=== PATIENT | female | born 1925 | race Caucasian/White ===

== ENCOUNTER 2016-07-27 06:28 | Inpatient (IN) | payer OTHER ==
--- NOTE | 2016-07-27 08:01 | PDOC ---
History of Present Illness <Saadia Thomas - Last Filed: 07/27/16 09:38> - General History Source: Patient Exam Limitations: No Limitations - History of Present Illness Initial Comments: 07/27/16 07:56 89-year-old high functioning female with history of hypertension and high cholesterol presents with 2 months of intermittent whole-body tremors, exacerbated last night with an episode that awoke her suddenly from sleep. Patient reports daily and almost constant whole-body tremors, described as a wave of shakiness that goes to her throat. The episodes are random, last seconds to minutes, but described as constant. She has no chest pain or palpitations or difficulty breathing, she has had no fevers or chills, no cough or vomiting or diarrhea, no urinary complaints. No changes in her medications, no recent travel or falls. She last saw her PCP, Dr. Yoo, a few months ago prior to symptom onset. Last night, patient awoke from sleep suddenly feeling as though she was gasping for air, so she presents for evaluation. Unclear whether this is typical of her prior episodes, she currently has no respiratory complaints. No known history of sleep apnea or episodes like this during her sleep. She does not use sleep aids. <Storm Gilman - Last Filed: 07/27/16 09:42> - General Chief Complaint: Tremors Stated Complaint: WEAKNESS Time Seen by Provider: 07/27/16 07:07 Past History <Saadia Thomas - Last Filed: 07/27/16 09:38> - Past Medical History HTN: Yes - Psycho/Social/Smoking Cessation Hx Suicidal Ideation: No Smoking History: Never smoked Information on smoking cessation initiated: No <Storm Gilman - Last Filed: 07/27/16 09:42> - Past Medical History Allergies/Adverse Reactions: Allergies Allergy/AdvReac Type Severity Reaction Status Date / Time No Known Allergies Allergy Verified 07/27/16 06:32 Home Medications: Ambulatory Orders Atorvastatin Ca [Lipitor] 40 mg PO DAILY 07/27/16 Bisoprolol Fumarate/Hctz [Bisoprolol-Hctz 10-6.25 mg Tab] 1 each PO DAILY Enalapril Maleate [Vasotec] 20 mg PO BID 07/27/16 Nifedipine ER [Procardia Xl -] 60 mg PO DAILY 07/27/16 Review of Systems - Review of Systems Constitutional: No: Chills, Fever, Night Sweats, Unintentional Wgt. Loss HEENTM: No: Nose Congestion, Throat Pain, Throat Swelling Respiratory: No: Cough, Shortness of Breath Cardiac (ROS): No: Chest Pain, Palpitations ABD/GI: No: Diarrhea, Nausea, Vomiting : No: Burning, Dysuria, Frequency Musculoskeletal: Yes: Other (L jaw mass for years, unchanged, unclear etiology) Neurological: No: Headache, Tingling, Weakness Endocrine: No: Intolerance to Cold, Intolerance to Heat All Other Systems: Reviewed and Negative <Storm Gilman - Last Filed: 07/27/16 09:42> *Physical Exam - Vital Signs Last Vital Signs Temp Pulse Resp BP Pulse Ox 98.5 F 105 H 18 154/77 93 L 07/27/16 06:32 07/27/16 06:32 07/27/16 06:32 07/27/16 06:32 07/27/16 06:32 <Saadia Thomas - Last Filed: 07/27/16 09:38> - Vital Signs Last Vital Signs Temp Pulse Resp BP Pulse Ox 98.5 F 105 H 18 154/77 93 L 07/27/16 06:32 07/27/16 06:32 07/27/16 06:32 07/27/16 06:32 07/27/16 06:32 - Physical Exam Comments: 07/27/16 08:00 Heart rate 90 on exam, afebrile. GENERAL: The patient is awake, alert, and fully oriented, in no acute distress. HEAD: Normal with no signs of trauma. EYES: PERRL, EOMI, sclera anicteric, conjunctiva clear with no pallor. ENT: oropharynx clear without exudates. Moist mucous membranes. Large about 8- 10 cm left facial mass that has been present for years, no evidence of infection or necrosis, nontender. NECK: Normal range of motion, supple without lymphadenopathy, JVD, or masses. LUNGS: Left basilar crackles, otherwise good air entry without wheezing or accessory muscle use HEART: Regular rate and rhythm with occasional premature beats, normal S1 and S2 without murmur or rub. ABDOMEN: Soft/nontender/nondistended. BS wnl. No guarding or rebound. No palpable masses. No hepatosplenomegaly. EXTREMITIES: Normal range of motion, no edema. 2+ distal pulses. No cords, erythema, or tenderness. NEUROLOGICAL: Cranial nerves II through XII grossly intact. Normal speech, normal gait. PSYCH: Normal mood, normal affect. SKIN: Warm, Dry, no rashes or lesions noted. <Storm Gilman - Last Filed: 07/27/16 09:42> Heart Score/ECG Review #1 ECG reviewed & interpreted by me at: 07:18 General ECG Interpretation: Sinus Rhythm (with occasional PAC), Normal Rate, Normal Intervals (QTC 452), No acute ischemic changes <Storm Gilman - Last Filed: 07/27/16 09:42> ED Treatment Course - LABORATORY CBC & Chemistry Diagram: 07/27/16 08:00 07/27/16 08:00 - ADDITIONAL ORDERS Additional order review: Laboratory Results 07/27/16 07/27/16 07/27/16 08:46 08:00 08:00 Sodium 135 L Potassium 3.4 L Chloride 107 Carbon Dioxide 24 Anion Gap 4 L BUN 10 Creatinine 1.2 H Creat Clearance w eGFR 42.30 Random Glucose 113 H Calcium 8.4 L Magnesium 1.9 Total Bilirubin 0.5 AST 12 L ALT 7 L Alkaline Phosphatase 150 H Creatine Kinase Cancelled 50 Troponin I Cancelled 0.02 Total Protein 6.2 L Albumin 3.2 L Urine Color Yellow Urine Appearance Clear Urine pH 5.0 Ur Specific [place] 1.017 Urine Protein Negative Urine Glucose (UA) Negative Urine Ketones Negative Urine Blood Negative Urine Nitrite Negative Urine Bilirubin Negative Urine Urobilinogen 2.0 e.u/dl H Ur Leukocyte Esterase 1+ H Urine Other Qns for micro 07/27/16 08:00 RBC 4.78 MCV 79.4 L MCHC 31.8 L RDW 16.9 H MPV 9.9 Neutrophils % 69.2 Lymphocytes % 18.4 Monocytes % 9.1 Eosinophils % 2.8 Basophils % 0.5 <Saadia Thomas - Last Filed: 07/27/16 09:38> - LABORATORY CBC & Chemistry Diagram: 07/27/16 08:00 07/27/16 08:00 - RADIOLOGY Radiology Studies Ordered: Category Date Time Status CHEST PA & LAT [RAD] Stat Radiology 07/27/16 07:12 Ordered <Storm Gilman - Last Filed: 07/27/16 09:42> Medical Decision Making - Medical Decision Making 07/27/16 09:[address] Donovan Delacruz 07/27/16 09:[address] Nafisa Delacruz. <Saadia Thomas - Last Filed: 07/27/16 09:38> - Medical Decision Making 07/27/16 08:02 89-year-old female with history of hypertension and high cholesterol presents with 2 months of nonspecific complaint of whole body tremor, now with an episode last night that seems consistent with sleep apnea. On arrival, noted to have O2 sat of 93%, has some left basilar crackles but otherwise is very well- appearing. EKG has APC, but otherwise is sinus without ischemia. Question electrolyte abnormality, question underlying infection but less likely, does not appear to be Parkinson-like, question arrhythmia. Will check labs, urinalysis EKG, chest x-ray Reassess, if above is within normal limits, can seek outpatient referral to Dr. Yoo 07/27/16 09:27 Mild electrolyte abnormalities with potassium 3.4, creatinine 1.2. CBC otherwise within normal limits without leukocytosis or severe anemia. Patient complaining of severe dyspnea when walking to the bathroom, no chest pain. On preliminary review of the CXR, there is consolidation in the LLL (? effusion, ? consolidation). Previous xray 5y ago, f/u CT read as diaphragmatic hernia. Given her level of dyspnea, should have cardiac workup given the crackles on exam and borderline O2 sat. 07/27/16 09:41 Accepted for admission by Dr. Delacruz, admitting for Dr. Yoo. <Storm Gilman - Last Filed: 07/27/16 09:42> *DC/Admit/Observation/Transfer <Saadia Thomas - Last Filed: 07/27/16 09:38> - Discharge Dispostion Admit: Yes <Storm Gilman - Last Filed: 07/27/16 09:42> Diagnosis at time of Disposition: Muscle tremor, Dyspnea on exertion - Referrals Referrals: Jeni Yoo MD [Primary Care Provider] -
[2016-07-27 08:14] LABS: BASOPHIL 0.5 % (0-2.0); EOSINOPHIL 2.8 % (0-4.5); MCH 25.3 pg (25.7-33.7); MCHC 31.8 g/dl (32.0-36.0); MEAN CELL VOLUME 79.4 fl (80-96); MEAN PLT VOLUME 9.9 fl (7.5-11.1); NEUTROPHILS 69.2 % (42.8-82.8); PLATELET COUNT 269 K/MM3 (134-434); RDW 16.9 % (11.6-15.6)
[2016-07-27 08:42] LABS: ALBUMIN 3.2 g/dl (3.4-5.0); CALCIUM 8.4 mg/dL (8.5-10.1); CREATININE 1.2 mg/dL (0.55-1.02); MAGNESIUM 1.9 mg/dL (1.8-2.4); TOT PROT 6.2 g/dl (6.4-8.2)
[2016-07-27 08:47] LABS: BILIRUBIN,TOTAL 0.5 mg/dL (0.2-1.0); TROPONIN I 0.02 ng/ml (0.00-0.05)
[2016-07-27 08:59] LABS: URINE APPEARANCE CLEAR; URINE BILIRUBIN NEGATIVE (NEGATIVE); URINE BLOOD NEGATIVE (NEGATIVE); URINE COLOR YELLOW; URINE GLUCOSE (UA) NEGATIVE (NEGATIVE); URINE KETONE NEGATIVE (NEGATIVE); URINE NITRITE NEGATIVE (NEGATIVE); URINE PROTEIN NEGATIVE (NEGATIVE); URINE UROBILINOGEN 2.0 E.U/dl E.U./dl (0.2-1.0)
[2016-07-27 09:07] LABS: URINE LEUK ESTERASE 1+ (NEGATIVE)
[2016-07-27] MEDS ORDERED: AZITHROMYCIN IVPB 500 MG in DEXTROSE 5%-WATER - 250 ML IVPB ONE (09:33)
[2016-07-27] MEDS ORDERED: CEFTRIAXONE 1 GM in DEXTROSE 5%-WATER - 50 ML IVPB ONE (09:33)
[2016-07-27] MEDS ORDERED: CEFTRIAXONE 50 ML ONE (10:00)
[2016-07-27] MEDS ORDERED: AZITHROMYCIN IVPB 250 ML IVPB ONE (10:00)
[2016-07-27] MEDS ORDERED: ONDANSETRON 4 MG/2 ML VIAL IVPB PRN (10:44)
[2016-07-27] MEDS ORDERED: ACETAMINOPHEN 325 MG TABLET (FP) PO PRN (10:44)
--- NOTE | 2016-07-27 10:49 | HP ---
Admitting History and Physical - Primary Care Physician PCP: Jeni Yoo - Admission Chief Complaint: I'm shaking History of Present Illness: Ms Stallings is a pleasant 89 year old female who comes in complaining of shaking. She says she has full body shaking, however she says it is internal in nature. Upon clarification it is not a physical tremor, she says she can walk and do ADLs without interference. She presents because she had an episode where she woke up gasping for breath. She states she does not snore. This has not happened before. She says it resolved quickly but she was concerned and came in. She also has been experiencing lightheadedness off and on over the past few weeks. She denies fevers, chills, dizziness, chest pain or pressure, palpitations, coughing, nausea, vomiting, diarrhea, constipation, difficulty or pain on urination. She says she has chronic swelling in her right leg and this is unchanged. No redness or pain History Source: Patient Limitations to Obtaining History: No Limitations - Past Medical History Cardiovascular: Yes: HTN, Hyperlipdemia - Past Surgical History Past Surgical History: Yes: None - Smoking History Smoking history: Never smoked - Alcohol/Substance Use Hx Alcohol Use: No History of Substance Use: reports: None - Social History Usual Living Arrangement: Yes: Alone ADL: Independent History of Recent Travel: No Home Medications - Allergies Allergies/Adverse Reactions: Allergies Allergy/AdvReac Type Severity Reaction Status Date / Time No Known Allergies Allergy Verified 07/27/16 06:32 - Home Medications Home Medications: Ambulatory Orders Atorvastatin Ca [Lipitor] 40 mg PO DAILY 07/27/16 Bisoprolol Fumarate/Hctz [Bisoprolol-Hctz 10-6.25 mg Tab] 1 each PO DAILY Enalapril Maleate [Vasotec] 20 mg PO BID 07/27/16 Nifedipine ER [Procardia Xl -] 60 mg PO DAILY 07/27/16 Family Disease History - Family Disease History Family History: Unremarkable Review of Systems Findings/Remarks: full review of systems obtained, as per HPI and otherwise negative Physical Examination Vital Signs: Vital Signs Temperature 98.5 F 07/27/16 06:32 Pulse Rate 105 H 07/27/16 06:32 Respiratory Rate 18 07/27/16 06:32 Blood Pressure 154/77 07/27/16 06:32 O2 Sat by Pulse Oximetry (%) 93 L 07/27/16 06:32 Constitutional: Yes: Well Nourished, No Distress, Calm Eyes: Yes: Conjunctiva Clear, EOM Intact HENT: Yes: Atraumatic, Normocephalic Cardiovascular: Yes: Regular Rate and Rhythm. No: Gallop, Murmur, Rub Respiratory: Yes: Regular, CTA Bilaterally. No: Rales, Rhonchi, Wheezes Gastrointestinal: Yes: Normal Bowel Sounds, Soft. No: Distention, Tenderness Extremities: Yes: WNL Edema: Yes Edema: RLE: Trace Labs: Laboratory Results - last 24 hr 07/27/16 07/28/16 07/28/16 16:05 01:10 05:40 WBC 7.3 RBC 4.33 Hgb 10.8 D Hct 33.9 MCV 78.3 L MCHC 32.0 RDW 16.6 H Plt Count 235 MPV 10.6 Neutrophils % 68.9 Lymphocytes % 16.4 Monocytes % 10.8 H Eosinophils % 3.3 Basophils % 0.6 Sodium Potassium Chloride Carbon Dioxide Anion Gap BUN Creatinine Random Glucose Calcium Phosphorus Magnesium Creatine Kinase 73 80 Troponin I 0.02 0.02 07/28/16 05:40 WBC RBC Hgb Hct MCV MCHC RDW Plt Count MPV Neutrophils % Lymphocytes % Monocytes % Eosinophils % Basophils % Sodium 144 Potassium 4.0 Chloride 108 H Carbon Dioxide 27 Anion Gap 9 BUN 10 Creatinine 1.1 H Random Glucose 86 D Calcium 8.3 L Phosphorus 3.0 Magnesium 1.9 Creatine Kinase Troponin I Imaging - Results Chest X-ray: Report Reviewed, Image Reviewed Problem List - Problems (1) Dyspnea on exertion Assessment/Plan: -observation admission, to telemetry -consult pulmonary -? sleep apnea Code(s): R06.09 - OTHER FORMS OF DYSPNEA (2) Muscle tremor Assessment/Plan: -sounds more cardiac than muscular -EKG reviewed -will monitor on telemetry, consult cardiology if needed Code(s): R25.1 - TREMOR, UNSPECIFIED (3) HTN (hypertension) Assessment/Plan: -controlled -continue home regimen Code(s): I10 - ESSENTIAL (PRIMARY) HYPERTENSION (4) HLD (hyperlipidemia) Assessment/Plan: -continue statin Code(s): E78.5 - HYPERLIPIDEMIA, UNSPECIFIED (5) Edema Assessment/Plan: -patient with trace RLE that is chronic -will check ECHO and duplex dopplers for further pathology Code(s): R60.9 - EDEMA, UNSPECIFIED (6) Mass Assessment/Plan: -chronic Code(s): R22.9 - LOCALIZED SWELLING, MASS AND LUMP, UNSPECIFIED
--- NOTE | 2016-07-27 11:01 | EKG ---
Test Reason : Blood Pressure : / mmHG Vent. Rate : 096 BPM Atrial Rate : 096 BPM P-R Int : 146 ms QRS Dur : 084 ms QT Int : 358 ms P-R-T Axes : 046 014 016 degrees QTc Int : 452 ms POOR DATA QUALITY, INTERPRETATION MAY BE ADVERSELY AFFECTED SINUS RHYTHM WITH PREMATURE ATRIAL COMPLEXES OTHERWISE NORMAL ECG WHEN COMPARED WITH ECG OF 08-SEP-2009 04:15, PREMATURE ATRIAL COMPLEXES ARE NOW PRESENT VENT. RATE HAS INCREASED BY 35 BPM Confirmed by TALIA URBAN MD ([id number]) on 07/27/2016 11:00:41 AM Referred By: Confirmed By:TALIA URBAN MD
[2016-07-27 11:08] LABS: THYROID STIMULATING HORMONE 0.93 uIU/ml (0.358-3.74)
[2016-07-27] MEDS ORDERED: HEPARIN NA (PORCINE) 5,000 UNITS/ML 1ML VIAL ONE (14:10)
[2016-07-27] MEDS: HEPARIN NA (PORCINE) 5,000 UNITS/ML 1ML VIAL SQ SCH ×2 (14:18→23:31)
--- NOTE | 2016-07-27 15:41 | CONSULT ---
Consult Consult Specialty:: PULM/CCM Referred by:: RADHA Reason for Consultation:: SOB / abnormal CXR - History of Present Illness Chief Complaint: SOB History of Present Illness: 89 F, with listed medical history. Known LLL hiatal hernia that is documented on CT imaging from 2010. Admitted due to awakening at night during sleep with an episode of gasping for air. No travel history or sick contacts. No fever or chills. No CP or otherwise symptoms of SOB. No significant history that would be consistent with Sleep Apnea. CXR: LLL blunting. - History Source History Provided By: Patient Limitations to Obtaining History: No Limitations - Smoking History Smoking history: Never smoked Home Medications - Allergies Allergies/Adverse Reactions: Allergies Allergy/AdvReac Type Severity Reaction Status Date / Time No Known Allergies Allergy Verified 07/27/16 06:32 - Home Medications Home Medications: Ambulatory Orders Atorvastatin Ca [Lipitor] 40 mg PO DAILY 07/27/16 Bisoprolol Fumarate/Hctz [Bisoprolol-Hctz 10-6.25 mg Tab] 1 each PO DAILY Enalapril Maleate [Vasotec] 20 mg PO BID 07/27/16 Nifedipine ER [Procardia Xl -] 60 mg PO DAILY 07/27/16 Review of Systems - Review of Systems Constitutional: denies: Chills, Fever, Lethargy, Loss of Appetite, Malaise, Night Sweats, Unintentional Wgt. Loss Eyes: reports: No Symptoms HENT: reports: No Symptoms Neck: reports: No Symptoms Cardiovascular: denies: Chest Pain, Palpitations, Shortness of Breath Respiratory: reports: Other (gasping at night). denies: Cough, Hemoptysis, SOB , SOB on Exertion, Wheezing Gastrointestinal: reports: Bloating, Indigestion. denies: Diarrhea, Dysphagia, Rectal Bleeding, Vomiting, Vomiting Blood Genitourinary: reports: No Symptoms Breasts: reports: No Symptoms Reported Musculoskeletal: reports: No Symptoms Integumentary: reports: No Symptoms Neurological: reports: No Symptoms Endocrine: reports: No Symptoms Hematology/Lymphatic: reports: No Symptoms Psychiatric: reports: No Symptoms Physical Exam Vital Signs: Vital Signs Temperature 98.5 F 07/27/16 06:32 Pulse Rate 109 H 07/27/16 14:49 Respiratory Rate 20 07/27/16 14:49 Blood Pressure 146/57 07/27/16 14:49 O2 Sat by Pulse Oximetry (%) 94 L 07/27/16 14:49 Constitutional: Yes: Well Nourished, No Distress, Calm Eyes: Yes: Conjunctiva Clear, EOM Intact HENT: Yes: Atraumatic, Other (Large non-tender mass left parotid area) Neck: Yes: Supple, Trachea Midline Cardiovascular: Yes: Regular Rate and Rhythm Respiratory: Yes: CTA Bilaterally Gastrointestinal: Yes: Normal Bowel Sounds, Soft ...Rectal Exam: Yes: Deferred Renal/: Yes: WNL Breast(s): Yes: WNL Musculoskeletal: Yes: WNL Extremities: Yes: WNL Edema: No Peripheral Pulses WNL: Yes Integumentary: Yes: WNL Neurological: Yes: Alert, Oriented ...Motor Strength: WNL Psychiatric: Yes: WNL, Alert, Oriented Imaging - Results Chest X-ray: Report Reviewed, Image Reviewed Problem List - Problems (1) Muscle tremor Code(s): R25.1 - TREMOR, UNSPECIFIED (2) Hiatal hernia Code(s): K44.9 - DIAPHRAGMATIC HERNIA WITHOUT OBSTRUCTION OR GANGRENE (3) Mass Code(s): R22.9 - LOCALIZED SWELLING, MASS AND LUMP, UNSPECIFIED Assessment/Plan PLAN: Would monitor off ABX for now -> LLL changes are likely due to atelectasis due to long standing Hiatal Hernia Can screen for [facility] as an outpatient O2 only as needed Incentive Spirometry Will need workup and possible biopsy of her left facial mass. Will follow Thank you. Dr Retana
[2016-07-27 16:57] LABS: TROPONIN I 0.02 ng/ml (0.00-0.05)
[2016-07-27 18:28] VITALS: BMI 26.5
[2016-07-27] MEDS: ENALAPRIL MALEATE 10 MG TABLET (FP) PO SCH (23:30)
[2016-07-27] MEDS: DOCUSATE SODIUM 100 MG CAPSULE (FP) PO SCH (23:30)
[2016-07-28 01:50] LABS: TROPONIN I 0.02 ng/ml (0.00-0.05)
[2016-07-28] MEDS: HEPARIN NA (PORCINE) 5,000 UNITS/ML 1ML VIAL SQ SCH (05:57)
[2016-07-28 07:53] LABS: BASOPHIL 0.6 % (0-2.0); EOSINOPHIL 3.3 % (0-4.5); MCH 25.1 pg (25.7-33.7); MEAN CELL VOLUME 78.3 fl (80-96); MEAN PLT VOLUME 10.6 fl (7.5-11.1); NEUTROPHILS 68.9 % (42.8-82.8); PLATELET COUNT 235 K/MM3 (134-434); RDW 16.6 % (11.6-15.6); WHITE BLOOD COUNT 7.3 K/mm3 (4.0-10.0)
[2016-07-28 08:18] LABS: CALCIUM 8.3 mg/dL (8.5-10.1); MAGNESIUM 1.9 mg/dL (1.8-2.4)
[2016-07-28 08:20] LABS: CREATININE 1.1 mg/dL (0.55-1.02)
[2016-07-28] MEDS: DOCUSATE SODIUM 100 MG CAPSULE (FP) PO SCH ×2 (09:02→21:55)
[2016-07-28] MEDS: NIFEdipine E.R 60 MG TABLET (UD) PO SCH (09:02)
[2016-07-28] MEDS: ENALAPRIL MALEATE 10 MG TABLET (FP) PO SCH ×2 (09:02→21:55)
[2016-07-28] MEDS ORDERED: PATIENT'S OWN MEDICATION (NON-FORMULARY) (Bisoprolol Fumarate/Hctz [Bisoprolol-Hctz 10-6.2 PO SCH (10:00)
--- NOTE | 2016-07-28 10:28 | PN ---
Progress Note, Physician History of Present Illness: pulmonary alert,no distress,-sob - Current Medication List Current Medications: Active Medications Acetaminophen (Tylenol -) 650 mg PO Q4H PRN PRN Reason: FEVER OR PAIN Atorvastatin Calcium (Lipitor -) 40 mg PO HS [facility] Docusate Sodium (Colace -) 100 mg PO BID [facility] Last Admin: 07/28/16 09:02 Dose: 100 mg Enalapril Maleate (Vasotec -) 20 mg PO BID [facility] Last Admin: 07/28/16 09:02 Dose: 20 mg Heparin Sodium (Porcine) (Heparin -) 5,000 unit SQ TID [facility] Last Admin: 07/28/16 05:57 Dose: 5,000 unit Nifedipine (Procardia Xl -) 60 mg PO DAILY [facility] Last Admin: 07/28/16 09:02 Dose: 60 mg Non-Formulary Medication (Bisoprolol Fumarate/Hctz [Bisoprolol-Hctz 10-6.25 Mg Tab]) 1 each PO DAILY [facility] Ondansetron HCl (Zofran Injection) 4 mg IVPB Q6H PRN PRN Reason: NAUSEA - Objective Vital Signs: Vital Signs Temperature 98 F 07/28/16 10:00 Pulse Rate 94 H 07/28/16 10:00 Respiratory Rate 18 07/28/16 10:00 Blood Pressure 150/82 07/28/16 10:00 O2 Sat by Pulse Oximetry (%) 97 07/28/16 08:00 Constitutional: Yes: Well Nourished, Calm Eyes: Yes: WNL HENT: Yes: WNL, Other (left facial mass) Neck: Yes: WNL Cardiovascular: Yes: Regular Rate and Rhythm, S1, S2 Respiratory: Yes: Diminished Gastrointestinal: Yes: WNL Extremities: Yes: WNL Edema: No Labs: CBC, BMP 07/28/16 05:40 07/28/16 05:40 Assessment/Plan Problem List - Problems (1) Muscle tremor Code(s): R25.1 - TREMOR, UNSPECIFIED (2) Hiatal hernia Code(s): K44.9 - DIAPHRAGMATIC HERNIA WITHOUT OBSTRUCTION OR GANGRENE (3) Mass Code(s): R22.9 - LOCALIZED SWELLING, MASS AND LUMP, UNSPECIFIED Assessment/Plan PLAN: LLL changes are likely due to atelectasis due to long standing Hiatal Hernia Can screen for [facility] as an outpatient O2 only as needed Incentive Spirometry possible biopsy of her left facial mass. DR PAINTER
[2016-07-28] MEDS ORDERED: ENOXAPARIN NA (PORCINE) 80 MG/0.8 ML DISP.SYRIN SQ SCH ×2 (12:30→12:45)
--- NOTE | 2016-07-28 12:56 | PN ---
Progress Note, Physician Chief Complaint: Ms Stallings says she is not feeling well. Feeling dizzy and short of breath. Also with the internal shaking again. No cp or n/v. - Current Medication List Current Medications: Active Medications Acetaminophen (Tylenol -) 650 mg PO Q4H PRN PRN Reason: FEVER OR PAIN Atorvastatin Calcium (Lipitor -) 40 mg PO HS [facility] Docusate Sodium (Colace -) 100 mg PO BID [facility] Last Admin: 07/28/16 09:02 Dose: 100 mg Enalapril Maleate (Vasotec -) 20 mg PO BID [facility] Last Admin: 07/28/16 09:02 Dose: 20 mg Enoxaparin Sodium (Lovenox -) 70 mg SQ BID [facility] Nifedipine (Procardia Xl -) 60 mg PO DAILY [facility] Last Admin: 07/28/16 09:02 Dose: 60 mg Non-Formulary Medication (Bisoprolol Fumarate/Hctz [Bisoprolol-Hctz 10-6.25 Mg Tab]) 1 each PO DAILY [facility] Ondansetron HCl (Zofran Injection) 4 mg IVPB Q6H PRN PRN Reason: NAUSEA - Objective Vital Signs: Vital Signs Temperature 98 F 07/28/16 10:00 Pulse Rate 94 H 07/28/16 10:00 Respiratory Rate 18 07/28/16 10:00 Blood Pressure 150/82 07/28/16 10:00 O2 Sat by Pulse Oximetry (%) 97 07/28/16 08:00 Constitutional: Yes: Well Nourished, Mild Distress Cardiovascular: Yes: Tachycardia, Pulse Irregular. No: Gallop, Murmur, Rub Respiratory: Yes: Regular, CTA Bilaterally, On Nasal O2. No: Rales, Rhonchi, Wheezes Gastrointestinal: Yes: Normal Bowel Sounds, Soft. No: Distention, Tenderness Extremities: Yes: WNL Edema: Yes Edema: RLE: Trace Labs: CBC, BMP 07/28/16 05:40 07/28/16 05:40 Problem List - Problems (1) Dyspnea on exertion Code(s): R06.09 - OTHER FORMS OF DYSPNEA (2) Muscle tremor Code(s): R25.1 - TREMOR, UNSPECIFIED (3) HTN (hypertension) Code(s): I10 - ESSENTIAL (PRIMARY) HYPERTENSION (4) HLD (hyperlipidemia) Code(s): E78.5 - HYPERLIPIDEMIA, UNSPECIFIED (5) Edema Code(s): R60.9 - EDEMA, UNSPECIFIED (6) Mass Code(s): R22.9 - LOCALIZED SWELLING, MASS AND LUMP, UNSPECIFIED (7) DVT (deep venous thrombosis) Code(s): I82.409 - ACUTE EMBOLISM AND THOMBOS UNSP DEEP VN UNSP LOWER EXTREMITY (8) Tachycardia Code(s): R00.0 - TACHYCARDIA, UNSPECIFIED Assessment/Plan (1) DVT Assessment/Plan: -DVT found on duplex dopplers -change heparin to therapeutic lovenox (2) Tachycardia Assessment/Plan: -DVT found, and ECHO reviewed showing pulmonary HTN -concerning for PE -stat CT scan chest with PE protocol -lovenox as above -cardiology and pulmonary consulted (3) HTN (hypertension) Assessment/Plan: -controlled -continue home regimen Code(s): I10 - ESSENTIAL (PRIMARY) HYPERTENSION (4) HLD (hyperlipidemia) Assessment/Plan: -continue statin Code(s): E78.5 - HYPERLIPIDEMIA, UNSPECIFIED (5) Mass Assessment/Plan: -chronic Code(s): R22.9 - LOCALIZED SWELLING, MASS AND LUMP, UNSPECIFIED
[2016-07-28] MEDS: ENOXAPARIN NA (PORCINE) 80 MG/0.8 ML DISP.SYRIN SQ SCH ×2 (13:09→21:55)
--- NOTE | 2016-07-28 15:37 | EKG ---
Test Reason : Blood Pressure : / mmHG Vent. Rate : 103 BPM Atrial Rate : 103 BPM P-R Int : 142 ms QRS Dur : 076 ms QT Int : 332 ms P-R-T Axes : 016 -08 029 degrees QTc Int : 434 ms SINUS TACHYCARDIA WITH PREMATURE ATRIAL COMPLEXES OTHERWISE NORMAL ECG WHEN COMPARED WITH ECG OF 27-JUL-2016 15:20, NO SIGNIFICANT CHANGE WAS FOUND Confirmed by GARRISON CHAND MD ([id number]) on 07/28/2016 3:37:02 PM Referred By: Alejandro CHAVIS Confirmed By:GARRISON CHAND MD
--- NOTE | 2016-07-28 16:18 | CON.CARD ---
Consult Consult Specialty:: cardio Referred by:: haile Reason for Consultation:: sob, pulm htn - History of Present Illness Chief Complaint: shaking, sob History of Present Illness: 89 yo female admitted for feeling of internal shaking/tremulousness and waking from sleep gasping for air. seen by pulm who reviewed CXR and did not feel any signs of PNA--has chronic hiatal hernia in left lower thorax with what is felt likely to be assctd ATX. she had LE edema noted, duplex showed DVT--AC started. CTA done--no PE Echo showed pulmonary HTN with estimated peak RVSP 58 (please note--this is not indicative of "severe" pulm htn, as described in the echo report). pt is a poor historian: describes pulsation feeling "like a motor" going thru her entire body at times, "everything is beating" not just rapid heart beating and not specifically experienced as palpitations. going on for a month or so. at first she says she constantly feels that way, then says it will calm down after happening for a little while--she cannot say how long the feeling lasts when it occurs. sometimes happens when she is sleeping. denies feeling anxious or nervous of late. feels dizzy, like her balance is off, which is preventing her from walking normally; no presync/syncope denies cp says she feels sob often, cannot elucidate when she feels this but it is not strictly exertional; happens at rest; when asked if wakes her from sleep she states the other night it happened b/c she was having a bad dream she has had a large mass on L side of face near jaw for 2 yrs PMH: HTN HPL hiatal hernia - Past Medical History Cardio/Vascular: Yes: HTN, Hyperlipdemia - Past Surgical History Past Surgical History: Yes: None - Alcohol/Substance Use Hx Alcohol Use: No History of Substance Use: reports: None - Smoking History Smoking history: Never smoked - Social History ADL: Independent History of Recent Travel: No Home Medications - Allergies Allergies/Adverse Reactions: Allergies Allergy/AdvReac Type Severity Reaction Status Date / Time No Known Allergies Allergy Verified 07/27/16 06:32 - Home Medications Home Medications: Ambulatory Orders Atorvastatin Ca [Lipitor] 40 mg PO DAILY 07/27/16 Bisoprolol Fumarate/Hctz [Bisoprolol-Hctz 10-6.25 mg Tab] 1 each PO DAILY Enalapril Maleate [Vasotec] 20 mg PO BID 07/27/16 Nifedipine ER [Procardia Xl -] 60 mg PO DAILY 07/27/16 Family Disease History - Family Disease History Family History: Denies (no cmp) Review of Systems - Review of Systems Constitutional: denies: Chills, Fever Eyes: denies: Eye Pain HENT: denies: Nasal Congestion Neck: denies: Stiffness Cardiovascular: reports: Palpitations (?) Respiratory: reports: PND (?). denies: Orthopnea Gastrointestinal: denies: Diarrhea, Rectal Bleeding Genitourinary: denies: Burning, Hematuria Musculoskeletal: denies: Muscle Pain Integumentary: denies: Rash Neurological: denies: Numbness, Seizure, Syncope Endocrine: denies: Excessive Sweating Hematology/Lymphatic: denies: Excessive Bleeding Vital Signs: Vital Signs Temperature 98.2 F 07/28/16 14:00 Pulse Rate 92 H 07/28/16 14:00 Respiratory Rate 18 07/28/16 14:00 Blood Pressure 138/51 07/28/16 14:00 O2 Sat by Pulse Oximetry (%) 97 07/28/16 08:00 Constitutional: Yes: Well Nourished, No Distress Eyes: No: Sclera Icterus HENT: Yes: Other (large, firm mass extruding from L cheek/jaw area). No: Nasal Congestion Neck: No: Decreased ROM Respiratory: Yes: CTA Bilaterally. No: Accessory Muscle Use, Rales, Wheezes Gastrointestinal: Yes: Normal Bowel Sounds. No: Distention, Hepatomegaly, Palpable Mass, Tenderness Cardiovascular: Yes: Regular Rate and Rhythm JVD: No Carotid Bruit: No PMI: Non-Displaced Heart Sounds: Yes: S1, S2. No: Gallop Murmur: No: Systolic Murmur, Diastolic Murmur Musculoskeletal: Yes: Other (No kyphosis) Extremities: No: Cold, Cyanosis Edema: No Peripheral Pulses: 2+ Left Carotid, 2+ Right Carotid, 2+ Left Doralis Pedis, 2+ Right Dorsalis Pedis Integumentary: No: Jaundice Neurological: Yes: Alert, Oriented (x3) Psychiatric: No: Agitated - Other Data Labs, Other Data: CBC, BMP 07/28/16 05:40 07/28/16 05:40 Troponin, BNP 07/28/16 01:10 Troponin I 0.02 Troponin, BNP 07/28/16 01:10 Troponin I 0.02 Laboratory Tests 07/27/16 07/27/16 07/28/16 08:00 16:05 01:10 WBC Hgb Plt Count Sodium Potassium Carbon Dioxide BUN Creatinine AST 12 L ALT 7 L Troponin I 0.02 0.02 0.02 TSH 0.93 07/28/16 07/28/16 05:40 05:40 WBC 7.3 Hgb 10.8 D Plt Count 235 Sodium 144 Potassium 4.0 Carbon Dioxide 27 BUN 10 Creatinine 1.1 H AST ALT Troponin I TSH ekg #1: NSR with APCs; normal axis/interv; no path q's; nonsp ST-T inferior leads ekg #2 (07/28): NSR with APCs telemetry: sinus with freq APCS, + probable MAT (11:37am); episode of tachy to 130s at 15:22 with loss of visible p-waves, likely paroxysmal AFib Assessment/Plan Echo 07/27/16: nl LV/EF; nl RV; mild LAE/PIPE; mild TR; peak RVSP 58; trivial peric eff not hemody significant sob, PND: -suspect sx's may have correlated with episodes of rapid atrial arrhythmia/AF ( with assctd internal tremulousness as well) -no chf findings on CXR or CT chest here -BNP underwhelming (300s) -highly unlikely that moderately elevated pulm pressure would cause this, if not acutely elevated (which it likely is not here, since no PE found and since RV is not dilated) -will check V/Q to confirm no PE, given suspicion of MAT on tele -sx's could be explained by BONILLA, which could also explain the pulm HTN--rec sleep study as outpt -no isch ecg findings and serial trop neg x 3--stress testing not indicated for this sx, though should consider if she develops activity intolerance or exertional sob parox AF, MAT: -tele mostly sinus with APCs and one episode of suspected MAT; -however there appears to be paroxysmal afib as well -started on AC here for DVT -given CHADS VASC is 4, with approx 4%/year CVA risk (which is > expected bleeding risk from AC), would rec indefinite AC for cva prophylaxis--would start NOAC on discharge which is also indicated for DVT tx (radha, e.g.) -d/c bisprolol and start toprol 25 bid -if continued rapid AF, will change nifedipine to diltiazem tremulousness: -? due to paroxysmal atrial arrhythmia, though her description of persisting sx' s for much of day would argue against this -observe tele to correlate sx's at times of atrial arrhythmia -observe sx's on metopr (+/- diltiazem, depending on tele) -TSH normal LE DVT: -AC per pmd -? hypercoag w/u indicated--defer to dr be HTN: -bp controlled here -changing bisoprolol-HCT to metoprolol for PAF control--monitor bp trend HPL: -cont outpt med regimen
[2016-07-28] MEDS: METOPROLOL SUCCINATE 25 MG TAB.SR.24H (FP) PO SCH (21:55)
[2016-07-28] MEDS: ATORVASTATIN CA 40 MG TABLET (FP) PO SCH (21:55)
[2016-07-29 09:29] LABS: BASOPHIL 0.9 % (0-2.0); EOSINOPHIL 3.2 % (0-4.5); MCHC 31.8 g/dl (32.0-36.0); MEAN CELL VOLUME 78.8 fl (80-96); MEAN PLT VOLUME 9.5 fl (7.5-11.1); NEUTROPHILS 68.5 % (42.8-82.8); PLATELET COUNT 233 K/MM3 (134-434); RDW 16.8 % (11.6-15.6); WHITE BLOOD COUNT 6.1 K/mm3 (4.0-10.0)
[2016-07-29 09:30] LABS: CALCIUM 8.1 mg/dL (8.5-10.1); CREATININE 1.1 mg/dL (0.55-1.02); PHOSPHOROUS 3.6 mg/dL (2.5-4.9)
[2016-07-29 09:32] LABS: MAGNESIUM 1.9 mg/dL (1.8-2.4)
[2016-07-29] MEDS: DOCUSATE SODIUM 100 MG CAPSULE (FP) PO SCH ×2 (09:42→21:37)
[2016-07-29] MEDS: METOPROLOL SUCCINATE 25 MG TAB.SR.24H (FP) PO SCH ×2 (09:43→21:37)
[2016-07-29] MEDS: NIFEdipine E.R 60 MG TABLET (UD) PO SCH (09:43)
[2016-07-29] MEDS: ENOXAPARIN NA (PORCINE) 80 MG/0.8 ML DISP.SYRIN SQ SCH ×2 (09:43→21:38)
[2016-07-29] MEDS: ENALAPRIL MALEATE 10 MG TABLET (FP) PO SCH ×2 (09:43→21:37)
--- NOTE | 2016-07-29 11:28 | PN ---
Progress Note (short form) - Note Progress Note: s: no cp palps dizzy; sob better o: Vital Signs Period Temp Pulse Resp BP Sys/Galvez Pulse Ox Last 24 Hr 97 F-98.2 F 72-99 16-18 122-140/51-88 97-98 Constitutional: Yes: Well Nourished, No Distress Eyes: No: Sclera Icterus Respiratory: Yes: CTA Bilaterally. No: Accessory Muscle Use, Rales, Wheezes Gastrointestinal: Yes: Normal Bowel Sounds. No: Distention, Hepatomegaly, Palpable Mass, Tenderness Cardiovascular: Yes: Regular Rate and Rhythm JVD: No Heart Sounds: Yes: S1, S2. No: Gallop Murmur: No: Systolic Murmur, Diastolic Murmur Extremities: No: Cold, Cyanosis Edema: No Integumentary: No: Jaundice Neurological: Yes: Alert, Oriented (x3) Psychiatric: No: Agitated Current Medications Generic Name Dose Route Start Last Admin Trade Name Freq PRN Reason Stop Dose Admin Acetaminophen 650 mg 07/27/16 10:44 Tylenol - PO Q4H PRN FEVER OR PAIN Atorvastatin Calcium 40 mg 07/28/16 22:00 07/28/16 21:55 Lipitor - PO 40 mg HS MARIELLE Administration Docusate Sodium 100 mg 07/27/16 22:00 07/29/16 09:42 Colace - PO 100 mg BID MARIELLE Administration Enalapril Maleate 20 mg 07/27/16 22:00 07/29/16 09:43 Vasotec - PO 20 mg BID MARIELLE Administration Enoxaparin Sodium 70 mg 07/28/16 12:45 07/29/16 09:43 Lovenox - SQ 70 mg BID MARIELLE Administration Metoprolol Succinate 25 mg 07/28/16 22:00 07/29/16 09:43 Toprol Xl - PO 25 mg BID MARIELLE Administration Nifedipine 60 mg 07/28/16 10:00 07/29/16 09:43 Procardia Xl - PO 60 mg DAILY MARIELLE Administration Ondansetron HCl 4 mg 07/27/16 10:44 Zofran Injection IVPB Q6H PRN NAUSEA CBC, BMP 07/29/16 09:18 07/29/16 05:38 ekg #1: NSR with APCs; normal axis/interv; no path q's; nonsp ST-T inferior leads ekg #2 (1/24): NSR with APCs telemetry: sr, brief atrial run, no afib Echo 07/27/16: nl LV/EF; nl RV; mild LAE/PIPE; mild TR; peak RVSP 58; trivial peric eff not hemody significant Assessment/Plan sob, PND: -suspect sx's may have correlated with episodes of rapid atrial arrhythmia/AF ( with assctd internal tremulousness as well) -no chf findings on CXR or CT chest here -highly unlikely that moderately elevated pulm pressure would cause this, if not acutely elevated (which it likely is not here, since no PE found and since RV is not dilated) -sx's could be explained by BONILLA, which could also explain the pulm HTN--rec sleep study as outpt -no isch ecg findings and serial trop neg x 3--stress testing not indicated for this sx, though should consider if she develops activity intolerance or exertional sob parox AF, MAT: -tele mostly sinus with APCs and one episode of suspected MAT; -however there appears to be paroxysmal afib as well -started on AC here for DVT -given CHADS VASC is 4, with approx 4%/year CVA risk (which is > expected bleeding risk from AC), would rec indefinite AC for cva prophylaxis--would start NOAC on discharge which is also indicated for DVT tx (xarelto, e.g.) -cont toprol 25 bid -if continued rapid AF, will change nifedipine to diltiazem tremulousness: -no obvious cardiac etiology LE DVT: -AC per pmd -? hypercoag w/u indicated--defer to dr be HTN: -bp controlled here -changed bisoprolol-HCT to metoprolol for PAF control HPL: -cont outpt med regimen
--- NOTE | 2016-07-29 19:06 | PN ---
Progress Note, Physician Chief Complaint: Ms Stallings says she is dizzy. Says it is not vertigo, but lightheadedness. Says she feels it every time she stands. No cp, sob, n/v. Patient is incredible anxious. - Current Medication List Current Medications: Active Medications Acetaminophen (Tylenol -) 650 mg PO Q4H PRN PRN Reason: FEVER OR PAIN Atorvastatin Calcium (Lipitor -) 40 mg PO HS [facility] Last Admin: 07/28/16 21:55 Dose: 40 mg Docusate Sodium (Colace -) 100 mg PO BID [facility] Last Admin: 07/29/16 09:42 Dose: 100 mg Enalapril Maleate (Vasotec -) 20 mg PO BID [facility] Last Admin: 07/29/16 09:43 Dose: 20 mg Enoxaparin Sodium (Lovenox -) 70 mg SQ BID [facility] Last Admin: 07/29/16 09:43 Dose: 70 mg Metoprolol Succinate (Toprol Xl -) 25 mg PO BID [facility] Last Admin: 07/29/16 09:43 Dose: 25 mg Nifedipine (Procardia Xl -) 60 mg PO DAILY [facility] Last Admin: 07/29/16 09:43 Dose: 60 mg Ondansetron HCl (Zofran Injection) 4 mg IVPB Q6H PRN PRN Reason: NAUSEA - Objective Vital Signs: Vital Signs Temperature 97.8 F 07/29/16 15:28 Pulse Rate 77 07/29/16 14:42 Respiratory Rate 18 07/29/16 09:00 Blood Pressure 134/60 07/29/16 14:42 O2 Sat by Pulse Oximetry (%) 98 07/29/16 08:00 Constitutional: Yes: Well Nourished, No Distress, Calm HENT: Yes: Other (large L sided mass) Cardiovascular: Yes: Pulse Irregular. No: Tachycardia, Gallop, Murmur, Rub Respiratory: Yes: Regular, CTA Bilaterally. No: Rales, Rhonchi, Wheezes Gastrointestinal: Yes: Normal Bowel Sounds, Soft. No: Distention, Tenderness Extremities: Yes: WNL Edema: No Labs: CBC, BMP 07/29/16 09:18 07/29/16 05:38 Problem List - Problems (1) Dyspnea on exertion Code(s): R06.09 - OTHER FORMS OF DYSPNEA (2) Muscle tremor Code(s): R25.1 - TREMOR, UNSPECIFIED (3) HTN (hypertension) Code(s): I10 - ESSENTIAL (PRIMARY) HYPERTENSION (4) HLD (hyperlipidemia) Code(s): E78.5 - HYPERLIPIDEMIA, UNSPECIFIED (5) Edema Code(s): R60.9 - EDEMA, UNSPECIFIED (6) Mass Code(s): R22.9 - LOCALIZED SWELLING, MASS AND LUMP, UNSPECIFIED (7) DVT (deep venous thrombosis) Code(s): I82.409 - ACUTE EMBOLISM AND THOMBOS UNSP DEEP VN UNSP LOWER EXTREMITY (8) Tachycardia Code(s): R00.0 - TACHYCARDIA, UNSPECIFIED Assessment/Plan (1) DVT Assessment/Plan: -no PE -continue lovenox currently -plan to change to xarelto on discharge (2) Atrial fibrillation Assessment/Plan: -cardiology following and appreciate assistance -found to have atrial fibrillation -will benefit from longterm anticoagulation -started on toprol xl (3) HTN (hypertension) Assessment/Plan: -controlled -continue home regimen Code(s): I10 - ESSENTIAL (PRIMARY) HYPERTENSION (4) HLD (hyperlipidemia) Assessment/Plan: -continue statin Code(s): E78.5 - HYPERLIPIDEMIA, UNSPECIFIED (5) Mass Assessment/Plan: -patient says she was supposed to have this evaluated but was scared -been present for a few years -will obtain CT scan Code(s): R22.9 - LOCALIZED SWELLING, MASS AND LUMP, UNSPECIFIED (6) Lightheadedness -patient specifically says it is not dizziness but lightheadedness -however patient has a lot of non-specific complaints -suspect some of these complaints are secondary to anxiety -however, considering patient has unevaluated facial mass, will obtain CT scan of the head -also check orthostatics -PT consult
[2016-07-29] MEDS: ATORVASTATIN CA 40 MG TABLET (FP) PO SCH (21:37)
[2016-07-30 08:15] LABS: BASOPHIL 0.5 % (0-2.0); EOSINOPHIL 3.8 % (0-4.5); MCH 25.1 pg (25.7-33.7); MCHC 31.6 g/dl (32.0-36.0); MEAN CELL VOLUME 79.3 fl (80-96); MEAN PLT VOLUME 10.8 fl (7.5-11.1); NEUTROPHILS 60.9 % (42.8-82.8); PLATELET COUNT 228 K/MM3 (134-434); RDW 17.3 % (11.6-15.6); WHITE BLOOD COUNT 6.2 K/mm3 (4.0-10.0)
[2016-07-30 08:56] LABS: CALCIUM 8.3 mg/dL (8.5-10.1); MAGNESIUM 2.1 mg/dL (1.8-2.4); PHOSPHOROUS 3.8 mg/dL (2.5-4.9)
--- NOTE | 2016-07-30 10:32 | PN ---
Progress Note (short form) - Note Progress Note: s: no cp palps sob; +dizzy o: Vital Signs Period Temp Pulse Resp BP Sys/Galvez Pulse Ox Last 24 Hr 97.7 F-98.1 F 61-81 18-20 132-136/51-75 Constitutional: Yes: Well Nourished, No Distress Eyes: No: Sclera Icterus Respiratory: Yes: CTA Bilaterally. No: Accessory Muscle Use, Rales, Wheezes Gastrointestinal: Yes: Normal Bowel Sounds. No: Distention, Hepatomegaly, Palpable Mass, Tenderness Cardiovascular: Yes: Regular Rate and Rhythm JVD: No Heart Sounds: Yes: S1, S2. No: Gallop Murmur: No: Systolic Murmur, Diastolic Murmur Extremities: No: Cold, Cyanosis Edema: No Integumentary: No: Jaundice Neurological: Yes: Alert, Oriented (x3) Psychiatric: No: Agitated Current Medications Generic Name Dose Route Start Last Admin Trade Name Freq PRN Reason Stop Dose Admin Acetaminophen 650 mg 07/27/16 10:44 Tylenol - PO Q4H PRN FEVER OR PAIN Atorvastatin Calcium 40 mg 07/28/16 22:00 07/29/16 21:37 Lipitor - PO 40 mg HS MARIELLE Administration Docusate Sodium 100 mg 07/27/16 22:00 07/29/16 21:37 Colace - PO 100 mg BID MARIELLE Administration Enalapril Maleate 20 mg 07/27/16 22:00 07/29/16 21:37 Vasotec - PO 20 mg BID MARIELLE Administration Enoxaparin Sodium 70 mg 07/28/16 12:45 07/29/16 21:38 Lovenox - SQ 70 mg BID MARIELLE Administration Metoprolol Succinate 25 mg 07/28/16 22:00 07/29/16 21:37 Toprol Xl - PO 25 mg BID MARIELLE Administration Nifedipine 60 mg 07/28/16 10:00 07/29/16 09:43 Procardia Xl - PO 60 mg DAILY MARIELLE Administration Ondansetron HCl 4 mg 07/27/16 10:44 Zofran Injection IVPB Q6H PRN NAUSEA CBC, BMP 07/30/16 06:10 07/30/16 06:10 ekg #1: NSR with APCs; normal axis/interv; no path q's; nonsp ST-T inferior leads ekg #2 (07/28): NSR with APCs telemetry: sr, artifact Echo 07/27/16: nl LV/EF; nl RV; mild LAE/PIPE; mild TR; peak RVSP 58; trivial peric eff not hemody significant Assessment/Plan sob, PND: -suspect sx's may have correlated with episodes of rapid atrial arrhythmia/AF ( with assctd internal tremulousness as well) -no chf findings on CXR or CT chest here -highly unlikely that moderately elevated pulm pressure would cause this, if not acutely elevated (which it likely is not here, since no PE found and since RV is not dilated) -sx's could be explained by BONILLA, which could also explain the pulm HTN--rec sleep study as outpt -no isch ecg findings and serial trop neg x 3--stress testing not indicated for this sx, though should consider if she develops activity intolerance or exertional sob parox AF, MAT: -tele mostly sinus with APCs and one episode of suspected MAT; -however there appears to be paroxysmal afib as well -started on AC here for DVT -given CHADS VASC is 4, with approx 4%/year CVA risk (which is > expected bleeding risk from AC), would rec indefinite AC for cva prophylaxis--would start NOAC on discharge which is also indicated for DVT tx (xarelto, e.g.) -cont toprol 25 bid -if continued rapid AF, will change nifedipine to diltiazem tremulousness: -no obvious cardiac etiology LE DVT: -AC per pmd -? hypercoag w/u indicated--defer to dr be HTN: -bp controlled here -changed bisoprolol-HCT to metoprolol for PAF control HPL: -cont outpt med regimen dizzy: -orthostatics normal here -head/neck ct pending
[2016-07-30] MEDS: DOCUSATE SODIUM 100 MG CAPSULE (FP) PO SCH ×2 (11:05→23:04)
[2016-07-30] MEDS: METOPROLOL SUCCINATE 25 MG TAB.SR.24H (FP) PO SCH ×2 (11:05→23:04)
[2016-07-30] MEDS: ENALAPRIL MALEATE 10 MG TABLET (FP) PO SCH ×2 (11:05→23:04)
[2016-07-30] MEDS: NIFEdipine E.R 60 MG TABLET (UD) PO SCH (11:06)
[2016-07-30] MEDS: ENOXAPARIN NA (PORCINE) 80 MG/0.8 ML DISP.SYRIN SQ SCH ×2 (11:06→23:04)
--- NOTE | 2016-07-30 13:26 | PN ---
Progress Note, Physician Chief Complaint: Ms Stallings continues to say she is dizzy, however now is describing it as being off balance. No cp, sob, n/v. - Current Medication List Current Medications: Active Medications Acetaminophen (Tylenol -) 650 mg PO Q4H PRN PRN Reason: FEVER OR PAIN Atorvastatin Calcium (Lipitor -) 40 mg PO HS [facility] Last Admin: 07/29/16 21:37 Dose: 40 mg Docusate Sodium (Colace -) 100 mg PO BID [facility] Last Admin: 07/30/16 11:05 Dose: 100 mg Enalapril Maleate (Vasotec -) 20 mg PO BID [facility] Last Admin: 07/30/16 11:05 Dose: 20 mg Enoxaparin Sodium (Lovenox -) 70 mg SQ BID [facility] Last Admin: 07/30/16 11:06 Dose: 70 mg Metoprolol Succinate (Toprol Xl -) 25 mg PO BID [facility] Last Admin: 07/30/16 11:05 Dose: 25 mg Nifedipine (Procardia Xl -) 60 mg PO DAILY [facility] Last Admin: 07/30/16 11:06 Dose: 60 mg Ondansetron HCl (Zofran Injection) 4 mg IVPB Q6H PRN PRN Reason: NAUSEA - Objective Vital Signs: Vital Signs Temperature 97.7 F 07/30/16 02:00 Pulse Rate 61 07/30/16 06:00 Respiratory Rate 20 07/30/16 06:00 Blood Pressure 134/71 07/30/16 06:00 O2 Sat by Pulse Oximetry (%) 98 07/29/16 08:00 Constitutional: Yes: Well Nourished, No Distress, Calm HENT: Yes: Other (L sided facial mass) Cardiovascular: Yes: Regular Rate and Rhythm. No: Gallop, Murmur, Rub Respiratory: Yes: Regular, CTA Bilaterally. No: Rales, Rhonchi, Wheezes Gastrointestinal: Yes: Normal Bowel Sounds, Soft. No: Distention, Tenderness Extremities: Yes: WNL Edema: No Labs: CBC, BMP 07/30/16 06:10 07/30/16 06:10 Problem List - Problems (1) Dyspnea on exertion Code(s): R06.09 - OTHER FORMS OF DYSPNEA (2) Muscle tremor Code(s): R25.1 - TREMOR, UNSPECIFIED (3) HTN (hypertension) Code(s): I10 - ESSENTIAL (PRIMARY) HYPERTENSION (4) HLD (hyperlipidemia) Code(s): E78.5 - HYPERLIPIDEMIA, UNSPECIFIED (5) Edema Code(s): R60.9 - EDEMA, UNSPECIFIED (6) Mass Code(s): R22.9 - LOCALIZED SWELLING, MASS AND LUMP, UNSPECIFIED (7) DVT (deep venous thrombosis) Code(s): I82.409 - ACUTE EMBOLISM AND THOMBOS UNSP DEEP VN UNSP LOWER EXTREMITY (8) Tachycardia Code(s): R00.0 - TACHYCARDIA, UNSPECIFIED Assessment/Plan (1) DVT Assessment/Plan: -no PE -continue lovenox currently -plan to change to xarelto on discharge (2) Atrial fibrillation Assessment/Plan: -cardiology following and appreciate assistance -found to have atrial fibrillation -will benefit from long term care administrator anticoagulation -continue toprol xl (3) HTN (hypertension) Assessment/Plan: -controlled -continue home regimen Code(s): I10 - ESSENTIAL (PRIMARY) HYPERTENSION (4) HLD (hyperlipidemia) Assessment/Plan: -continue statin Code(s): E78.5 - HYPERLIPIDEMIA, UNSPECIFIED (5) Mass Assessment/Plan: -CT scan of the head and brain obtained -will consult hematology/oncology since has unprovoked DVT and possible weight loss -continue lovenox, patient may need biopsy Code(s): R22.9 - LOCALIZED SWELLING, MASS AND LUMP, UNSPECIFIED (6) Lightheadedness -patient now describes this as being off balance -was saying this happened since she got here, but now says been going on for longer -continue PT, work up mass
--- NOTE | 2016-07-30 14:23 | EKG ---
Test Reason : Blood Pressure : / mmHG Vent. Rate : 099 BPM Atrial Rate : 099 BPM P-R Int : 156 ms QRS Dur : 068 ms QT Int : 354 ms P-R-T Axes : 106 -30 018 degrees QTc Int : 454 ms POOR DATA QUALITY, INTERPRETATION MAY BE ADVERSELY AFFECTED SINUS RHYTHM WITH PREMATURE ATRIAL COMPLEXES LEFT AXIS DEVIATION SEPTAL INFARCT , AGE UNDETERMINED ABNORMAL ECG WHEN COMPARED WITH ECG OF 27-JUL-2016 07:18, QRS AXIS SHIFTED LEFT Confirmed by SHANELLE AGUILAR MD ([id number]) on 07/30/2016 2:23:25 PM Referred By: Confirmed By:SHANELLE AGUILAR MD
--- NOTE | 2016-07-30 17:30 | CONSULT ---
Consult - text type - Consultation Consultation Note: 89-year-old high functioning female with history of hypertension and high cholesterol presents with 2 months of intermittent whole-body tremors, exacerbated last night with an episode that awoke her suddenly from sleep. She reports dizziness and gait unsteadiness and states she cannot walk Lt. parotid mass noted for 2 yrs. Patient was afraid and did not go for any further w/u. Painless mass slowly growing She has no chest pain or palpitations or difficulty breathing, she has had no fevers or chills, no cough or vomiting or diarrhea, no urinary complaints. No changes in her medications, no recent travel or falls. N pain - Past Medical History HTN: Yes Hyperlipidemia - Psycho/Social/Smoking Cessation Hx Smoking History: remote history of smoking Allergies/Adverse Reactions: Allergies Allergy/AdvReac Type Severity Reaction Status Date / Time No Known Allergies Allergy Verified 07/27/16 06:32 Home Medications: Ambulatory Orders Atorvastatin Ca [Lipitor] 40 mg PO DAILY 07/27/16 Bisoprolol Fumarate/Hctz [Bisoprolol-Hctz 10-6.25 mg Tab] 1 each PO DAILY Enalapril Maleate [Vasotec] 20 mg PO BID 07/27/16 Nifedipine ER [Procardia Xl -] 60 mg PO DAILY 07/27/16 Current Medications Acetaminophen (Tylenol -) 650 mg PO Q4H PRN PRN Reason: FEVER OR PAIN Atorvastatin Calcium (Lipitor -) 40 mg PO HS [facility] Last Admin: 07/29/16 21:37 Dose: 40 mg Docusate Sodium (Colace -) 100 mg PO BID [facility] Last Admin: 07/30/16 11:05 Dose: 100 mg Enalapril Maleate (Vasotec -) 20 mg PO BID [facility] Last Admin: 07/30/16 11:05 Dose: 20 mg Enoxaparin Sodium (Lovenox -) 70 mg SQ BID [facility] Last Admin: 07/30/16 11:06 Dose: 70 mg Metoprolol Succinate (Toprol Xl -) 25 mg PO BID [facility] Last Admin: 07/30/16 11:05 Dose: 25 mg Nifedipine (Procardia Xl -) 60 mg PO DAILY [facility] Last Admin: 07/30/16 11:06 Dose: 60 mg Ondansetron HCl (Zofran Injection) 4 mg IVPB Q6H PRN PRN Reason: NAUSEA Last Vital Signs Temp Pulse Resp BP Pulse Ox 98.4 F 64 20 128/68 98 07/30/16 13:39 07/30/16 13:39 07/30/16 13:39 07/30/16 13:39 07/30/16 10:00 HEENT: Lt. parotid, firm, mobile mass Oropharynx: No thrush, No mucositis Nodes: Without adenopathy Breasts: Without masses Cor: RSR, No murmurs, No gallops Lungs: Clear to P&A Abd: Soft, Normal bowel sounds, No organomegaly Ext:No significant edema Skin: No rashes, Integument intact Abnormal Lab Results 07/30/16 07/30/16 06:10 06:10 MCV 79.3 L MCHC 31.6 L RDW 17.3 H Monocytes % 10.3 H Calcium 8.3 L A/P 89 y/o patient presents with tremulous feeling in throat , whole bgait unsteadiness, dizziness, Lt. parotid mass. Noted to have afib. 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 Did not get w/u as she was scared. 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 atrophy, ventricu;ar dilatation and large Lt. parotid mass CT angio chest --no PE will consider MRI , biopsy, consult head and neck surgery, rad-onc rLE post. tibial DVT--on lovenox check PT/PTT to consider xeralto for afib/DVT once Lt. parotid tumor management decided
[2016-07-30] MEDS: ATORVASTATIN CA 40 MG TABLET (FP) PO SCH (23:04)
[2016-07-31 07:23] LABS: BASOPHIL 0.6 % (0-2.0); MCH 25.1 pg (25.7-33.7); MCHC 31.6 g/dl (32.0-36.0); MEAN CELL VOLUME 79.4 fl (80-96); MEAN PLT VOLUME 10.5 fl (7.5-11.1); NEUTROPHILS 69.1 % (42.8-82.8); PLATELET COUNT 219 K/MM3 (134-434); RDW 17.3 % (11.6-15.6); WHITE BLOOD COUNT 8.5 K/mm3 (4.0-10.0)
[2016-07-31 07:51] LABS: CALCIUM 8.2 mg/dL (8.5-10.1); CREATININE 1.1 mg/dL (0.55-1.02); PHOSPHOROUS 3.6 mg/dL (2.5-4.9)
[2016-07-31 08:29] LABS: INR 1.06 (0.82-1.09); PROTHROMBIN TIME (PATIENT) 11.7 SEC (9.98-11.88)
[2016-07-31 08:31] LABS: ACTIVATED PTT 41.5 SECONDS (26.9-34.4)
[2016-07-31] MEDS: METOPROLOL SUCCINATE 25 MG TAB.SR.24H (FP) PO SCH ×2 (09:57→22:30)
[2016-07-31] MEDS: NIFEdipine E.R 60 MG TABLET (UD) PO SCH (09:57)
[2016-07-31] MEDS: ENALAPRIL MALEATE 10 MG TABLET (FP) PO SCH ×2 (09:58→22:30)
[2016-07-31] MEDS: DOCUSATE SODIUM 100 MG CAPSULE (FP) PO SCH ×2 (09:58→22:30)
[2016-07-31] MEDS: ENOXAPARIN NA (PORCINE) 80 MG/0.8 ML DISP.SYRIN SQ SCH ×2 (09:58→22:31)
[2016-07-31 10:02] LABS: FERRITIN 25.557 ng/ml (6.9-282.5)
--- NOTE | 2016-07-31 10:53 | PN ---
Progress Note (short form) - Note Progress Note: s: no cp palps sob; +dizzy/balance issues when walking o: Vital Signs Period Temp Pulse Resp BP Sys/Galvez Pulse Ox Last 24 Hr 97.7 F-98.4 F 61-73 18-20 120-152/51-73 96 Constitutional: Yes: Well Nourished, No Distress Eyes: No: Sclera Icterus Respiratory: Yes: CTA Bilaterally. No: Accessory Muscle Use, Rales, Wheezes Gastrointestinal: Yes: Normal Bowel Sounds. No: Distention, Hepatomegaly, Palpable Mass, Tenderness Cardiovascular: Yes: Regular Rate and Rhythm JVD: No Heart Sounds: Yes: S1, S2. No: Gallop Murmur: No: Systolic Murmur, Diastolic Murmur Extremities: No: Cold, Cyanosis Edema: No Integumentary: No: Jaundice Neurological: Yes: Alert, Oriented (x3) Psychiatric: No: Agitated Current Medications Generic Name Dose Route Start Last Admin Trade Name Freq PRN Reason Stop Dose Admin Acetaminophen 650 mg 07/27/16 10:44 Tylenol - PO Q4H PRN FEVER OR PAIN Atorvastatin Calcium 40 mg 07/28/16 22:00 07/30/16 23:04 Lipitor - PO 40 mg HS MARIELLE Administration Docusate Sodium 100 mg 07/27/16 22:00 07/31/16 09:58 Colace - PO Not Given BID MARIELLE Enalapril Maleate 20 mg 07/27/16 22:00 07/31/16 09:58 Vasotec - PO 20 mg BID MARIELLE Administration Enoxaparin Sodium 70 mg 07/28/16 12:45 07/31/16 09:58 Lovenox - SQ 70 mg BID MARIELLE Administration Metoprolol Succinate 25 mg 07/28/16 22:00 07/31/16 09:57 Toprol Xl - PO 25 mg BID MARIELLE Administration Nifedipine 60 mg 07/28/16 10:00 07/31/16 09:57 Procardia Xl - PO 60 mg DAILY MARIELLE Administration Ondansetron HCl 4 mg 07/27/16 10:44 Zofran Injection IVPB Q6H PRN NAUSEA CBC, BMP 07/31/16 05:35 07/31/16 05:35 ekg #1: NSR with APCs; normal axis/interv; no path q's; nonsp ST-T inferior leads ekg #2 (07/28): NSR with APCs telemetry: sr Echo 07/27/16: nl LV/EF; nl RV; mild LAE/PIPE; mild TR; peak RVSP 58; trivial peric eff not hemody significant Assessment/Plan sob, PND: -suspect sx's may have correlated with episodes of rapid atrial arrhythmia/AF ( with assctd internal tremulousness as well) -no chf findings on CXR or CT chest here -highly unlikely that moderately elevated pulm pressure would cause this, if not acutely elevated (which it likely is not here, since no PE found and since RV is not dilated) -sx's could be explained by BONILLA, which could also explain the pulm HTN--rec sleep study as outpt -no isch ecg findings and serial trop neg x 3--stress testing not indicated for this sx, though should consider if she develops activity intolerance or exertional sob parox AF, MAT: -tele mostly sinus with APCs and one episode of suspected MAT; -however there appears to be paroxysmal afib as well -started on AC here for DVT -given CHADS VASC is 4, with approx 4%/year CVA risk (which is > expected bleeding risk from AC), would rec indefinite AC for cva prophylaxis--would start NOAC on discharge which is also indicated for DVT tx (xarelto, e.g.) -cont toprol 25 bid -tele has remained in SR w/o sig svt>24 hrs, can dc tele now tremulousness: -no obvious cardiac etiology LE DVT: -AC per pmd -? hypercoag w/u indicated--defer to dr be HTN: -bp controlled here -changed bisoprolol-HCT to metoprolol for PAF control HPL: -cont outpt med regimen dizzy/poor balance: -orthostatics normal here -neck ct showing large parotid mass. onc following.
--- NOTE | 2016-07-31 11:55 | PN ---
Progress Note (short form) - Note Progress Note: Radiation Oncology Pt seen/examined, chart/films reviewed, full consult dictated. 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 Will need biopsy for diagnosis. Agree w ENT/head and neck surgery consult. MRI neck w contrast to also r/o auditory canal/VIIIth nerve involvement. Consider neurology consult for ataxia/balance issues. Further mgt rec will follow once tissue dx is made.
--- NOTE | 2016-07-31 12:20 | CONSULT ---
Consult - text type - Consultation Consultation Note: Patient seen and examined. 89 y/o highly functional woman admitted for weakness/dyspnea found to have atrial fibrillation and placed on oxygen and anticoagulation. Has had a left parotid mass for the last two years which has grown steadily. No facial weakness, no difficulty chewing or eating. PMH: DVT. SH: ex-smoker quit at age 32. Exam: well-appearing elderly woman in no distress. 4 cm left parotid mass, firm , not very mobile but not completely fixed. no facial nerve weakness. No oral cavity mass, edentulous. No neck or axillary adenopathy. Neck/Face CT reviewed. Large solid mass of the left parotid. 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 I recommend fine needle aspiration biopsy. No need to stop anticoagulation for this. Regardless of result would recommend parotidectomy with facial nerve dissection if and when medically cleared. Explained to the patient risks and benefits of this procedure including facial weakness. She understands and will consider proceeding but wants the biopsy first. Given my card and asked to follow up with me if she is discharged from the hospital. this operation does not necessarily need to be done on this admission but she can see me in my [facility] office and be scheduled. Any questions [phone]. Thank you. Rafael Dumont MD
--- NOTE | 2016-07-31 12:32 | PN ---
Progress Note, Physician Chief Complaint: Ms Stallings still with loss of balance. No cp, sob, n/v. - Current Medication List Current Medications: Active Medications Acetaminophen (Tylenol -) 650 mg PO Q4H PRN PRN Reason: FEVER OR PAIN Atorvastatin Calcium (Lipitor -) 40 mg PO HS [facility] Last Admin: 07/30/16 23:04 Dose: 40 mg Docusate Sodium (Colace -) 100 mg PO BID [facility] Last Admin: 07/31/16 09:58 Dose: Not Given Enalapril Maleate (Vasotec -) 20 mg PO BID [facility] Last Admin: 07/31/16 09:58 Dose: 20 mg Enoxaparin Sodium (Lovenox -) 70 mg SQ BID [facility] Last Admin: 07/31/16 09:58 Dose: 70 mg Metoprolol Succinate (Toprol Xl -) 25 mg PO BID [facility] Last Admin: 07/31/16 09:57 Dose: 25 mg Nifedipine (Procardia Xl -) 60 mg PO DAILY [facility] Last Admin: 07/31/16 09:57 Dose: 60 mg Ondansetron HCl (Zofran Injection) 4 mg IVPB Q6H PRN PRN Reason: NAUSEA - Objective Vital Signs: Vital Signs Temperature 97.9 F 07/31/16 02:00 Pulse Rate 67 07/31/16 06:00 Respiratory Rate 20 07/31/16 06:00 Blood Pressure 121/57 07/31/16 06:00 O2 Sat by Pulse Oximetry (%) 96 07/30/16 21:00 Constitutional: Yes: Well Nourished, No Distress, Calm HENT: Yes: Other (L sided facial mass) Cardiovascular: Yes: Regular Rate and Rhythm. No: Gallop, Murmur, Rub Respiratory: Yes: Regular, CTA Bilaterally. No: Rales, Rhonchi, Wheezes Gastrointestinal: Yes: Normal Bowel Sounds, Soft. No: Distention, Tenderness Extremities: Yes: WNL Edema: No Labs: CBC, BMP 07/31/16 05:35 07/31/16 05:35 INR, PTT INR 1.06 (0.82-1.09) 07/31/16 05:35 Problem List - Problems (1) Dyspnea on exertion Code(s): R06.09 - OTHER FORMS OF DYSPNEA (2) Muscle tremor Code(s): R25.1 - TREMOR, UNSPECIFIED (3) HTN (hypertension) Code(s): I10 - ESSENTIAL (PRIMARY) HYPERTENSION (4) HLD (hyperlipidemia) Code(s): E78.5 - HYPERLIPIDEMIA, UNSPECIFIED (5) Edema Code(s): R60.9 - EDEMA, UNSPECIFIED (6) Mass Code(s): R22.9 - LOCALIZED SWELLING, MASS AND LUMP, UNSPECIFIED (7) DVT (deep venous thrombosis) Code(s): I82.409 - ACUTE EMBOLISM AND THOMBOS UNSP DEEP VN UNSP LOWER EXTREMITY (8) Tachycardia Code(s): R00.0 - TACHYCARDIA, UNSPECIFIED Assessment/Plan (1) DVT Assessment/Plan: -no PE -continue lovenox currently -plan to change to xarelto on discharge (2) Atrial fibrillation Assessment/Plan: -cardiology following and appreciate assistance -found to have atrial fibrillation -will benefit from manager terminal anticoagulation -continue toprol xl (3) HTN (hypertension) Assessment/Plan: -controlled -continue home regimen Code(s): I10 - ESSENTIAL (PRIMARY) HYPERTENSION (4) HLD (hyperlipidemia) Assessment/Plan: -continue statin Code(s): E78.5 - HYPERLIPIDEMIA, UNSPECIFIED (5) Mass Assessment/Plan: -concerning for parotid malignancy -appreciate oncology, radiation oncology, and ENT assistance -planning for biopsy on Wednesday -will need to hold wednesday night lovenox Code(s): R22.9 - LOCALIZED SWELLING, MASS AND LUMP, UNSPECIFIED (6) Lightheadedness -monitor, not improving -? if secondary to mass
--- NOTE | 2016-07-31 13:30 | CONS ---
DATE OF CONSULTATION: 07/31/2016 REFERRING PHYSICIAN: Mercedes Hayward MD REASON FOR CONSULTATION: Left parotid mass. HISTORY OF PRESENT ILLNESS: The patient is an 89-year-old woman with a history of whole body tremors that awoke her in her sleep. She has had a slowly enlarging painless left neck mass for the past 2 years and avoided workup due to fear of diagnosis. She reports no swallowing, chewing, or hearing difficulties. She does have dizziness associated with gait unsteadiness and imbalance. On admission, she was noted to have a right lower extremity DVT on ultrasound. CT angiogram failed to show pulmonary embolism, pulmonary mass, or mediastinal lymphadenopathy. A CT of the head and facial bones showed a 5.3-cm left parotid soft tissue mass with patent airway and no airway narrowing. Now asked to evaluate for further management. There is no history of prior radiotherapy or collagen vascular disease. PAST MEDICAL HISTORY: Hyperlipidemia, hypertension, lower extremity DVT, paroxysmal atrial fibrillation recently diagnosed. ALLERGIES: No known drug allergies. CURRENT MEDICATIONS: Vasotec, Lovenox subcutaneous, Toprol XL, Colace, Procardia XL, Lipitor. SOCIAL HISTORY: She is unmarried. She has no children. 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 She has a remote smoking history and consumes alcoholic beverages on social occasions. FAMILY HISTORY: Denies any malignancy. REVIEW OF SYSTEMS: No nausea, vomiting, visual changes, cough, or chest pain. There is no leg pain. No recent fevers or chills. PHYSICAL EXAMINATION General: She appears well, in no acute distress, lying in a hospital bed. She is a female appearing her chronological age. Vital signs: Temperature 97.9, pulse 63, blood pressure 120/55, respiratory rate 20. HEENT: Normocephalic and atraumatic. Moist mucous membranes. Anicteric sclerae. Clear oral cavity. Large 5-cm firm, nontender preauricular mass extending to the left neck. No appreciable submandibular or right neck adenopathy. Trachea is midline. No supraclavicular adenopathy. Chest: No wheezes, rales, or rhonchi. Cardiovascular: Regular. Abdomen: Soft, nontender, nondistended. Extremities: Normal range of motion. Musculoskeletal: No spine or CVA tenderness. Neurologic: Grossly nonfocal. Gait was not tested as she has unsteadiness and balance issues. Coordination [id number] and [id number] are within normal limits. RADIOLOGIC DATA: Ultrasound of the lower extremity, CT angiogram, CT head and facial bones as noted previously. LABORATORY DATA: WBC 8.5, hemoglobin 10.6, platelet count 219,000. Electrolytes within normal limits, BUN 10, creatinine 1.1, calcium 8.2, alkaline phosphatase 150, albumin 3.2. 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 She will need a biopsy for diagnosis. I agree with ENT/head and neck surgery consult and MRI of the neck with contrast to rule out auditory canal and 8th cranial nerve involvement given her balance issues. I would also consider a neurology consult for the same. Further recommendations will follow once the tissue diagnosis is obtained. Thank you for asking me to see this patient. ABRAHAM RUBIO M.D. [id number] MTDD
--- NOTE | 2016-07-31 17:23 | PN ---
Progress Note (short form) - Note Progress Note: PAtient seen and examined still with unsteady gait Last Vital Signs Temp Pulse Resp BP Pulse Ox 98.4 F 62 20 120/54 96 07/31/16 14:26 07/31/16 14:26 07/31/16 14:26 07/31/16 14:07/30/16 21:00 HEENT: DAMASO, EOM Intact Oropharynx: No thrush, No mucositis Cor: RSR, No murmurs, No gallops Lungs: Clear to P&A Abd: Soft, Normal bowel sounds, No organomegaly Ext:No significant edema Skin: No rashes, Integument intact Abnormal Lab Results 07/31/16 07/31/16 07/31/16 05:35 05:35 05:35 Hgb 10.6 L MCV 79.4 L MCHC 31.6 L RDW 17.3 H PTT (Actin FS) 41.5 H Chloride 108 H Creatinine 1.1 H Calcium 8.2 L Current Medications Acetaminophen (Tylenol -) 650 mg PO Q4H PRN PRN Reason: FEVER OR PAIN Atorvastatin Calcium (Lipitor -) 40 mg PO HS [facility] Last Admin: 07/30/16 23:04 Dose: 40 mg Docusate Sodium (Colace -) 100 mg PO BID [facility] Last Admin: 07/31/16 09:58 Dose: Not Given Enalapril Maleate (Vasotec -) 20 mg PO BID [facility] Last Admin: 07/31/16 09:58 Dose: 20 mg Enoxaparin Sodium (Lovenox -) 70 mg SQ BID [facility] Last Admin: 07/31/16 09:58 Dose: 70 mg Metoprolol Succinate (Toprol Xl -) 25 mg PO BID [facility] Last Admin: 07/31/16 09:57 Dose: 25 mg Nifedipine (Procardia Xl -) 60 mg PO DAILY [facility] Last Admin: 07/31/16 09:57 Dose: 60 mg Ondansetron HCl (Zofran Injection) 4 mg IVPB Q6H PRN PRN Reason: NAUSEA A/P 89 y/o patient presents with tremulous feeling in throat , whole gait unsteadiness, dizziness, Lt. parotid mass. Noted to have afib. 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 Did not get w/u as she was scared. 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 atrophy, ventricular dilatation and large Lt. parotid mass CT angio chest --no PE will get MRI face/neck and MRI IAC to r/o extension of tumor Will consult neurology regarding unsteadiness of gait will need FNA/core bx of lesion discussed with Dr. Dumont --patient to f/u outpatient with him for considerationof resection Rad-onc input appreciated RLE post. tibial DVT--on lovenox check PT/PTT to consider xeralto for afib/DVT once Lt. parotid tumor management decided
[2016-07-31] MEDS: ATORVASTATIN CA 40 MG TABLET (FP) PO SCH (22:30)
[2016-08-01 06:07] LABS: SERUM IRON 35 ug/dL (27-139); TOTAL IRON BINDING CAPACITY 201 ug/dL (250-450); UIBC 166 ug/dL (118-369)
[2016-08-01 06:56] LABS: BASOPHIL 0.8 % (0-2.0); EOSINOPHIL 3.7 % (0-4.5); MCH 25.1 pg (25.7-33.7); MCHC 31.7 g/dl (32.0-36.0); MEAN CELL VOLUME 79.2 fl (80-96); MEAN PLT VOLUME 10.2 fl (7.5-11.1); NEUTROPHILS 59.3 % (42.8-82.8); PLATELET COUNT 237 K/MM3 (134-434); RDW 17.3 % (11.6-15.6); WHITE BLOOD COUNT 5.5 K/mm3 (4.0-10.0)
[2016-08-01 07:48] LABS: CALCIUM 8.1 mg/dL (8.5-10.1); CREATININE 1.1 mg/dL (0.55-1.02); MAGNESIUM 1.9 mg/dL (1.8-2.4)
--- NOTE | 2016-08-01 08:54 | PN ---
Progress Note, Physician Chief Complaint: afib History of Present Illness: no sob or pnd; no palpitations or cp; still feels weak and ? dizzy--cannot walk at all; still feels trembling internally frequently, milder than before but still there - Current Medication List Current Medications: Active Medications Acetaminophen (Tylenol -) 650 mg PO Q4H PRN PRN Reason: FEVER OR PAIN Atorvastatin Calcium (Lipitor -) 40 mg PO HS [facility] Last Admin: 07/31/16 22:30 Dose: 40 mg Docusate Sodium (Colace -) 100 mg PO BID [facility] Last Admin: 07/31/16 22:30 Dose: 100 mg Enalapril Maleate (Vasotec -) 20 mg PO BID [facility] Last Admin: 07/31/16 22:30 Dose: 20 mg Enoxaparin Sodium (Lovenox -) 70 mg SQ BID [facility] Last Admin: 07/31/16 22:31 Dose: 70 mg Metoprolol Succinate (Toprol Xl -) 25 mg PO BID [facility] Last Admin: 07/31/16 22:30 Dose: 25 mg Nifedipine (Procardia Xl -) 60 mg PO DAILY [facility] Last Admin: 07/31/16 09:57 Dose: 60 mg Ondansetron HCl (Zofran Injection) 4 mg IVPB Q6H PRN PRN Reason: NAUSEA - Objective Vital Signs: Vital Signs Temperature 97.0 F L 07/31/16 21:04 Pulse Rate 62 08/01/16 06:00 Respiratory Rate 20 08/01/16 06:00 Blood Pressure 123/60 08/01/16 06:00 O2 Sat by Pulse Oximetry (%) 95 07/31/16 21:00 Constitutional: Yes: Well Nourished, No Distress, Calm Cardiovascular: Yes: Regular Rate and Rhythm, S1, S2. No: Gallop, Murmur Respiratory: Yes: Regular, CTA Bilaterally. No: Accessory Muscle Use, Wheezes Extremities: No: Cold Edema: No Neurological: Yes: Alert, Oriented Psychiatric: No: Agitated Labs: CBC, BMP 08/01/16 05:35 08/01/16 05:35 INR, PTT INR 1.06 (0.82-1.09) 07/31/16 05:35 - ....Imaging EKG: Other (tele: NSR) Assessment/Plan Echo 07/27/16: nl LV/EF; nl RV; mild LAE/PIPE; mild TR; peak RVSP 58; trivial peric eff not hemody significant Assessment/Plan sob, PND: -sx's may have correlated with episodes of rapid atrial arrhythmia/AF (with assctd internal tremulousness as well) -no chf findings on CXR or CT chest here -highly unlikely that moderately elevated pulm pressure would cause this, if not acutely elevated (no PE on CTA, and RV not dilated) -sx's could be explained by BONILLA, which could also explain the pulm HTN--rec sleep study as outpt once more acute issues are dealt with -defer ischemia eval, per prior notes parox AF, MAT: -tele with suspected MAT; -however there appeared to be paroxysmal afib as well (this is clearly not the cause of her vague internal tremulousness, as this sx persists despite no AF on monitor -started on AC here for DVT -given CHADS VASC is 4, with approx 4%/year CVA risk (which is > expected bleeding risk from AC), would rec indefinite AC for cva prophylaxis -cont lovenox for now until definitely not in need of invasive biopsies/ surgical resection -plan is to change to NOAC that has DVT indication as well on discharge ( xarelto or eliquis) -cont toprol 25 bid -tele continues to show sinus rhythm for 48 hrs or more LE DVT: -AC per pmd -? hypercoag w/u indicated--defer to dr be parotid mass: -seen by onc, rad-onc, and head/neck surgery--for outpt biopsy +/- resection HTN: -bp controlled here -changed bisoprolol-HCT to metoprolol for PAF control HPL: -cont outpt med regimen dizzy/poor balance: -orthostatics normal here -neck ct showing large parotid mass, neuro consulted per Onc recs NO ONGOING INDICATION FOR TELE--D/C
[2016-08-01] MEDS: ENALAPRIL MALEATE 10 MG TABLET (FP) PO SCH ×2 (10:10→21:59)
[2016-08-01] MEDS: METOPROLOL SUCCINATE 25 MG TAB.SR.24H (FP) PO SCH ×2 (10:11→21:59)
[2016-08-01] MEDS: DOCUSATE SODIUM 100 MG CAPSULE (FP) PO SCH ×2 (10:11→21:59)
[2016-08-01] MEDS: ENOXAPARIN NA (PORCINE) 80 MG/0.8 ML DISP.SYRIN SQ SCH ×2 (10:11→22:27)
[2016-08-01] MEDS: NIFEdipine E.R 60 MG TABLET (UD) PO SCH (10:11)
--- NOTE | 2016-08-01 11:30 | CONSULT ---
Consult Consult Specialty:: Neurology Reason for Consultation:: weakness, unsteady gait - History of Present Illness History of Present Illness: 89 year old woman with historyof left parotid mass, hypertension, hyperlipidemia , presents with complaints of lightheadedness, whole body tremor, and unsteady gait ongoing for one to two months. CT head revealed moderate atrophy with a left parotid mass which is currently being investigated. Neurology called for evaluation of above symptoms. Patient reports whole body, pulsating tremor, no tremor noted on exam. Regarding dizziness, denies vertigo but reports lightheadedness and also reports "weak all over." States when trying to walk she is unable to do so. - Past Medical History Cardio/Vascular: Yes: HTN, Hyperlipdemia - Past Surgical History Past Surgical History: Yes: None - Alcohol/Substance Use Hx Alcohol Use: No History of Substance Use: reports: None - Smoking History Smoking history: Never smoked - Social History ADL: Independent History of Recent Travel: No Home Medications - Allergies Allergies/Adverse Reactions: Allergies Allergy/AdvReac Type Severity Reaction Status Date / Time No Known Allergies Allergy Verified 07/27/16 06:32 - Home Medications Home Medications: Ambulatory Orders Atorvastatin Ca [Lipitor] 40 mg PO DAILY 07/27/16 Bisoprolol Fumarate/Hctz [Bisoprolol-Hctz 10-6.25 mg Tab] 1 each PO DAILY Enalapril Maleate [Vasotec] 20 mg PO BID 07/27/16 Nifedipine ER [Procardia Xl -] 60 mg PO DAILY 07/27/16 Review of Systems - Review of Systems Constitutional: reports: Weakness Eyes: reports: No Symptoms Neurological: reports: Unsteady Gait, Weakness Physical Exam Vital Signs: Vital Signs Temperature 97.0 F L 07/31/16 21:04 Pulse Rate 62 08/01/16 06:00 Respiratory Rate 20 08/01/16 06:00 Blood Pressure 123/60 08/01/16 06:00 O2 Sat by Pulse Oximetry (%) 95 07/31/16 21:00 Constitutional: Yes: Well Nourished, No Distress, Other Eyes: Yes: Conjunctiva Clear HENT: Yes: Atraumatic, Normocephalic Cardiovascular: Yes: S1, S2 Respiratory: Yes: Regular Neurological: Yes: Alert, Oriented, Cran Nerves II-XII Intact, Other (moving all extremities equally against gravity without obvious focality, bilateral lower extremities 4/5 hip flexion) Labs: CBC, BMP 08/01/16 05:35 08/01/16 05:35 Problem List - Problems (1) Dyspnea on exertion Code(s): R06.09 - OTHER FORMS OF DYSPNEA (2) Edema Code(s): R60.9 - EDEMA, UNSPECIFIED (3) Mass Code(s): R22.9 - LOCALIZED SWELLING, MASS AND LUMP, UNSPECIFIED Assessment/Plan 89 year old woman with historyof left parotid mass, hypertension, hyperlipidemia , presents with complaints of lightheadedness, whole body tremor, and unsteady gait ongoing for one to two months. CT head revealed moderate atrophy with a left parotid mass which is currently being investigated. Neurology called for evaluation of above symptoms. Patient reports whole body, pulsating tremor, no tremor noted on exam. Regarding dizziness, denies vertigo but reports lightheadedness and also reports "weak all over." States when trying to walk she is unable to do so. Recommend Orthostatics negative MRI brain without contrast Physical therapy
--- NOTE | 2016-08-01 12:58 | PN ---
Progress Note (short form) - Note Progress Note: No SOB No chest pain Fatigue O/E Heart regular Lungs clear Abd soft Ext no edema Vital Signs Period Temp Pulse Resp BP Sys/Galvez Pulse Ox Last 24 Hr 97.0 F-98.4 F 62-72 19-20 120-135/54-74 93-95 Current Medications Acetaminophen (Tylenol -) 650 mg PO Q4H PRN PRN Reason: FEVER OR PAIN Atorvastatin Calcium (Lipitor -) 40 mg PO HS [facility] Last Admin: 07/31/16 22:30 Dose: 40 mg Docusate Sodium (Colace -) 100 mg PO BID [facility] Last Admin: 08/01/16 10:11 Dose: 100 mg Enalapril Maleate (Vasotec -) 20 mg PO BID [facility] Last Admin: 08/01/16 10:10 Dose: 20 mg Enoxaparin Sodium (Lovenox -) 70 mg SQ BID [facility] Last Admin: 08/01/16 10:11 Dose: 70 mg Metoprolol Succinate (Toprol Xl -) 25 mg PO BID [facility] Last Admin: 08/01/16 10:11 Dose: 25 mg Nifedipine (Procardia Xl -) 60 mg PO DAILY [facility] Last Admin: 08/01/16 10:11 Dose: 60 mg Ondansetron HCl (Zofran Injection) 4 mg IVPB Q6H PRN PRN Reason: NAUSEA Laboratory Results - last 24 hr 07/31/16 08/01/16 08/01/16 05:35 05:35 05:35 WBC 5.5 D RBC 4.31 Hgb 10.8 Hct 34.1 MCV 79.2 L MCHC 31.7 L RDW 17.3 H Plt Count 237 MPV 10.2 Neutrophils % 59.3 Lymphocytes % 25.9 D Monocytes % 10.3 H Eosinophils % 3.7 D Basophils % 0.8 Sodium 144 Potassium 3.9 Chloride 106 Carbon Dioxide 28 Anion Gap 10 BUN 14 D Creatinine 1.1 H Random Glucose 86 Calcium 8.1 L Phosphorus 3.0 Magnesium 1.9 Iron 35 TIBC 201 L Iron Saturation 17 Assessment/Plan (1) DVT Assessment/Plan: -no PE Change to Eliquis fter Biopsy (2) Atrial fibrillation Assessment/Plan: as above) Assessment/Plan: -controlled -continue home regimen Code(s): I10 - ESSENTIAL (PRIMARY) HYPERTENSION (4) HLD (hyperlipidemia) Assessment/Plan: -continue statin Code(s): E78.5 - HYPERLIPIDEMIA, UNSPECIFIED (5) Mass Assessment/Plan: -planning for biopsy on Wednesday -will need to hold wednesday night lovenox Code(s): R22.9 - LOCALIZED SWELLING, MASS AND LUMP, UNSPECIFIED
[2016-08-01] MEDS: ATORVASTATIN CA 40 MG TABLET (FP) PO SCH (21:59)
[2016-08-02] MEDS: ENOXAPARIN NA (PORCINE) 80 MG/0.8 ML DISP.SYRIN SQ SCH ×2 (09:18→21:55)
[2016-08-02] MEDS: NIFEdipine E.R 60 MG TABLET (UD) PO SCH (09:18)
[2016-08-02] MEDS: DOCUSATE SODIUM 100 MG CAPSULE (FP) PO SCH ×2 (09:18→21:59)
[2016-08-02] MEDS: METOPROLOL SUCCINATE 25 MG TAB.SR.24H (FP) PO SCH ×2 (09:19→21:59)
[2016-08-02] MEDS: ENALAPRIL MALEATE 10 MG TABLET (FP) PO SCH ×2 (09:19→21:59)
--- NOTE | 2016-08-02 09:35 | PN ---
Progress Note (short form) - Note Progress Note: s: no cp palps sob; +dizzy/balance/weakness issues when walking o: Vital Signs Period Temp Pulse Resp BP Sys/Galvez Pulse Ox Last 24 Hr 97.8 F-98.3 F 60-70 18-20 120-139/53-74 91-94 Constitutional: Yes: Well Nourished, No Distress Eyes: No: Sclera Icterus Respiratory: Yes: CTA Bilaterally. No: Accessory Muscle Use, Rales, Wheezes Gastrointestinal: Yes: Normal Bowel Sounds. No: Distention, Hepatomegaly, Palpable Mass, Tenderness Cardiovascular: Yes: Regular Rate and Rhythm JVD: No Heart Sounds: Yes: S1, S2. No: Gallop Murmur: No: Systolic Murmur, Diastolic Murmur Extremities: No: Cold, Cyanosis Edema: No Integumentary: No: Jaundice Neurological: Yes: Alert, Oriented (x3) Psychiatric: No: Agitated Current Medications Generic Name Dose Route Start Last Admin Trade Name Freq PRN Reason Stop Dose Admin Acetaminophen 650 mg 07/27/16 10:44 Tylenol - PO Q4H PRN FEVER OR PAIN Atorvastatin Calcium 40 mg 07/28/16 22:00 08/01/16 21:59 Lipitor - PO 40 mg HS MARIELLE Administration Docusate Sodium 100 mg 07/27/16 22:00 08/02/16 09:18 Colace - PO 100 mg BID MARIELLE Administration Enalapril Maleate 20 mg 07/27/16 22:00 08/02/16 09:19 Vasotec - PO 20 mg BID MARIELLE Administration Enoxaparin Sodium 70 mg 07/28/16 12:45 08/02/16 09:18 Lovenox - SQ 70 mg BID MARIELLE Administration Metoprolol Succinate 25 mg 07/28/16 22:00 08/02/16 09:19 Toprol Xl - PO 25 mg BID MARIELLE Administration Nifedipine 60 mg 07/28/16 10:00 08/02/16 09:18 Procardia Xl - PO 60 mg DAILY MARIELLE Administration Ondansetron HCl 4 mg 07/27/16 10:44 Zofran Injection IVPB Q6H PRN NAUSEA CBC, BMP 08/01/16 05:35 08/01/16 05:35 ekg #1: NSR with APCs; normal axis/interv; no path q's; nonsp ST-T inferior leads ekg #2 (07/28): NSR with APCs Echo 07/27/16: nl LV/EF; nl RV; mild LAE/PIPE; mild TR; peak RVSP 58; trivial peric eff not hemody significant Assessment/Plan sob, PND: -suspect sx's may have correlated with episodes of rapid atrial arrhythmia/AF ( with assctd internal tremulousness as well) -no chf findings on CXR or CT chest here -highly unlikely that moderately elevated pulm pressure would cause this, if not acutely elevated (which it likely is not here, since no PE found and since RV is not dilated) -sx's could be explained by BONILLA, which could also explain the pulm HTN--rec sleep study as outpt -no isch ecg findings and serial trop neg x 3--stress testing not indicated for this sx, though should consider if she develops activity intolerance or exertional sob parox AF, MAT: -tele mostly sinus with APCs and one episode of suspected MAT; -however there appears to be paroxysmal afib as well -started on AC here for DVT -given CHADS VASC is 4, with approx 4%/year CVA risk (which is > expected bleeding risk from AC), would rec indefinite AC for cva prophylaxis--would start NOAC on discharge which is also indicated for DVT tx (xarelto, e.g.) -for now on lovenix in case biopsy planned for parotid mass -cont toprol 25 bid tremulousness: -no obvious cardiac etiology LE DVT: -AC per pmd HTN: -bp controlled here -changed bisoprolol-HCT to metoprolol for PAF control HPL: -cont outpt med regimen dizzy/poor balance: -orthostatics normal here -neck ct showing large parotid mass. onc, neuro following.
--- NOTE | 2016-08-02 13:40 | PN ---
Progress Note (short form) - Note Progress Note: C/o weakness in the leg and inability to walk O/E Heart regular Lungs clear Abd soft Ext no edema Vital Signs Period Temp Pulse Resp BP Sys/Galvez Pulse Ox Last 24 Hr 97.8 F-98.3 F 60-69 18-18 124-139/53-65 91-94 Current Medications Acetaminophen (Tylenol -) 650 mg PO Q4H PRN PRN Reason: FEVER OR PAIN Atorvastatin Calcium (Lipitor -) 40 mg PO HS [facility] Last Admin: 08/01/16 21:59 Dose: 40 mg Docusate Sodium (Colace -) 100 mg PO BID [facility] Last Admin: 08/02/16 09:18 Dose: 100 mg Enalapril Maleate (Vasotec -) 20 mg PO BID [facility] Last Admin: 08/02/16 09:19 Dose: 20 mg Enoxaparin Sodium (Lovenox -) 70 mg SQ BID [facility] Last Admin: 08/02/16 09:18 Dose: 70 mg Metoprolol Succinate (Toprol Xl -) 25 mg PO BID [facility] Last Admin: 08/02/16 09:19 Dose: 25 mg Nifedipine (Procardia Xl -) 60 mg PO DAILY [facility] Last Admin: 08/02/16 09:18 Dose: 60 mg Ondansetron HCl (Zofran Injection) 4 mg IVPB Q6H PRN PRN Reason: NAUSEA Vital Signs Temp 98.3 F 08/02/16 09:13 Pulse 62 08/02/16 09:13 Resp 18 08/02/16 09:13 BP 136/59 08/02/16 09:13 Pulse Ox 94 L 08/02/16 06:00 Intake & Output 08/01/16 08/02/16 08/02/16 23:59 11:59 23:59 Intake Total 300 150 Balance 300 150 Intake: Oral 300 150 Other: Voiding Method Bedside Commode Bedside Commode # Unmeasured Voids Void 1 1 Bowel Movement Yes No # Bowel Movements 1 Assessment/Plan (1) DVT Assessment/Plan: -no PE Change to Eliquis fter Biopsy (2) Atrial fibrillation Assessment/Plan: as above) Assessment/Plan: -controlled -continue home regimen Code(s): I10 - ESSENTIAL (PRIMARY) HYPERTENSION (4) HLD (hyperlipidemia) Assessment/Plan: -continue statin Code(s): E78.5 - HYPERLIPIDEMIA, UNSPECIFIED (5) Mass Assessment/Plan: -planning for biopsy on Wednesday -will need to hold wednesday night [facility] Code(s): R22.9 - LOCALIZED SWELLING, MASS AND LUMP, UNSPECIFIED Weakness OOB abd PT
[2016-08-02] MEDS: ATORVASTATIN CA 40 MG TABLET (FP) PO SCH (21:59)
--- NOTE | 2016-08-03 08:57 | PN ---
Progress Note, Physician Chief Complaint: afib History of Present Illness: denies sob, incl with O2 off. no palpitations, cp. still cannot walk (weak/dizzy) - Current Medication List Current Medications: Active Medications Acetaminophen (Tylenol -) 650 mg PO Q4H PRN PRN Reason: FEVER OR PAIN Atorvastatin Calcium (Lipitor -) 40 mg PO HS [facility] Last Admin: 08/02/16 21:59 Dose: 40 mg Docusate Sodium (Colace -) 100 mg PO BID [facility] Last Admin: 08/02/16 21:59 Dose: 100 mg Enalapril Maleate (Vasotec -) 20 mg PO BID [facility] Last Admin: 08/02/16 21:59 Dose: 20 mg Enoxaparin Sodium (Lovenox -) 70 mg SQ BID [facility] Last Admin: 08/02/16 21:55 Dose: Not Given Metoprolol Succinate (Toprol Xl -) 25 mg PO BID [facility] Last Admin: 08/02/16 21:59 Dose: 25 mg Nifedipine (Procardia Xl -) 60 mg PO DAILY [facility] Last Admin: 08/02/16 09:18 Dose: 60 mg Ondansetron HCl (Zofran Injection) 4 mg IVPB Q6H PRN PRN Reason: NAUSEA - Objective Vital Signs: Vital Signs Temperature 97.9 F 08/03/16 05:37 Pulse Rate 62 08/03/16 05:37 Respiratory Rate 18 08/03/16 05:47 Blood Pressure 137/63 08/03/16 05:37 O2 Sat by Pulse Oximetry (%) 95 08/03/16 05:47 Constitutional: Yes: Well Nourished, No Distress, Calm Cardiovascular: Yes: Regular Rate and Rhythm, S1, S2. No: Gallop, Murmur Respiratory: Yes: Regular, CTA Bilaterally. No: Accessory Muscle Use, Rales, Wheezes Extremities: No: Cold Edema: No Neurological: Yes: Alert, Oriented Psychiatric: No: Agitated Labs: CBC, BMP 08/01/16 05:35 08/01/16 05:35 INR, PTT INR 1.06 (0.82-1.09) 07/31/16 05:35 Assessment/Plan Echo 07/27/16: nl LV/EF; nl RV; mild LAE/PIPE; mild TR; peak RVSP 58; trivial peric eff not hemody significant Assessment/Plan sob, PND: -suspect sx's may have correlated with episodes of rapid atrial arrhythmia/AF ( with assctd internal tremulousness as well) -no chf findings on CXR or CT chest here -highly unlikely that moderately elevated pulm pressure would cause this, if not acutely elevated (which it likely is not here, since no PE found and since RV is not dilated) -sx's could be explained by BONILLA, which could also explain the pulm HTN--rec sleep study as outpt -no isch ecg findings and serial trop neg x 3--stress testing not indicated for this sx, though should consider if she develops activity intolerance or exertional sob parox AF, MAT: -tele mostly sinus with APCs and one episode of suspected MAT; -however there appears to be paroxysmal afib as well -started on AC here for DVT -given CHADS VASC is 4, with approx 4%/year CVA risk (which is > expected bleeding risk from AC), would rec indefinite AC for cva prophylaxis -continuing lovenox in case biopsy planned for parotid mass--to start xarelto or eliquis when ready for d/c -cont toprol 25 bid tremulousness: -sx's persist in sinus rhythm, hence clearly unrelated to atrial arrhythmias -suspect anxiety LE DVT: -AC as disc'd, heme following (re: duration) HTN: -bp controlled here -changed bisoprolol-HCT to metoprolol for PAF control HPL: -cont outpt med regimen dizzy/poor balance: -orthostatics normal here -neck ct showing large parotid mass. onc, neuro following.
[2016-08-03] MEDS: NIFEdipine E.R 60 MG TABLET (UD) PO SCH (09:03)
[2016-08-03] MEDS: METOPROLOL SUCCINATE 25 MG TAB.SR.24H (FP) PO SCH ×2 (09:04→22:06)
[2016-08-03] MEDS: DOCUSATE SODIUM 100 MG CAPSULE (FP) PO SCH ×2 (09:04→22:06)
[2016-08-03] MEDS: ENALAPRIL MALEATE 10 MG TABLET (FP) PO SCH ×2 (09:09→22:06)
--- NOTE | 2016-08-03 10:54 | PN ---
Progress Note (short form) - Note Progress Note: Breathing feels OK. No CP or SOB. For possible biopsy today. Intake & Output 07/31/16 08/01/16 08/02/16 08/03/16 23:59 23:59 23:59 23:59 Intake Total 500 750 Balance 500 750 Last Vital Signs Temp Pulse Resp BP Pulse Ox 99.2 F 63 18 128/62 95 08/03/16 09:00 08/03/16 09:00 08/03/16 09:00 08/03/16 09:00 08/03/16 05:47 Active Medications Acetaminophen (Tylenol -) 650 mg PO Q4H PRN PRN Reason: FEVER OR PAIN Atorvastatin Calcium (Lipitor -) 40 mg PO HS [facility] Last Admin: 08/02/16 21:59 Dose: 40 mg Docusate Sodium (Colace -) 100 mg PO BID [facility] Last Admin: 08/03/16 09:04 Dose: 100 mg Enalapril Maleate (Vasotec -) 20 mg PO BID [facility] Last Admin: 08/03/16 09:09 Dose: 20 mg Enoxaparin Sodium (Lovenox -) 70 mg SQ BID [facility] Last Admin: 08/02/16 21:55 Dose: Not Given Metoprolol Succinate (Toprol Xl -) 25 mg PO BID [facility] Last Admin: 08/03/16 09:04 Dose: 25 mg Nifedipine (Procardia Xl -) 60 mg PO DAILY [facility] Last Admin: 08/03/16 09:03 Dose: 60 mg Ondansetron HCl (Zofran Injection) 4 mg IVPB Q6H PRN PRN Reason: NAUSEA Constitutional: Yes: Well Nourished, No Distress, Calm Eyes: Yes: Conjunctiva Clear, EOM Intact HENT: Yes: Atraumatic, Large non-tender mass left parotid area Neck: Yes: Supple, Trachea Midline Cardiovascular: Yes: Regular Rate and Rhythm Respiratory: Yes: CTA Bilaterally Gastrointestinal: Yes: Normal Bowel Sounds, Soft ...Rectal Exam: Yes: Deferred Renal/: Yes: WNL Breast(s): Yes: WNL Musculoskeletal: Yes: WNL Extremities: Yes: WNL Edema: No Peripheral Pulses WNL: Yes Integumentary: Yes: WNL Neurological: Yes: Alert, Oriented ...Motor Strength: WNL Psychiatric: Yes: WNL, Alert, Oriented Problem List - Problems (1) Muscle tremor Code(s): R25.1 - TREMOR, UNSPECIFIED (2) Hiatal hernia Code(s): K44.9 - DIAPHRAGMATIC HERNIA WITHOUT OBSTRUCTION OR GANGRENE (3) Mass Code(s): R22.9 - LOCALIZED SWELLING, MASS AND LUMP, UNSPECIFIED Assessment/Plan For possible biopsy of left parotid mass Can screen for OSAS as an outpatient O2 only as needed Incentive Spirometry VTE prophylaxis Dr Retana Problem List - Problems (1) Muscle tremor Code(s): R25.1 - TREMOR, UNSPECIFIED (2) Hiatal hernia Code(s): K44.9 - DIAPHRAGMATIC HERNIA WITHOUT OBSTRUCTION OR GANGRENE (3) Mass Code(s): R22.9 - LOCALIZED SWELLING, MASS AND LUMP, UNSPECIFIED
--- NOTE | 2016-08-03 11:38 | PN ---
Progress Note, Physician Chief Complaint: Ms Stallings mainly complains that she can't walk, but she says she walked with PT so suspect she means she still feels off balance and unsafe to ambulate alone. No cp, sob, n/v. - Current Medication List Current Medications: Active Medications Acetaminophen (Tylenol -) 650 mg PO Q4H PRN PRN Reason: FEVER OR PAIN Atorvastatin Calcium (Lipitor -) 40 mg PO HS [facility] Last Admin: 08/02/16 21:59 Dose: 40 mg Docusate Sodium (Colace -) 100 mg PO BID [facility] Last Admin: 08/03/16 09:04 Dose: 100 mg Enalapril Maleate (Vasotec -) 20 mg PO BID [facility] Last Admin: 08/03/16 09:09 Dose: 20 mg Metoprolol Succinate (Toprol Xl -) 25 mg PO BID [facility] Last Admin: 08/03/16 09:04 Dose: 25 mg Nifedipine (Procardia Xl -) 60 mg PO DAILY [facility] Last Admin: 08/03/16 09:03 Dose: 60 mg Ondansetron HCl (Zofran Injection) 4 mg IVPB Q6H PRN PRN Reason: NAUSEA - Objective Vital Signs: Vital Signs Temperature 99.2 F 08/03/16 09:00 Pulse Rate 63 08/03/16 09:00 Respiratory Rate 18 08/03/16 09:00 Blood Pressure 128/62 08/03/16 09:00 O2 Sat by Pulse Oximetry (%) 95 08/03/16 05:47 Constitutional: Yes: Well Nourished, No Distress, Calm HENT: Yes: Other (L sided mass) Cardiovascular: Yes: Regular Rate and Rhythm. No: Gallop, Murmur, Rub Respiratory: Yes: Regular, CTA Bilaterally. No: Rales, Rhonchi, Wheezes Gastrointestinal: Yes: Normal Bowel Sounds, Soft. No: Distention, Tenderness Extremities: Yes: WNL Edema: No Labs: CBC, BMP 08/01/16 05:35 08/01/16 05:35 INR, PTT INR 1.06 (0.82-1.09) 07/31/16 05:35 Problem List - Problems (1) Dyspnea on exertion Code(s): R06.09 - OTHER FORMS OF DYSPNEA (2) Muscle tremor Code(s): R25.1 - TREMOR, UNSPECIFIED (3) HTN (hypertension) Code(s): I10 - ESSENTIAL (PRIMARY) HYPERTENSION (4) HLD (hyperlipidemia) Code(s): E78.5 - HYPERLIPIDEMIA, UNSPECIFIED (5) Edema Code(s): R60.9 - EDEMA, UNSPECIFIED (6) Mass Code(s): R22.9 - LOCALIZED SWELLING, MASS AND LUMP, UNSPECIFIED (7) DVT (deep venous thrombosis) Code(s): I82.409 - ACUTE EMBOLISM AND THOMBOS UNSP DEEP VN UNSP LOWER EXTREMITY (8) Tachycardia Code(s): R00.0 - TACHYCARDIA, UNSPECIFIED Assessment/Plan (1) DVT Assessment/Plan: -no PE -continue lovenox currently -plan to change to xarelto on discharge (2) Atrial fibrillation Assessment/Plan: -cardiology following and appreciate assistance -found to have atrial fibrillation -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 if concerned to be home alone -will continue PT
--- NOTE | 2016-08-03 14:18 | PN ---
Progress Note (short form) - Note Progress Note: PAtient seen and examined still with unsteady gait Last Vital Signs Temp Pulse Resp BP Pulse Ox 99.2 F 63 18 128/62 96 08/03/16 09:00 08/03/16 09:00 08/03/16 09:00 08/03/16 09:00 08/03/16 10:00 HEENT: DAMASO, EOM Intact Left parotid mass Neck: Supple Cor: RSR, No murmurs, No gallops Lungs: Clear to P&A Abd: Soft, Normal bowel sounds, No organomegaly Labs reviewed Current Medications Acetaminophen (Tylenol -) 650 mg PO Q4H PRN PRN Reason: FEVER OR PAIN Atorvastatin Calcium (Lipitor -) 40 mg PO HS [facility] Last Admin: 08/02/16 21:59 Dose: 40 mg Docusate Sodium (Colace -) 100 mg PO BID [facility] Last Admin: 08/03/16 09:04 Dose: 100 mg Enalapril Maleate (Vasotec -) 20 mg PO BID [facility] Last Admin: 08/03/16 09:09 Dose: 20 mg Metoprolol Succinate (Toprol Xl -) 25 mg PO BID [facility] Last Admin: 08/03/16 09:04 Dose: 25 mg Nifedipine (Procardia Xl -) 60 mg PO DAILY [facility] Last Admin: 08/03/16 09:03 Dose: 60 mg Ondansetron HCl (Zofran Injection) 4 mg IVPB Q6H PRN PRN Reason: NAUSEA A/P 89 y/o patient presents with tremulous feeling in throat , whole gait unsteadiness, dizziness, Lt. parotid mass. Noted to have afib. 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 Did not get w/u as she was scared. 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 atrophy, ventricular dilatation and large Lt. parotid mass CT angio chest --no PE will get MRI face/neck and MRI IAC to r/o extension of tumor --- to f/u mri neurology consult noted -- to get MRI brain will need FNA/core bx of lesion discussed with Dr. Dumont --patient to f/u outpatient with him for consideration of resection Rad-onc input appreciated RLE post. tibial DVT--on lovenox to consider xeralto for afib/DVT once Lt. parotid tumor management decided
--- NOTE | 2016-08-03 15:48 | PN ---
Progress Note, Physician Chief Complaint: tremor inside the body - Current Medication List Current Medications: Active Medications Acetaminophen (Tylenol -) 650 mg PO Q4H PRN PRN Reason: FEVER OR PAIN Atorvastatin Calcium (Lipitor -) 40 mg PO HS [facility] Last Admin: 08/02/16 21:59 Dose: 40 mg Docusate Sodium (Colace -) 100 mg PO BID [facility] Last Admin: 08/03/16 09:04 Dose: 100 mg Enalapril Maleate (Vasotec -) 20 mg PO BID [facility] Last Admin: 08/03/16 09:09 Dose: 20 mg Metoprolol Succinate (Toprol Xl -) 25 mg PO BID [facility] Last Admin: 08/03/16 09:04 Dose: 25 mg Nifedipine (Procardia Xl -) 60 mg PO DAILY [facility] Last Admin: 08/03/16 09:03 Dose: 60 mg Ondansetron HCl (Zofran Injection) 4 mg IVPB Q6H PRN PRN Reason: NAUSEA - Objective Vital Signs: Vital Signs Temperature 98.3 F 08/03/16 14:50 Pulse Rate 73 08/03/16 14:50 Respiratory Rate 18 08/03/16 14:50 Blood Pressure 121/58 08/03/16 14:50 O2 Sat by Pulse Oximetry (%) 96 08/03/16 10:00 Constitutional: Yes: Well Nourished, No Distress, Calm, Other (large mass left mandibullary) Eyes: Yes: Conjunctiva Clear, EOM Intact, PERRL HENT: Yes: Atraumatic, Normocephalic Neck: Yes: Supple, Trachea Midline, Other (large mass 6/6/5cm. left mandibulla) Cardiovascular: Yes: Regular Rate and Rhythm, S1, S2 Respiratory: Yes: Regular, CTA Bilaterally Gastrointestinal: Yes: Normal Bowel Sounds, Soft Genitourinary: Yes: WNL Musculoskeletal: Yes: WNL Extremities: Yes: WNL Edema: No Peripheral Pulses WNL: Yes Peripheral Pulses: Left Radial: 1+, Right Radial: 1+ Neurological: Yes: WNL, Alert, Oriented, Babinski negative, Cran Nerves II-XII Intact ...Motor Strength: WNL Psychiatric: Yes: WNL, Alert, Oriented Labs: CBC, BMP 08/01/16 05:35 08/01/16 05:35 INR, PTT INR 1.06 (0.82-1.09) 07/31/16 05:35 - ....Imaging Cat Scan: Report Reviewed, Image Reviewed Problem List - Problems (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 CT head revealed moderate atrophy with a left parotid mass which is currently being investigated. The patient states she had this mass for the last two years and the mass increased over time. In the last two months she started to present internal tremor, dizziness, generalized weakness. Impression: left mandibulla, parotid gland mass, possible secretory hormones. Nonfocal neurological exam. No weakness. no aphasia. no dysarthria. no facial droop. Plan: - MRI brain to rule out stroke, ICP - consider endocrinology consult for checking hormonal production : TSH, PTH, ACTH, serotonin. - Holter 48h. - biopsy mass - follow up as outpatient for essential tremor in the Neurology office. Thank you for this consult.
[2016-08-03] MEDS ORDERED: ENOXAPARIN NA (PORCINE) 80 MG/0.8 ML DISP.SYRIN SQ ONE (18:00)
[2016-08-03] MEDS: ATORVASTATIN CA 40 MG TABLET (FP) PO SCH (22:06)
[2016-08-04 07:32] LABS: BASOPHIL 0.5 % (0-2.0); MCH 25.5 pg (25.7-33.7); MCHC 32.4 g/dl (32.0-36.0); MEAN CELL VOLUME 78.8 fl (80-96); MEAN PLT VOLUME 10.4 fl (7.5-11.1); NEUTROPHILS 57.6 % (42.8-82.8); PLATELET COUNT 174 K/MM3 (134-434); RDW 17.2 % (11.6-15.6); WHITE BLOOD COUNT 5.7 K/mm3 (4.0-10.0)
[2016-08-04 08:07] LABS: CALCIUM 7.9 mg/dL (8.5-10.1); MAGNESIUM 1.9 mg/dL (1.8-2.4); PHOSPHOROUS 3.1 mg/dL (2.5-4.9)
[2016-08-04] MEDS: ENOXAPARIN NA (PORCINE) 80 MG/0.8 ML DISP.SYRIN SQ SCH (08:08)
--- NOTE | 2016-08-04 10:10 | PN ---
Progress Note (short form) - Note Progress Note: Breathing feels OK. No CP or SOB. MRI noted. Intake & Output 08/01/16 08/02/16 08/03/16 08/04/16 23:59 23:59 23:59 23:59 Intake Total 500 750 200 0 Balance 500 750 200 0 Last Vital Signs Temp Pulse Resp BP Pulse Ox 98.6 F 62 20 154/70 95 08/04/16 09:14 08/04/16 09:14 08/04/16 09:14 08/04/16 09:14 08/04/16 06:39 Active Medications Acetaminophen (Tylenol -) 650 mg PO Q4H PRN PRN Reason: FEVER OR PAIN Atorvastatin Calcium (Lipitor -) 40 mg PO HS [facility] Last Admin: 08/03/16 22:06 Dose: 40 mg Docusate Sodium (Colace -) 100 mg PO BID [facility] Last Admin: 08/03/16 22:06 Dose: 100 mg Enalapril Maleate (Vasotec -) 20 mg PO BID [facility] Last Admin: 08/03/16 22:06 Dose: 20 mg Enoxaparin Sodium (Lovenox -) 70 mg SQ Q12H [facility] Metoprolol Succinate (Toprol Xl -) 25 mg PO BID [facility] Last Admin: 08/03/16 22:06 Dose: 25 mg Nifedipine (Procardia Xl -) 60 mg PO DAILY [facility] Last Admin: 08/03/16 09:03 Dose: 60 mg Ondansetron HCl (Zofran Injection) 4 mg IVPB Q6H PRN PRN Reason: NAUSEA Constitutional: Yes: Well Nourished, No Distress, Calm Eyes: Yes: Conjunctiva Clear, EOM Intact HENT: Yes: Atraumatic, Large non-tender mass left parotid area Neck: Yes: Supple, Trachea Midline Cardiovascular: Yes: Regular Rate and Rhythm Respiratory: Yes: CTA Bilaterally Gastrointestinal: Yes: Normal Bowel Sounds, Soft ...Rectal Exam: Yes: Deferred Renal/: Yes: WNL Breast(s): Yes: WNL Musculoskeletal: Yes: WNL Extremities: Yes: WNL Edema: No Peripheral Pulses WNL: Yes Integumentary: Yes: WNL Neurological: Yes: Alert, Oriented ...Motor Strength: WNL Psychiatric: Yes: WNL, Alert, Oriented Laboratory Results - last 24 hr 08/04/16 08/04/16 06:00 06:00 WBC 5.7 RBC 3.86 Hgb 9.8 L Hct 30.4 L MCV 78.8 L MCHC 32.4 RDW 17.2 H Plt Count 174 D MPV 10.4 Neutrophils % 57.6 Lymphocytes % 23.6 Monocytes % 14.3 H Eosinophils % 4.0 Basophils % 0.5 Sodium 144 Potassium 3.8 Chloride 106 Carbon Dioxide 30 Anion Gap 8 BUN 14 Creatinine 1.0 Random Glucose 93 Calcium 7.9 L Phosphorus 3.1 Magnesium 1.9 Problem List - Problems (1) Muscle tremor Code(s): R25.1 - TREMOR, UNSPECIFIED (2) Hiatal hernia Code(s): K44.9 - DIAPHRAGMATIC HERNIA WITHOUT OBSTRUCTION OR GANGRENE (3) Mass Code(s): R22.9 - LOCALIZED SWELLING, MASS AND LUMP, UNSPECIFIED Assessment/Plan For possible biopsy of left parotid mass Can screen for OSAS as an outpatient O2 only as needed Incentive Spirometry VTE prophylaxis Dr Retana Problem List - Problems (1) Muscle tremor Code(s): R25.1 - TREMOR, UNSPECIFIED (2) Hiatal hernia Code(s): K44.9 - DIAPHRAGMATIC HERNIA WITHOUT OBSTRUCTION OR GANGRENE (3) Mass Code(s): R22.9 - LOCALIZED SWELLING, MASS AND LUMP, UNSPECIFIED
[2016-08-04] MEDS: ENALAPRIL MALEATE 10 MG TABLET (FP) PO SCH ×2 (10:48→22:14)
[2016-08-04] MEDS: NIFEdipine E.R 60 MG TABLET (UD) PO SCH (10:48)
[2016-08-04] MEDS: DOCUSATE SODIUM 100 MG CAPSULE (FP) PO SCH ×2 (10:48→22:14)
[2016-08-04] MEDS: METOPROLOL SUCCINATE 25 MG TAB.SR.24H (FP) PO SCH ×2 (10:49→22:14)
--- NOTE | 2016-08-04 11:03 | PN ---
Progress Note (short form) - Note Progress Note: Radiation Oncology Had biopsy this AM. Denies pain, swallowing/hearling/breathing changes. Still concerned about not being able to walk due to balance issues. Seen by Neurology. MRI shows well circumscribed mass in superficial left parotid , w/o intracranial or IAC extension, no abnormal enhancement in brain. Will f/u biopsy result. If benign tumor, will need f/u w Dr. Dumont. Neurology f/u for ataxia. Physical therapy.
--- NOTE | 2016-08-04 16:29 | PN ---
Progress Note (short form) - Note Progress Note: Patient seen and examined S/P biopsy of parotid ROS- No headache, diplopia, epistaxis,dysphagia, nausea, SOB, chest pain, dysuria. C/O tremulousness Last Vital Signs Temp Pulse Resp BP Pulse Ox 97.7 F 75 20 108/55 95 08/04/16 14:48 08/04/16 14:48 08/04/16 09:14 08/04/16 14:48 08/04/16 15:00 HEENT: DAMASO, EOM Intact Oropharynx: No thrush, No mucositis,torus pallatini Left paroid swallowing , s/p biopsy Cor: irregular Lungs: Clear to P&A Abd: Soft, Normal bowel sounds, No organomegaly Ext:LE edema Skin: No rashes, Integument intact CBC, BMP 08/04/16 06:00 08/04/16 06:00 Current Medications Generic Name Dose Route Start Last Admin Trade Name Freq PRN Reason Stop Dose Admin Acetaminophen 650 mg 07/27/16 10:44 Tylenol - PO Q4H PRN FEVER OR PAIN Atorvastatin Calcium 40 mg 07/28/16 22:00 08/03/16 22:06 Lipitor - PO 40 mg HS MARIELLE Administration Docusate Sodium 100 mg 07/27/16 22:00 08/04/16 10:48 Colace - PO 100 mg BID MARIELLE Administration Enalapril Maleate 20 mg 07/27/16 22:00 08/04/16 10:48 Vasotec - PO 20 mg BID MARIELLE Administration Enoxaparin Sodium 70 mg 08/04/16 18:00 Lovenox - SQ Q12H MARIELLE Metoprolol Succinate 25 mg 07/28/16 22:00 08/04/16 10:49 Toprol Xl - PO 25 mg BID MARIELLE Administration Nifedipine 60 mg 07/28/16 10:00 08/04/16 10:48 Procardia Xl - PO 60 mg DAILY MARIELLE Administration Ondansetron HCl 4 mg 07/27/16 10:44 Zofran Injection IVPB Q6H PRN NAUSEA Impression: Atrial fib- on lovenox- change to NOAC upon discharge Parotid Mass--s/p biopsy- await results-MRI results noted Anemia- likely chronic disease-screening tests. Essential hypertension- under therapy. Tremulous/unsteady gait- continue with PT.
--- NOTE | 2016-08-04 17:27 | PN ---
Progress Note, Physician Chief Complaint: Ms Stallings complains of being unsteady, otherwise denies complaints. No cp, sob, n/v. - Current Medication List Current Medications: Active Medications Acetaminophen (Tylenol -) 650 mg PO Q4H PRN PRN Reason: FEVER OR PAIN Atorvastatin Calcium (Lipitor -) 40 mg PO HS [facility] Last Admin: 08/03/16 22:06 Dose: 40 mg Docusate Sodium (Colace -) 100 mg PO BID [facility] Last Admin: 08/04/16 10:48 Dose: 100 mg Enalapril Maleate (Vasotec -) 20 mg PO BID [facility] Last Admin: 08/04/16 10:48 Dose: 20 mg Enoxaparin Sodium (Lovenox -) 70 mg SQ Q12H [facility] Metoprolol Succinate (Toprol Xl -) 25 mg PO BID [facility] Last Admin: 08/04/16 10:49 Dose: 25 mg Nifedipine (Procardia Xl -) 60 mg PO DAILY [facility] Last Admin: 08/04/16 10:48 Dose: 60 mg Ondansetron HCl (Zofran Injection) 4 mg IVPB Q6H PRN PRN Reason: NAUSEA - Objective Vital Signs: Vital Signs Temperature 97.7 F 08/04/16 14:48 Pulse Rate 75 08/04/16 14:48 Respiratory Rate 20 08/04/16 09:14 Blood Pressure 108/55 08/04/16 14:48 O2 Sat by Pulse Oximetry (%) 95 08/04/16 15:00 Constitutional: Yes: Well Nourished, No Distress, Calm HENT: Yes: Other (L sided facial mass) Cardiovascular: Yes: Regular Rate and Rhythm. No: Gallop, Murmur, Rub Respiratory: Yes: Regular, CTA Bilaterally. No: Rales, Rhonchi, Wheezes Gastrointestinal: Yes: Normal Bowel Sounds, Soft. No: Distention, Tenderness Extremities: Yes: WNL Edema: No Labs: CBC, BMP 08/04/16 06:00 08/04/16 06:00 INR, PTT INR 1.06 (0.82-1.09) 07/31/16 05:35 Problem List - Problems (1) Dyspnea on exertion Code(s): R06.09 - OTHER FORMS OF DYSPNEA (2) Muscle tremor Code(s): R25.1 - TREMOR, UNSPECIFIED (3) HTN (hypertension) Code(s): I10 - ESSENTIAL (PRIMARY) HYPERTENSION (4) HLD (hyperlipidemia) Code(s): E78.5 - HYPERLIPIDEMIA, UNSPECIFIED (5) Edema Code(s): R60.9 - EDEMA, UNSPECIFIED (6) Mass Code(s): R22.9 - LOCALIZED SWELLING, MASS AND LUMP, UNSPECIFIED (7) DVT (deep venous thrombosis) Code(s): I82.409 - ACUTE EMBOLISM AND THOMBOS UNSP DEEP VN UNSP LOWER EXTREMITY (8) Tachycardia Code(s): R00.0 - TACHYCARDIA, UNSPECIFIED Assessment/Plan (1) DVT Assessment/Plan: -no PE -continue lovenox currently -plan to change to xarelto on discharge (2) Atrial fibrillation Assessment/Plan: -cardiology following and appreciate assistance -found to have atrial fibrillation -will benefit from penitentiary anticoagulation -continue toprol xl (3) HTN (hypertension) Assessment/Plan: -controlled -continue home regimen Code(s): I10 - ESSENTIAL (PRIMARY) HYPERTENSION (4) HLD (hyperlipidemia) Assessment/Plan: -continue statin Code(s): E78.5 - HYPERLIPIDEMIA, UNSPECIFIED (5) Mass Assessment/Plan: -s/p biopsy -oncology following Code(s): R22.9 - LOCALIZED SWELLING, MASS AND LUMP, UNSPECIFIED (6) Lightheadedness -patient mainly concerned about being home alone -very anxious, says "she cannot walk" however walks well with PT -will d/w CM and SW options for discharge
[2016-08-04] MEDS ORDERED: ENOXAPARIN NA (PORCINE) 80 MG/0.8 ML DISP.SYRIN SQ SCH (18:00)
[2016-08-04] MEDS: ATORVASTATIN CA 40 MG TABLET (FP) PO SCH (22:14)
[2016-08-05] MEDS ORDERED: PT OWN MED DRAWER 7, Y5N ONE ×2 (05:02→14:20)
[2016-08-05 07:34] LABS: BASOPHIL 0.6 % (0-2.0); EOSINOPHIL 4.8 % (0-4.5); MCH 25.5 pg (25.7-33.7); MCHC 32.3 g/dl (32.0-36.0); MEAN PLT VOLUME 10.4 fl (7.5-11.1); NEUTROPHILS 60.4 % (42.8-82.8); PLATELET COUNT 181 K/MM3 (134-434); RDW 17.2 % (11.6-15.6); WHITE BLOOD COUNT 5.6 K/mm3 (4.0-10.0)
[2016-08-05 08:33] LABS: FREE T4 1.38 ng/dl (0.76-1.46); THYROID STIMULATING HORMONE 2.28 uIU/ml (0.358-3.74)
[2016-08-05] MEDS: DOCUSATE SODIUM 100 MG CAPSULE (FP) PO SCH ×2 (11:17→21:51)
[2016-08-05] MEDS: METOPROLOL SUCCINATE 25 MG TAB.SR.24H (FP) PO SCH ×2 (11:17→21:51)
[2016-08-05] MEDS: NIFEdipine E.R 60 MG TABLET (UD) PO SCH (11:17)
[2016-08-05] MEDS: ENALAPRIL MALEATE 10 MG TABLET (FP) PO SCH ×2 (11:17→21:51)
--- NOTE | 2016-08-05 11:37 | PN ---
Progress Note (short form) - Note Progress Note: s: no cp palps sob; dizzy improved; still feels weak when walks o: Vital Signs Period Temp Pulse Resp BP Sys/Galvez Pulse Ox Last 24 Hr 97.7 F-98.9 F 68-80 18-18 108-133/52-62 95-95 Constitutional: Yes: Well Nourished, No Distress Eyes: No: Sclera Icterus Respiratory: Yes: CTA Bilaterally. No: Accessory Muscle Use, Rales, Wheezes Gastrointestinal: Yes: Normal Bowel Sounds. No: Distention, Hepatomegaly, Palpable Mass, Tenderness Cardiovascular: Yes: Regular Rate and Rhythm JVD: No Heart Sounds: Yes: S1, S2. No: Gallop Murmur: No: Systolic Murmur, Diastolic Murmur Extremities: No: Cold, Cyanosis Edema: No Integumentary: No: Jaundice Neurological: Yes: Alert, Oriented (x3) Psychiatric: No: Agitated Current Medications Generic Name Dose Route Start Last Admin Trade Name Freq PRN Reason Stop Dose Admin Acetaminophen 650 mg 07/27/16 10:44 Tylenol - PO Q4H PRN FEVER OR PAIN Atorvastatin Calcium 40 mg 07/28/16 22:00 08/04/16 22:14 Lipitor - PO 40 mg HS MARIELLE Administration Docusate Sodium 100 mg 07/27/16 22:00 08/05/16 11:17 Colace - PO 100 mg BID MARIELLE Administration Enalapril Maleate 20 mg 07/27/16 22:00 08/05/16 11:17 Vasotec - PO 20 mg BID MARIELLE Administration Enoxaparin Sodium 70 mg 08/05/16 05:17 Lovenox - SQ BID MARIELLE Metoprolol Succinate 25 mg 07/28/16 22:00 08/05/16 11:17 Toprol Xl - PO 25 mg BID MARIELLE Administration Nifedipine 60 mg 07/28/16 10:00 08/05/16 11:17 Procardia Xl - PO 60 mg DAILY MARIELLE Administration Ondansetron HCl 4 mg 07/27/16 10:44 Zofran Injection IVPB Q6H PRN NAUSEA CBC, BMP 08/05/16 05:52 08/04/16 06:00 ekg #1: NSR with APCs; normal axis/interv; no path q's; nonsp ST-T inferior leads ekg #2 (07/28): NSR with APCs Echo 07/27/16: nl LV/EF; nl RV; mild LAE/PIPE; mild TR; peak RVSP 58; trivial peric eff not hemody significant Assessment/Plan sob, PND: -suspect sx's may have correlated with episodes of rapid atrial arrhythmia/AF -no chf findings on CXR or CT chest here -unlikely that moderately elevated pulm pressure would cause this, if not acutely elevated (which it likely is not here, since no PE found and since RV is not dilated) -sx's could be explained by BONILLA, which could also explain the pulm HTN--rec sleep study as outpt -no isch ecg findings and serial trop neg x 3--stress testing not indicated for this sx, though should consider if she develops activity intolerance or exertional sob parox AF, MAT: -tele mostly sinus with APCs and one episode of suspected MAT; -however there appears to be paroxysmal afib as well -started on AC here for DVT -given CHADS VASC is 4, with approx 4%/year CVA risk (which is > expected bleeding risk from AC), would rec indefinite AC for cva prophylaxis -on lovenox, to start xarelto or eliquis when ready for d/c -cont toprol 25 bid tremulousness: -sx's persist in sinus rhythm, hence clearly unrelated to atrial arrhythmias -suspect anxiety LE DVT: -AC as disc'd, heme following HTN: -bp controlled here -changed bisoprolol-HCT to metoprolol for PAF control HPL: -cont outpt med regimen dizzy/poor balance: -orthostatics normal here -neck ct showing large parotid mass now s/p biopsy. onc, neuro following.
[2016-08-05] MEDS: ENOXAPARIN NA (PORCINE) 80 MG/0.8 ML DISP.SYRIN SQ SCH ×2 (14:27→21:51)
[2016-08-05] MEDS ORDERED: ALBUTEROL SO4 0.083% IH SOL 2.5 MG/3 ML VIAL.NEB. NEB PRN (14:55)
--- NOTE | 2016-08-05 14:55 | PN ---
Progress Note, Physician History of Present Illness: PULMONARY ALERT,NAD,+COUGH,-SOB - Current Medication List Current Medications: Active Medications Acetaminophen (Tylenol -) 650 mg PO Q4H PRN PRN Reason: FEVER OR PAIN Atorvastatin Calcium (Lipitor -) 40 mg PO HS [facility] Last Admin: 08/04/16 22:14 Dose: 40 mg Docusate Sodium (Colace -) 100 mg PO BID [facility] Last Admin: 08/05/16 11:17 Dose: 100 mg Enalapril Maleate (Vasotec -) 20 mg PO BID [facility] Last Admin: 08/05/16 11:17 Dose: 20 mg Enoxaparin Sodium (Lovenox -) 70 mg SQ BID [facility] Last Admin: 08/05/16 14:27 Dose: 70 mg Metoprolol Succinate (Toprol Xl -) 25 mg PO BID [facility] Last Admin: 08/05/16 11:17 Dose: 25 mg Nifedipine (Procardia Xl -) 60 mg PO DAILY [facility] Last Admin: 08/05/16 11:17 Dose: 60 mg Ondansetron HCl (Zofran Injection) 4 mg IVPB Q6H PRN PRN Reason: NAUSEA - Objective Vital Signs: Vital Signs Temperature 98.4 F 08/05/16 13:46 Pulse Rate 70 08/05/16 13:46 Respiratory Rate 20 08/05/16 13:46 Blood Pressure 142/58 08/05/16 13:46 O2 Sat by Pulse Oximetry (%) 95 08/04/16 23:00 Constitutional: Yes: Well Nourished, Calm Eyes: Yes: WNL HENT: Yes: Other (LEFT PAROTID MASS) Neck: Yes: Supple Cardiovascular: Yes: Regular Rate and Rhythm, S1, S2 Respiratory: Yes: Wheezes (FEW WHEEZES ON R) Gastrointestinal: Yes: Normal Bowel Sounds, Soft Extremities: Yes: WNL Edema: No Labs: CBC, BMP 08/05/16 05:52 08/04/16 06:00 INR, PTT INR 1.06 (0.82-1.09) 07/31/16 05:35 Assessment/Plan Problem List - Problems (1) Muscle tremor Code(s): R25.1 - TREMOR, UNSPECIFIED (2) Hiatal hernia Code(s): K44.9 - DIAPHRAGMATIC HERNIA WITHOUT OBSTRUCTION OR GANGRENE (3) Mass Code(s): R22.9 - LOCALIZED SWELLING, MASS AND LUMP, UNSPECIFIED Assessment/Plan PLAN: Can screen for OSAS as an outpatient O2 only as needed Incentive Spirometry check path inhaled bronchodilators DR PAINTER
--- NOTE | 2016-08-05 14:57 | PATH ---
Surgical Pathology Report Patient Name: PA RYEDR Med. Rec. #: [id number] /Age/Gender: 1925 (Age: 89) / F Account: [id number] Location: [facility] MED/SURG Taken: 08/04/2016 Received: 08/04/2016 Reported: 08/05/2016 Physicians: Sid Case M.D. Donovan Delacruz M.D. Samuel Abrams M.D. Wilfredo Villafana M.D., PhD Specimen(s) Received BX LEFT PAROTID MASS Clinical History 89 year old female with large left parotid mass Final Diagnosis PAROTID GLAND, LEFT, MASS, US GUIDED CORE BIOPSY: MUCOEPDERMOID CARCINOMA, LOW GRADE (SEE COMMENT). Comment: The biopsy sections show an infiltrative neoplasm composed of islands and nests of epithelial cells with epidermoid/squamous differentiation along with mucous cells and intermediate cells. The mitotic activity is low, necrosis is not evident. The tumor cells are positive for p63 immunostain (performed and interpreted [employer]). Mucicarmine stain demonstrates intracytoplasmic mucin. 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 The case was discussed with Dr. Hayward on 08/05/16. Electronically Signed Carlos Eduardo Augustin M.D. Gross Description Received in formalin, labeled "left neck mass" are 5 edouard, cylindrical portions of soft tissue ranging from 0.8-1.8 cm in length and averaging 0.1 cm in diameter. The specimens are submitted in toto in one cassette. Additional tissue received in RPMI solution is also processed in an additional cassette. /08/04/2016 saudi08/04/2016
--- NOTE | 2016-08-05 15:50 | PN ---
Progress Note, Physician Chief Complaint: Ms Stallings is without new complaints. No cp, sob, n/v - Current Medication List Current Medications: Active Medications Acetaminophen (Tylenol -) 650 mg PO Q4H PRN PRN Reason: FEVER OR PAIN Albuterol Sulfate (Ventolin 0.083% Nebulizer Soln -) 1 amp NEB Q4H PRN PRN Reason: SHORT OF BREATH/WHEEZING Atorvastatin Calcium (Lipitor -) 40 mg PO HS [facility] Last Admin: 08/04/16 22:14 Dose: 40 mg Docusate Sodium (Colace -) 100 mg PO BID [facility] Last Admin: 08/05/16 11:17 Dose: 100 mg Enalapril Maleate (Vasotec -) 20 mg PO BID [facility] Last Admin: 08/05/16 11:17 Dose: 20 mg Enoxaparin Sodium (Lovenox -) 70 mg SQ BID [facility] Last Admin: 08/05/16 14:27 Dose: 70 mg Metoprolol Succinate (Toprol Xl -) 25 mg PO BID [facility] Last Admin: 08/05/16 11:17 Dose: 25 mg Nifedipine (Procardia Xl -) 60 mg PO DAILY [facility] Last Admin: 08/05/16 11:17 Dose: 60 mg Ondansetron HCl (Zofran Injection) 4 mg IVPB Q6H PRN PRN Reason: NAUSEA - Objective Vital Signs: Vital Signs Temperature 98.4 F 08/05/16 13:46 Pulse Rate 76 08/05/16 15:13 Respiratory Rate 20 08/05/16 13:46 Blood Pressure 142/58 08/05/16 13:46 O2 Sat by Pulse Oximetry (%) 95 08/05/16 15:13 Constitutional: Yes: Well Nourished, No Distress, Calm HENT: Yes: Other (large left facial mass) Cardiovascular: Yes: Regular Rate and Rhythm. No: Gallop, Murmur, Rub Respiratory: Yes: Regular, CTA Bilaterally. No: Rales, Rhonchi, Wheezes Gastrointestinal: Yes: Normal Bowel Sounds, Soft. No: Distention, Tenderness Extremities: Yes: WNL Edema: No Labs: CBC, BMP 08/05/16 05:52 08/04/16 06:00 INR, PTT INR 1.06 (0.82-1.09) 07/31/16 05:35 Problem List - Problems (1) Dyspnea on exertion Code(s): R06.09 - OTHER FORMS OF DYSPNEA (2) Muscle tremor Code(s): R25.1 - TREMOR, UNSPECIFIED (3) HTN (hypertension) Code(s): I10 - ESSENTIAL (PRIMARY) HYPERTENSION (4) HLD (hyperlipidemia) Code(s): E78.5 - HYPERLIPIDEMIA, UNSPECIFIED (5) Edema Code(s): R60.9 - EDEMA, UNSPECIFIED (6) Mass Code(s): R22.9 - LOCALIZED SWELLING, MASS AND LUMP, UNSPECIFIED (7) DVT (deep venous thrombosis) Code(s): I82.409 - ACUTE EMBOLISM AND THOMBOS UNSP DEEP VN UNSP LOWER EXTREMITY (8) Tachycardia Code(s): R00.0 - TACHYCARDIA, UNSPECIFIED Assessment/Plan (1) DVT Assessment/Plan: -no PE -continue lovenox currently -plan to change to xarelto on discharge (2) Atrial fibrillation Assessment/Plan: -cardiology following and appreciate assistance -found to have atrial fibrillation -will benefit from termite helper anticoagulation -continue toprol xl (3) HTN (hypertension) Assessment/Plan: -controlled -continue home regimen Code(s): I10 - ESSENTIAL (PRIMARY) HYPERTENSION (4) HLD (hyperlipidemia) Assessment/Plan: -continue statin Code(s): E78.5 - HYPERLIPIDEMIA, UNSPECIFIED (5) Mass Assessment/Plan: -s/p biopsy, awaiting results -oncology following Code(s): R22.9 - LOCALIZED SWELLING, MASS AND LUMP, UNSPECIFIED (6) Lightheadedness -case d/w CM/SW -evaluating for possible SNF placement
--- NOTE | 2016-08-05 16:49 | PN ---
Progress Note (short form) - Note Progress Note: PAtient seen and examined still with unsteady gait Last Vital Signs Temp Pulse Resp BP Pulse Ox 98.4 F 76 20 142/58 95 08/05/16 13:46 08/05/16 15:13 08/05/16 13:46 08/05/16 13:46 08/05/16 15:13 HEENT: DAMASO, EOM Intact Left parotid mass Neck: Supple Cor: RSR, No murmurs, No gallops Lungs: Clear to P&A Abd: Soft, Normal bowel sounds, No organomegaly Abnormal Lab Results 08/05/16 08/05/16 05:52 05:52 Hgb 10.2 L Hct 31.5 L MCV 79.0 L RDW 17.2 H Monocytes % 13.4 H Eosinophils % 4.8 H Serum Folate 3 L Current Medications Acetaminophen (Tylenol -) 650 mg PO Q4H PRN PRN Reason: FEVER OR PAIN Albuterol Sulfate (Ventolin 0.083% Nebulizer Soln -) 1 amp NEB Q4H PRN PRN Reason: SHORT OF BREATH/WHEEZING Atorvastatin Calcium (Lipitor -) 40 mg PO HS [facility] Last Admin: 08/04/16 22:14 Dose: 40 mg Docusate Sodium (Colace -) 100 mg PO BID [facility] Last Admin: 08/05/16 11:17 Dose: 100 mg Enalapril Maleate (Vasotec -) 20 mg PO BID [facility] Last Admin: 08/05/16 11:17 Dose: 20 mg Enoxaparin Sodium (Lovenox -) 70 mg SQ BID [facility] Last Admin: 08/05/16 14:27 Dose: 70 mg Metoprolol Succinate (Toprol Xl -) 25 mg PO BID [facility] Last Admin: 08/05/16 11:17 Dose: 25 mg Nifedipine (Procardia Xl -) 60 mg PO DAILY [facility] Last Admin: 08/05/16 11:17 Dose: 60 mg Ondansetron HCl (Zofran Injection) 4 mg IVPB Q6H PRN PRN Reason: NAUSEA A/P 89 y/o patient presents with tremulous feeling in throat , whole gait unsteadiness, dizziness, Lt. parotid mass. Noted to have afib. Lt. parotid mass --patient noticed it 2 yrs. ago. Did not get w/u as she was scared. 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 atrophy, ventricular dilatation and large Lt. parotid mass CT angio chest --no PE MRI face/neck and MRI IAC and MRI brain to r/o extension of tumor --- well demarcated Lt. parotid lesion/no adenopathy pathology c/w mucoepidermoid carcinoma to f/u with Dr. Dumont as outpatient. MAy need to consider RT based on surgical course. RLE post. tibial DVT--on lovenox to consider xeralto for afib/DVT , per primary team mild anemia --nl ferritin/B12 low folate level ---start folic acid 1 mg daily
[2016-08-05] MEDS: ATORVASTATIN CA 40 MG TABLET (FP) PO SCH (21:51)
[2016-08-06 07:06] LABS: BASOPHIL 0.3 % (0-2.0); EOSINOPHIL 3.8 % (0-4.5); MCH 25.6 pg (25.7-33.7); MCHC 32.2 g/dl (32.0-36.0); MEAN CELL VOLUME 79.6 fl (80-96); MEAN PLT VOLUME 10.9 fl (7.5-11.1); NEUTROPHILS 63.7 % (42.8-82.8); PLATELET COUNT 198 K/MM3 (134-434); WHITE BLOOD COUNT 6.9 K/mm3 (4.0-10.0)
[2016-08-06 07:17] LABS: INR 1.09 (0.82-1.09)
[2016-08-06 07:20] LABS: ACTIVATED PTT 41.1 SECONDS (26.9-34.4)
[2016-08-06 07:41] LABS: ALBUMIN 2.9 g/dl (3.4-5.0); BILIRUBIN,TOTAL 0.5 mg/dL (0.2-1.0); CALCIUM 8.1 mg/dL (8.5-10.1); TOT PROT 5.9 g/dl (6.4-8.2)
[2016-08-06 08:06] LABS: SERUM IRON 27 ug/dL (27-139); TOTAL IRON BINDING CAPACITY 223 ug/dL (250-450); UIBC 196 ug/dL (118-369)
--- NOTE | 2016-08-06 09:43 | PN ---
Progress Note (short form) - Note Progress Note: Breathing feels OK. No CP or SOB. Awaiting biopsy results. Intake & Output 08/03/16 08/04/16 08/05/16 08/06/16 23:59 23:59 23:59 23:59 Intake Total 200 740 800 Balance 200 740 800 Last Vital Signs Temp Pulse Resp BP Pulse Ox 98.7 F 70 20 123/51 94 L 08/06/16 05:00 08/06/16 05:00 08/06/16 07:00 08/06/16 05:00 08/06/16 07:00 Active Medications Acetaminophen (Tylenol -) 650 mg PO Q4H PRN PRN Reason: FEVER OR PAIN Albuterol Sulfate (Ventolin 0.083% Nebulizer Soln -) 1 amp NEB Q4H PRN PRN Reason: SHORT OF BREATH/WHEEZING Last Admin: 08/05/16 19:05 Dose: 1 amp Atorvastatin Calcium (Lipitor -) 40 mg PO HS [facility] Last Admin: 08/05/16 21:51 Dose: 40 mg Docusate Sodium (Colace -) 100 mg PO BID [facility] Last Admin: 08/05/16 21:51 Dose: Not Given Enalapril Maleate (Vasotec -) 20 mg PO BID [facility] Last Admin: 08/05/16 21:51 Dose: 20 mg Enoxaparin Sodium (Lovenox -) 70 mg SQ BID [facility] Last Admin: 08/05/16 21:51 Dose: 70 mg Folic Acid (Folic Acid -) 1 mg PO DAILY [facility] Metoprolol Succinate (Toprol Xl -) 25 mg PO BID [facility] Last Admin: 08/05/16 21:51 Dose: 25 mg Nifedipine (Procardia Xl -) 60 mg PO DAILY [facility] Last Admin: 08/05/16 11:17 Dose: 60 mg Ondansetron HCl (Zofran Injection) 4 mg IVPB Q6H PRN PRN Reason: NAUSEA Constitutional: Yes: Well Nourished, No Distress Eyes: Yes: Conjunctiva Clear, EOM Intact HENT: Yes: Atraumatic, Large non-tender mass left parotid area Neck: Yes: Supple, Trachea Midline Cardiovascular: Yes: Regular Rate and Rhythm Respiratory: Yes: CTA Bilaterally Gastrointestinal: Yes: Normal Bowel Sounds, Soft ...Rectal Exam: Yes: Deferred Renal/: Yes: WNL Breast(s): Yes: WNL Musculoskeletal: Yes: WNL Extremities: Yes: WNL Edema: No Peripheral Pulses WNL: Yes Integumentary: Yes: WNL Neurological: Yes: Alert, Oriented ...Motor Strength: WNL Psychiatric: Yes: WNL, Alert, Oriented Laboratory Results - last 24 hr 08/05/16 08/06/16 08/06/16 05:52 06:00 06:00 WBC 6.9 RBC 4.12 Hgb 10.6 L Hct 32.8 MCV 79.6 L MCHC 32.2 RDW 18.0 H Plt Count 198 MPV 10.9 Neutrophils % 63.7 Lymphocytes % 19.9 Monocytes % 12.3 H Eosinophils % 3.8 Basophils % 0.3 INR 1.09 PTT (Actin FS) 41.1 H Sodium Potassium Chloride Carbon Dioxide Anion Gap BUN Creatinine Creat Clearance w eGFR Random Glucose Calcium Iron 27 TIBC 223 L Iron Saturation 12 L Total Bilirubin AST ALT Alkaline Phosphatase Total Protein Albumin 08/06/16 06:00 WBC RBC Hgb Hct MCV MCHC RDW Plt Count MPV Neutrophils % Lymphocytes % Monocytes % Eosinophils % Basophils % INR PTT (Actin FS) Sodium 142 Potassium 4.4 Chloride 103 Carbon Dioxide 29 Anion Gap 10 BUN 12 Creatinine 1.0 Creat Clearance w eGFR 52.20 Random Glucose 88 Calcium 8.1 L Iron TIBC Iron Saturation Total Bilirubin 0.5 AST 26 D ALT 23 D Alkaline Phosphatase 115 D Total Protein 5.9 L Albumin 2.9 L Problem List - Problems (1) Muscle tremor Code(s): R25.1 - TREMOR, UNSPECIFIED (2) Hiatal hernia Code(s): K44.9 - DIAPHRAGMATIC HERNIA WITHOUT OBSTRUCTION OR GANGRENE (3) Mass Code(s): R22.9 - LOCALIZED SWELLING, MASS AND LUMP, UNSPECIFIED Assessment/Plan Pending biopsy results Lovenox BID -> (?) NOAC Can screen for OSAS as an outpatient O2 only as needed Incentive Spirometry VTE prophylaxis D/C planning Dr Retana Problem List - Problems (1) Muscle tremor Code(s): R25.1 - TREMOR, UNSPECIFIED (2) Hiatal hernia Code(s): K44.9 - DIAPHRAGMATIC HERNIA WITHOUT OBSTRUCTION OR GANGRENE (3) Mass Code(s): R22.9 - LOCALIZED SWELLING, MASS AND LUMP, UNSPECIFIED
[2016-08-06] MEDS: DOCUSATE SODIUM 100 MG CAPSULE (FP) PO SCH (09:53)
[2016-08-06] MEDS: NIFEdipine E.R 60 MG TABLET (UD) PO SCH (09:53)
[2016-08-06] MEDS: ENALAPRIL MALEATE 10 MG TABLET (FP) PO SCH (09:53)
[2016-08-06] MEDS: METOPROLOL SUCCINATE 25 MG TAB.SR.24H (FP) PO SCH (09:53)
[2016-08-06] MEDS ORDERED: FOLIC ACID 1 MG TABLET (FP) PO SCH (10:00)
[2016-08-06] MEDS ORDERED: PT OWN MED DRAWER 7, Y5N ONE (10:05)
[2016-08-06] MEDS: ENOXAPARIN NA (PORCINE) 80 MG/0.8 ML DISP.SYRIN SQ SCH (10:07)
--- NOTE | 2016-08-06 11:09 | PN ---
Progress Note (short form) - Note Progress Note: s: no cp palps sob; dizzy improved; still feels weak when walks but better o: Vital Signs Period Temp Pulse Resp BP Sys/Galvez Pulse Ox Last 24 Hr 97.7 F-98.7 F 70-82 18-20 123-150/51-72 92-95 Constitutional: Yes: Well Nourished, No Distress Eyes: No: Sclera Icterus Respiratory: Yes: CTA Bilaterally. No: Accessory Muscle Use, Rales, Wheezes Gastrointestinal: Yes: Normal Bowel Sounds. No: Distention, Hepatomegaly, Palpable Mass, Tenderness Cardiovascular: Yes: Regular Rate and Rhythm JVD: No Heart Sounds: Yes: S1, S2. No: Gallop Murmur: No: Systolic Murmur, Diastolic Murmur Extremities: No: Cold, Cyanosis Edema: No Integumentary: No: Jaundice Neurological: Yes: Alert, Oriented (x3) Psychiatric: No: Agitated Current Medications Generic Name Dose Route Start Last Admin Trade Name Freq PRN Reason Stop Dose Admin Acetaminophen 650 mg 07/27/16 10:44 Tylenol - PO Q4H PRN FEVER OR PAIN Albuterol Sulfate 1 amp 08/05/16 14:55 08/05/16 19:05 Ventolin 0.083% Nebulizer Soln - NEB 1 amp Q4H PRN Administration SHORT OF BREATH/WHEEZING Atorvastatin Calcium 40 mg 07/28/16 22:00 08/05/16 21:51 Lipitor - PO 40 mg HS MARIELLE Administration Docusate Sodium 100 mg 07/27/16 22:00 08/06/16 09:53 Colace - PO 100 mg BID MARIELLE Administration Enalapril Maleate 20 mg 07/27/16 22:00 08/06/16 09:53 Vasotec - PO 20 mg BID MARIELLE Administration Enoxaparin Sodium 70 mg 08/05/16 05:17 08/06/16 10:07 Lovenox - SQ 70 mg BID MARIELLE Administration Folic Acid 1 mg 08/06/16 10:00 08/06/16 09:53 Folic Acid - PO 1 mg DAILY MARIELLE Administration Metoprolol Succinate 25 mg 07/28/16 22:00 08/06/16 09:53 Toprol Xl - PO 25 mg BID MARIELLE Administration Nifedipine 60 mg 07/28/16 10:00 08/06/16 09:53 Procardia Xl - PO 60 mg DAILY MARIELLE Administration Ondansetron HCl 4 mg 07/27/16 10:44 Zofran Injection IVPB Q6H PRN NAUSEA CBC, BMP 08/06/16 06:00 08/06/16 06:00 ekg #1: NSR with APCs; normal axis/interv; no path q's; nonsp ST-T inferior leads ekg #2 (07/28): NSR with APCs Echo 07/27/16: nl LV/EF; nl RV; mild LAE/PIPE; mild TR; peak RVSP 58; trivial peric eff not hemody significant Assessment/Plan sob, PND: -suspect sx's may have correlated with episodes of rapid atrial arrhythmia/AF -no chf findings on CXR or CT chest here -unlikely that moderately elevated pulm pressure would cause this, if not acutely elevated (which it likely is not here, since no PE found and since RV is not dilated) -sx's could be explained by BONILLA, which could also explain the pulm HTN--rec sleep study as outpt -no isch ecg findings and serial trop neg x 3--stress testing not indicated for this sx, though should consider if she develops activity intolerance or exertional sob parox AF, MAT: -tele mostly sinus with APCs and one episode of suspected MAT; -however there appears to be paroxysmal afib as well -started on AC here for DVT -given CHADS VASC is 4, with approx 4%/year CVA risk (which is > expected bleeding risk from AC), would rec indefinite AC for cva prophylaxis -on lovenox, to start xarelto or eliquis when ready for d/c -cont toprol 25 bid tremulousness: -sx's persist in sinus rhythm, hence clearly unrelated to atrial arrhythmias -suspect anxiety LE DVT: -AC as disc'd, heme following HTN: -bp controlled here -changed bisoprolol-HCT to metoprolol for PAF control HPL: -cont outpt med regimen dizzy/poor balance: -orthostatics normal here -neck ct showing large parotid mass now s/p biopsy. onc, neuro following. -pt/rehab
--- NOTE | 2016-08-06 12:13 | DS ---
Physical Examination Vital Signs: Vital Signs Temperature 98.7 F 08/06/16 05:00 Pulse Rate 70 08/06/16 05:00 Respiratory Rate 20 08/06/16 07:00 Blood Pressure 123/51 08/06/16 05:00 O2 Sat by Pulse Oximetry (%) 94 L 08/06/16 07:00 Constitutional: Yes: Well Nourished, No Distress, Calm Cardiovascular: Yes: Regular Rate and Rhythm. No: Gallop, Murmur, Rub Respiratory: Yes: Regular, CTA Bilaterally. No: Rales, Rhonchi, Wheezes Gastrointestinal: Yes: Normal Bowel Sounds, Soft. No: Distention, Tenderness Extremities: Yes: WNL Edema: No Labs: CBC, BMP 08/06/16 06:00 08/06/16 06:00 Discharge Summary Reason For Visit: MUSCLE TREMOR,DYSPNEA ON EXERTION Current Active Problems DVT (deep venous thrombosis) (Acute) Dyspnea on exertion (Acute) Edema (Acute) HLD (hyperlipidemia) (Acute) HTN (hypertension) (Acute) Hiatal hernia (Acute) Mandibular anomaly (Acute) Mass (Acute) Muscle tremor (Acute) Tachycardia (Acute) Weakness generalized (Acute) Hospital Course: (1) Dyspnea on exertion Code(s): R06.09 - OTHER FORMS OF DYSPNEA (2) Muscle tremor Code(s): R25.1 - TREMOR, UNSPECIFIED (3) HTN (hypertension) Code(s): I10 - ESSENTIAL (PRIMARY) HYPERTENSION (4) HLD (hyperlipidemia) Code(s): E78.5 - HYPERLIPIDEMIA, UNSPECIFIED (5) Edema Code(s): R60.9 - EDEMA, UNSPECIFIED (6) Mass Code(s): R22.9 - LOCALIZED SWELLING, MASS AND LUMP, UNSPECIFIED (7) DVT (deep venous thrombosis) Code(s): I82.409 - ACUTE EMBOLISM AND THOMBOS UNSP DEEP VN UNSP LOWER EXTREMITY (8) Tachycardia Code(s): R00.0 - TACHYCARDIA, UNSPECIFIED Ms Stallings is a pleasant 89 year old female who comes in with dyspnea on exertion and tremors and was found to have a facial mass and a DVT. She was admitted to the hospital and evaluated. 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 She was also found to have a DVT and started on anticoagulation. Since she was dyspneic she was evaluated for PE, this was negative. Currently she is stable for discharge to SNF 40 minutes spent in preparation of this discharge Condition: Good - Instructions Diet, Activity, Other Instructions: regular diet. up with assistance, further activity per PT Referrals: Wilfredo Villafana MD [Staff Physician] - Mercedes Hayward MD [Staff Physician] - Rafael Dumont MD [Staff Physician] - Jeni Yoo MD [Primary Care Provider] - Jenna Angelo MD [Staff Physician] - Disposition: INTERMEDIATE FACILITY - Home Medications Comprehensive Discharge Medication List: Ambulatory Orders Atorvastatin Ca [Lipitor] 40 mg PO DAILY 07/27/16 Enalapril Maleate [Vasotec] 20 mg PO BID 07/27/16 Nifedipine ER [Procardia XL -] 60 mg PO DAILY 07/27/16 Acetaminophen [Tylenol .Regular Strength -] 650 mg PO Q4H PRN #0 tablet Apixaban [Eliquis] 5 mg PO BID #60 tablet 08/06/16 Folic Acid - 1 mg PO DAILY tablet 08/06/16 Metoprolol Succinate [Toprol XL -] 25 mg PO BID tab.sr.24h 08/06/16
[2016-08-06 17:38] VITALS: BP 144/57; PULSE 90; TEMP 98.8
== END 2016-08-06 19:34 | DRG 137 ==
LOC: JER 06:28 → UNDOADMOB 09:54 → JERBED 09:54 → INTOOBSV 09:54 → JERBED 10:44 → OBSVTOIN 16:39 → UNDOADMOB 16:39 → INTOOBSV 16:39 → JERBED 16:39 → J4W 23:24 → J7W 08-01 17:24
PROVIDERS: ADMIT Internal Medicine; ATTEND Internal Medicine
PROC: 0CB Mouth and Throat, Excision (ICD-10-PCS; principal; 2016-08-04)
DX: C07 Malignant neoplasm of parotid gland (principal); I82.4Z1 Acute embolism and thrombosis of unspecified deep veins of right distal lower extremity; J98.11 Atelectasis; E78.5 Hyperlipidemia, unspecified; I10 Essential (primary) hypertension; K44.9 Diaphragmatic hernia without obstruction or gangrene; R00.0 Tachycardia, unspecified; I48.0 Paroxysmal atrial fibrillation; R25.1 Tremor, unspecified; D64.9 Anemia, unspecified; R26.81 Unsteadiness on feet; R42 Dizziness and giddiness
CPT/HCPCS: 36415; 70450-TC; 70486-TC; 70542; 70542-TC; 71010-TC; 71020-TC; 71275-TC; 76942-TC; 80048; 80053; 81003; 81015; 82550; 82607; 82728; 82746; 83540; 83550; 83615; 83735; 83880; 84100; 84439; 84443; 84484; 85025; 85044; 85610; 85730; 87040; 87899; 88305-TC; 93005; 93010; 93306-TC; 93971-TC; 94640; 97116-GP; 97162-PG; 99284-25; C1887; G0378; J1644

== ENCOUNTER 2016-08-06 20:34 | Inpatient (IN) | payer OTHER ==
--- NOTE | 2016-08-06 21:24 | PDOC ---
History of Present Illness - History of Present Illness Initial Comments: 08/06/16 22:00 Patient is an 89 year old female with significant medical hx of HTN, HLD and DVT who is presenting to the ED with one week of cough with associated shortness of breath and mild white sputum production. Patient denies associated chest pain, fever, chills, nausea, vomiting, diarrhea. Patient has a right lower extremity DVT. She reports receiving a chest scan recently that did not reveal pulmonary embolism. <Sherri Crawford - Last Filed: 08/06/16 23:41> <Ray Morgan - Last Filed: 08/08/16 07:35> - General Chief Complaint: Respiratory Stated Complaint: DIFFICULTY BREATHING Time Seen by Provider: 08/06/16 20:46 Past History <Sherri Crawford - Last Filed: 08/06/16 23:41> - Past Medical History Anemia: Yes DVT: Yes HTN: Yes Hypercholesterolemia: Yes Other medical history: Mass to left mandible - Psycho/Social/Smoking Cessation Hx Suicidal Ideation: No Smoking History: Never smoked Information on smoking cessation initiated: No Hx Alcohol Use: No Drug/Substance Use Hx: No Substance Use Type: None <Ray Morgan - Last Filed: 08/08/16 07:35> - Past Medical History Allergies/Adverse Reactions: Allergies Allergy/AdvReac Type Severity Reaction Status Date / Time No Known Allergies Allergy Verified 08/06/16 21:09 Home Medications: Ambulatory Orders Atorvastatin Ca [Lipitor] 40 mg PO DAILY 07/27/16 Enalapril Maleate [Vasotec] 20 mg PO BID 07/27/16 Nifedipine ER [Procardia XL -] 60 mg PO DAILY 07/27/16 Acetaminophen [Tylenol .Regular Strength -] 650 mg PO Q4H PRN #0 tablet Apixaban [Eliquis] 5 mg PO BID #60 tablet 08/06/16 Folic Acid - 1 mg PO DAILY tablet 08/06/16 Metoprolol Succinate [Toprol XL -] 25 mg PO BID tab.sr.24h 08/06/16 Review of Systems - Review of Systems Comments:: 08/06/16 22:00 CONSTITUTIONAL: No fever, no chills, no fatigue EYES: No visual changes ENT: No ear pain, no sore throat CARDIOVASCULAR: No chest pain, no palpitations RESPIRATORY: Cough, SOB GI: No abdominal pain, no nausea, no vomiting, no constipation, no diarrhea GENITOURINARY: No dysuria, no frequency, no hematuria MUSKULOSKELETAL: No backpain, no joint pain, no myalgias SKIN: No rash NEURO: No headache <Sherri Crawford - Last Filed: 08/06/16 23:41> *Physical Exam - Vital Signs Last Vital Signs Temp Pulse Resp BP Pulse Ox 98.2 F 93 H 20 143/62 100 08/06/16 21:04 08/06/16 21:04 08/06/16 21:04 08/06/16 21:04 08/06/16 21:04 <Sherri Crawford - Last Filed: 08/06/16 23:41> - Vital Signs Last Vital Signs Temp Pulse Resp BP Pulse Ox 98.2 F 93 H 20 143/62 100 08/06/16 21:04 08/06/16 21:04 08/06/16 21:04 08/06/16 21:04 08/06/16 21:04 - Physical Exam Comments: 08/07/16 00:26 EXAMINATION CONSTITUTIONAL: Alert and awake, well-nourished, mildly tachypneic and dyspneic , in mild respiratory distress HEAD: Normocephalic; atraumatic EYES: PERRL; EOM intact ENMT: + Large left parotid mass is noted with 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 CBC shows no evidence of significant leukocytosis. Urinalysis within normal limit. Chest x- ray reveals persistently elevated left hemidiaphragm without evidence of infiltrate or effusion. Patient is noted to be influenza negative at this time. Patient will require CTA of chest with IV contrast to rule out PE. Will treat with antibiotics. Likely admission. <Ray Morgan - Last Filed: 08/08/16 07:35> *DC/Admit/Observation/Transfer - Attestations Scribe Attestion: 08/06/16 22:01 Documentation prepared by Sherri Crawford, acting as medical recruiter for Ray Morgan MD. <Sherri Crawford - Last Filed: 08/06/16 23:41> - Attestations Physician Attestion: 08/07/16 00:26 The documentation was prepared by the scribe under my direct supervision. I have reviewed the documentation which correctly represents the findings, medical decision-making and critical action taken by me. <Ray Morgan - Last Filed: 08/08/16 07:35> Diagnosis at time of Disposition: Dyspnea on exertion, Hypoxemia - Referrals
[2016-08-06] MEDS ORDERED: ACETAMINOPHEN 325 MG TABLET (FP) PO ONE (22:31)
[2016-08-06] MEDS ORDERED: ACETAMINOPHEN 325 MG TABLET (FP) ONE (23:39)
[2016-08-06 23:57] LABS: URINE APPEARANCE CLEAR; URINE BILIRUBIN NEGATIVE (NEGATIVE); URINE BLOOD NEGATIVE (NEGATIVE); URINE COLOR YELLOW; URINE GLUCOSE (UA) NEGATIVE (NEGATIVE); URINE KETONE TRACE (NEGATIVE); URINE LEUK ESTERASE NEGATIVE (NEGATIVE); URINE NITRITE NEGATIVE (NEGATIVE); URINE UROBILINOGEN NEGATIVE E.U./dl (0.2-1.0)
[2016-08-07 00:02] LABS: URINE PROTEIN 1+ (NEGATIVE)
[2016-08-07 00:03] LABS: URINE MUCUS RARE; URINE RBC 1 /hpf (0-3); URINE WBC 2 /hpf (3-5)
[2016-08-07 00:21] LABS: BASOPHIL 0.9 % (0-2.0); EOSINOPHIL 0.9 % (0-4.5); MCH 24.9 pg (25.7-33.7); MCHC 31.8 g/dl (32.0-36.0); MEAN CELL VOLUME 78.4 fl (80-96); MEAN PLT VOLUME 10.1 fl (7.5-11.1); NEUTROPHILS 69.2 % (42.8-82.8); PLATELET COUNT 222 K/MM3 (134-434); RDW 17.9 % (11.6-15.6); WHITE BLOOD COUNT 6.8 K/mm3 (4.0-10.0)
[2016-08-07 00:32] LABS: INR 1.04 (0.82-1.09); PROTHROMBIN TIME (PATIENT) 11.5 SEC (9.98-11.88)
[2016-08-07 00:40] LABS: ALBUMIN 3.2 g/dl (3.4-5.0); BILIRUBIN,TOTAL 0.4 mg/dL (0.2-1.0); CALCIUM 8.5 mg/dL (8.5-10.1); CREATININE 1.2 mg/dL (0.55-1.02); TOT PROT 6.2 g/dl (6.4-8.2)
[2016-08-07] MEDS ORDERED: CEFTRIAXONE 1 GM in DEXTROSE 5%-WATER - 50 ML IVPB ONE (01:36)
[2016-08-07] MEDS ORDERED: AZITHROMYCIN IVPB 500 MG in DEXTROSE 5%-WATER - 250 ML IVPB ONE (01:36)
[2016-08-07] MEDS ORDERED: CEFTRIAXONE 50 ML ONE (01:56)
[2016-08-07] MEDS ORDERED: AZITHROMYCIN IVPB 250 ML IVPB ONE (01:56)
[2016-08-07 02:00] LABS: TROPONIN I 0.04 ng/ml (0.00-0.05)
--- NOTE | 2016-08-07 03:04 | PDOC ---
*Physical Exam - Vital Signs Last Vital Signs Temp Pulse Resp BP Pulse Ox 100.7 F H 93 H 20 143/62 99 08/06/16 22:40 08/06/16 21:04 08/06/16 21:04 08/06/16 21:04 08/06/16 23:21 ED Treatment Course - LABORATORY CBC & Chemistry Diagram: 08/07/16 00:06 08/07/16 00:06 - ADDITIONAL ORDERS Additional order review: Laboratory Results 08/07/16 08/07/16 08/07/16 00:06 00:06 00:06 INR 1.04 Sodium 141 Potassium 4.4 Chloride 102 Carbon Dioxide 28 Anion Gap 11 BUN 14 Creatinine 1.2 H Creat Clearance w eGFR 42.30 Random Glucose 107 H D Calcium 8.5 Total Bilirubin 0.4 AST 22 ALT 20 Alkaline Phosphatase 115 Creatine Kinase 77 Troponin I 0.04 Total Protein 6.2 L Albumin 3.2 L Urine Color Urine Appearance Urine pH Ur Specific [place] Urine Protein Urine Glucose (UA) Urine Ketones Urine Blood Urine Nitrite Urine Bilirubin Urine Urobilinogen Ur Leukocyte Esterase Urine RBC Urine WBC Ur Epithelial Cells Urine Mucus 08/06/16 23:35 INR Sodium Potassium Chloride Carbon Dioxide Anion Gap BUN Creatinine Creat Clearance w eGFR Random Glucose Calcium Total Bilirubin AST ALT Alkaline Phosphatase Creatine Kinase Troponin I Total Protein Albumin Urine Color Yellow Urine Appearance Clear Urine pH 6.0 Ur Specific [place] 1.019 Urine Protein 1+ H Urine Glucose (UA) Negative Urine Ketones Trace H Urine Blood Negative Urine Nitrite Negative Urine Bilirubin Negative Urine Urobilinogen Negative Ur Leukocyte Esterase Negative Urine RBC 1 Urine WBC 2 Ur Epithelial Cells Rare Urine Mucus Rare 08/06/16 23:10 Influenza Types A,B Antigen (OLVIN) - Final Nasopharyngeal Swab - Final 08/07/16 00:06 RBC 4.15 MCV 78.4 L MCHC 31.8 L RDW 17.9 H MPV 10.1 Neutrophils % 69.2 Lymphocytes % 16.3 Monocytes % 12.7 H Eosinophils % 0.9 Basophils % 0.9 - Medications Given in the ED: ED Medications Discontinued Medications Generic Name Dose Route Start Last Admin Trade Name Freq PRN Reason Stop Dose Admin Acetaminophen 650 mg 08/06/16 22:31 08/06/16 23:47 Tylenol - PO 08/06/16 22:32 650 mg ONCE ONE Administration Ceftriaxone Sodium 1 gm/ 50 mls @ 100 mls/hr 08/07/16 01:36 08/07/16 02:06 Dextrose IVPB 08/07/16 02:05 100 mls/hr ONCE ONE Administration Azithromycin 500 mg/ Dextrose 250 mls @ 250 mls/hr 08/07/16 01:36 08/07/16 02: 06 IVPB 08/07/16 02:35 250 mls/hr ONCE ONE Administration Medical Decision Making - Medical Decision Making 08/07/16 03:05 Spoke to Jaye Richey. Gave orders for pt admission to [facility]. *DC/Admit/Observation/Transfer Diagnosis at time of Disposition: Dyspnea on exertion, Hypoxemia - Discharge Dispostion Admit: Yes - Referrals Referrals: Veronica Gray MD [Primary Care Provider] - - Patient Instructions - Post Discharge Activity
[2016-08-07] MEDS ORDERED: ACETAMINOPHEN 325 MG TABLET (FP) PO PRN (05:14)
[2016-08-07 05:32] VITALS: BMI 25.2
[2016-08-07] MEDS ORDERED: PNEUMOC 13-VAL CONJ-DIP CRM/PF 0.5 ML DISP.SYRIN IM ONE (09:00)
[2016-08-07] MEDS ORDERED: INFLUENZA VACCINE 45 MCG/0.5 ML (MDV 16-17) IM ONE (09:00)
[2016-08-07] MEDS: ENALAPRIL MALEATE 10 MG TABLET (FP) PO SCH ×2 (09:33→21:49)
[2016-08-07] MEDS: NIFEdipine E.R 60 MG TABLET (UD) PO SCH (09:33)
[2016-08-07] MEDS: METOPROLOL SUCCINATE 25 MG TAB.SR.24H (FP) PO SCH ×2 (09:33→21:49)
[2016-08-07] MEDS: FOLIC ACID 1 MG TABLET (FP) PO SCH (09:33)
[2016-08-07] MEDS: APIXABAN 5 MG TABLET PO SCH ×2 (09:36→21:48)
--- NOTE | 2016-08-07 16:11 | HP ---
Admitting History and Physical - Primary Care Physician PCP: Jeni Yoo - Admission Chief Complaint: I was short of breath History of Present Illness: Ms Stallings is an 89 year old female who comes in after being discharged for shortness of breath. She was discharged to SNF, complained of shortness of breath there, and returned for shortness of breath. She was evaluated in the ER and admitted for pneumonia. She currently says she is short of breath. She denies fevers, chills, lightheadedness, dizziness, chest pain, nausea, vomiting , abdominal pain, or swelling. History Source: Patient Limitations to Obtaining History: No Limitations - Past Medical History Cardiovascular: Yes: HTN, Hyperlipdemia Heme/Onc: Yes: Cancer - Past Surgical History Past Surgical History: Yes: None - Smoking History Smoking history: Never smoked - Alcohol/Substance Use Hx Alcohol Use: No History of Substance Use: reports: None - Social History Usual Living Arrangement: Yes: Alone ADL: Independent History of Recent Travel: No Home Medications - Allergies Allergies/Adverse Reactions: Allergies Allergy/AdvReac Type Severity Reaction Status Date / Time No Known Allergies Allergy Verified 08/06/16 21:09 - Home Medications Home Medications: Ambulatory Orders Atorvastatin Ca [Lipitor] 40 mg PO DAILY 07/27/16 Enalapril Maleate [Vasotec] 20 mg PO BID 07/27/16 Nifedipine ER [Procardia XL -] 60 mg PO DAILY 07/27/16 Acetaminophen [Tylenol .Regular Strength -] 650 mg PO Q4H PRN #0 tablet Apixaban [Eliquis] 5 mg PO BID #60 tablet 08/06/16 Folic Acid - 1 mg PO DAILY tablet 08/06/16 Metoprolol Succinate [Toprol XL -] 25 mg PO BID tab.sr.24h 08/06/16 Family Disease History - Family Disease History Family History: Unremarkable Review of Systems Findings/Remarks: Full review of systems obtained, as per HPI and otherwise negative Physical Examination Vital Signs: Vital Signs Temperature 99.8 F H 08/07/16 15:51 Pulse Rate 94 H 08/07/16 15:51 Respiratory Rate 20 08/07/16 15:51 Blood Pressure 126/65 08/07/16 15:51 O2 Sat by Pulse Oximetry (%) 99 08/07/16 10:00 Constitutional: Yes: Well Nourished, No Distress, Calm Eyes: Yes: Conjunctiva Clear, EOM Intact HENT: Yes: Atraumatic, Normocephalic Cardiovascular: Yes: Regular Rate and Rhythm. No: Gallop, Murmur, Rub Respiratory: Yes: Regular, On Nasal O2, Rhonchi (slight, bibasilar). No: Rales , Wheezes Gastrointestinal: Yes: Normal Bowel Sounds, Soft. No: Distention, Tenderness Extremities: Yes: WNL Edema: No Labs: Laboratory Results - last 24 hr 08/06/16 08/07/16 08/07/16 23:35 00:06 00:06 WBC 6.8 RBC 4.15 Hgb 10.4 L Hct 32.5 MCV 78.4 L MCHC 31.8 L RDW 17.9 H Plt Count 222 MPV 10.1 Neutrophils % 69.2 Lymphocytes % 16.3 Monocytes % 12.7 H Eosinophils % 0.9 Basophils % 0.9 INR 1.04 Sodium Potassium Chloride Carbon Dioxide Anion Gap BUN Creatinine Creat Clearance w eGFR Random Glucose Calcium Total Bilirubin AST ALT Alkaline Phosphatase Creatine Kinase Troponin I Total Protein Albumin Urine Color Yellow Urine Appearance Clear Urine pH 6.0 Ur Specific [place] 1.019 Urine Protein 1+ H Urine Glucose (UA) Negative Urine Ketones Trace H Urine Blood Negative Urine Nitrite Negative Urine Bilirubin Negative Urine Urobilinogen Negative Ur Leukocyte Esterase Negative Urine RBC 1 Urine WBC 2 Ur Epithelial Cells Rare Urine Mucus Rare 08/07/16 08/07/16 00:06 00:06 WBC RBC Hgb Hct MCV MCHC RDW Plt Count MPV Neutrophils % Lymphocytes % Monocytes % Eosinophils % Basophils % INR Sodium 141 Potassium 4.4 Chloride 102 Carbon Dioxide 28 Anion Gap 11 BUN 14 Creatinine 1.2 H Creat Clearance w eGFR 42.30 Random Glucose 107 H D Calcium 8.5 Total Bilirubin 0.4 AST 22 ALT 20 Alkaline Phosphatase 115 Creatine Kinase 77 Troponin I 0.04 Total Protein 6.2 L Albumin 3.2 L Urine Color Urine Appearance Urine pH Ur Specific [place] Urine Protein Urine Glucose (UA) Urine Ketones Urine Blood Urine Nitrite Urine Bilirubin Urine Urobilinogen Ur Leukocyte Esterase Urine RBC Urine WBC Ur Epithelial Cells Urine Mucus Imaging - Results Chest X-ray: Report Reviewed, Image Reviewed Cat Scan: Report Reviewed Problem List - Problems (1) Atelectasis Assessment/Plan: -patient has atelectasis, at this point do not think it is pneumonia -will not continue antibiotics currently -however if has recurrent fevers, leukocytosis, or any signs of sepsis will obtain cultures and start antibiotics -incentive spirometer -patient complains of shortness of breath but appears comfortable -patient has been reluctant to leave the hospital, suspect aspect of anxiety -if remains stable, plan for discharge back to [facility] tomorrow -will add prn albuterol Code(s): J98.11 - ATELECTASIS (2) DVT (deep venous thrombosis) Assessment/Plan: -continue eliquis Code(s): I82.409 - ACUTE EMBOLISM AND THOMBOS UNSP DEEP VN UNSP LOWER EXTREMITY (3) HLD (hyperlipidemia) Assessment/Plan: -continue lipitor Code(s): E78.5 - HYPERLIPIDEMIA, UNSPECIFIED (4) HTN (hypertension) Assessment/Plan: -continue enalapril, toprol xl, and nifedipine Code(s): I10 - ESSENTIAL (PRIMARY) HYPERTENSION (5) Atrial fibrillation Assessment/Plan: -currently sounds in sinus rhythm -continue eliquis Code(s): I48.91 - UNSPECIFIED ATRIAL FIBRILLATION Qualifiers: Atrial fibrillation type: paroxysmal Qualified Code(s): I48.0 - Paroxysmal atrial fibrillation
[2016-08-07] MEDS ORDERED: ALBUTEROL SO4 2.5/IPRATROPIUM 0.5 INH SOL 3 ML VIAL.NEB. NEB PRN (16:24)
[2016-08-07] MEDS: ATORVASTATIN CA 40 MG TABLET (FP) PO SCH (21:49)
[2016-08-08 07:43] LABS: BASOPHIL 0.4 % (0-2.0); EOSINOPHIL 3.2 % (0-4.5); MCHC 31.7 g/dl (32.0-36.0); MEAN PLT VOLUME 10.4 fl (7.5-11.1); NEUTROPHILS 57.9 % (42.8-82.8); PLATELET COUNT 195 K/MM3 (134-434); RDW 17.7 % (11.6-15.6); WHITE BLOOD COUNT 6.5 K/mm3 (4.0-10.0)
[2016-08-08 08:24] LABS: CALCIUM 8.6 mg/dL (8.5-10.1); CREATININE 1.1 mg/dL (0.55-1.02); PHOSPHOROUS 3.8 mg/dL (2.5-4.9)
[2016-08-08] MEDS: APIXABAN 5 MG TABLET PO SCH ×2 (09:55→21:27)
[2016-08-08] MEDS: ENALAPRIL MALEATE 10 MG TABLET (FP) PO SCH ×2 (09:55→21:27)
[2016-08-08] MEDS: METOPROLOL SUCCINATE 25 MG TAB.SR.24H (FP) PO SCH ×2 (09:57→21:27)
[2016-08-08] MEDS: FOLIC ACID 1 MG TABLET (FP) PO SCH (09:57)
[2016-08-08] MEDS: NIFEdipine E.R 60 MG TABLET (UD) PO SCH (09:57)
[2016-08-08] MEDS ORDERED: LEVOFLOXACIN 500 MG IVPB 100 ML IVPB ONE (12:52)
--- NOTE | 2016-08-08 13:03 | PN ---
Progress Note, Physician Chief Complaint: Coughing and still SOB especially when moving. History of Present Illness: Patient readmitted from SNF with SOB and cough. Given aerosol Rx but still uncomfortable with cough and SOB when OOB. Chest CAT Scan: No PE but she has an infiltrate/atelectasis noted. Hx DVT, A.Fibrillation and Hypertension on Rx. Moving bowels No frequency or dysuria so I will not Give Rx for Urine C/S noted on EMR. On Exam: Vital Signs Period Temp Pulse Resp BP Sys/Galvez Pulse Ox Last 24 Hr 98.9 F-99.9 F 74-94 18-22 115-130/50-65 94-94 Alert Coughing Chest scattered rhonchi and wheezes left> right side Cor: Irreg Abd: Soft Ext: Excoriations right ant. tibia Abnormal Lab Results 08/08/16 08/08/16 06:15 06:15 Hgb 10.1 L Hct 31.8 L MCV 79.0 L MCHC 31.7 L RDW 17.7 H Monocytes % 14.7 H Creatinine 1.1 H IMP: Acute Bronchitis A.Fib on Rx Hypertension on Rx DVT on Rx Positive urine C/S but not active infection clinically Plan: I will give Levaquin IVPB X1 today and F/U F/U lab Cough syrup Aerosol Rx - Current Medication List Current Medications: Active Medications Acetaminophen (Tylenol -) 650 mg PO Q4H PRN PRN Reason: FEVER OR PAIN Albuterol/Ipratropium (Duoneb -) 1 amp NEB Q6H PRN PRN Reason: SHORTNESS OF BREATH Apixaban (Eliquis -) 5 mg PO BID [facility] Last Admin: 08/08/16 09:55 Dose: 5 mg Atorvastatin Calcium (Lipitor -) 40 mg PO HS [facility] Last Admin: 08/07/16 21:49 Dose: 40 mg Enalapril Maleate (Vasotec -) 20 mg PO BID [facility] Last Admin: 08/08/16 09:55 Dose: 20 mg Folic Acid (Folic Acid -) 1 mg PO DAILY [facility] Last Admin: 08/08/16 09:57 Dose: 1 mg Levofloxacin (Levaquin 500 Mg Premixed Ivpb -) 100 mls @ 100 mls/hr IVPB ONCE ONE Stop: 08/08/16 13:51 Metoprolol Succinate (Toprol Xl -) 25 mg PO BID [facility] Last Admin: 08/08/16 09:57 Dose: 25 mg Nifedipine (Procardia Xl -) 60 mg PO DAILY [facility] Last Admin: 08/08/16 09:57 Dose: 60 mg - Objective Vital Signs: Vital Signs Temperature 98.9 F 08/08/16 08:50 Pulse Rate 76 08/08/16 10:08 Respiratory Rate 20 08/08/16 10:08 Blood Pressure 125/64 08/08/16 10:08 O2 Sat by Pulse Oximetry (%) 94 L 08/08/16 09:00 Labs: CBC, BMP 08/08/16 06:15 08/08/16 06:15 INR, PTT INR 1.04 (0.82-1.09) 08/07/16 00:06
[2016-08-08] MEDS: guaiFENesin 200 MG/10 ML 10 ML UNIT-DOSE CUPS PO PRN ×2 (13:21→21:29)
[2016-08-08] MEDS: ALBUTEROL SO4 0.083% IH SOL 2.5 MG/3 ML VIAL.NEB. NEB SCH ×2 (14:25→22:20)
[2016-08-08] MEDS: ATORVASTATIN CA 40 MG TABLET (FP) PO SCH (21:27)
[2016-08-09] MEDS: ALBUTEROL SO4 0.083% IH SOL 2.5 MG/3 ML VIAL.NEB. NEB SCH ×3 (06:13→22:05)
[2016-08-09 08:12] LABS: BASOPHIL 0.3 % (0-2.0); EOSINOPHIL 2.5 % (0-4.5); MCH 25.2 pg (25.7-33.7); MCHC 31.9 g/dl (32.0-36.0); MEAN CELL VOLUME 79.2 fl (80-96); MEAN PLT VOLUME 10.1 fl (7.5-11.1); NEUTROPHILS 47.4 % (42.8-82.8); PLATELET COUNT 186 K/MM3 (134-434); RDW 17.7 % (11.6-15.6); WHITE BLOOD COUNT 5.4 K/mm3 (4.0-10.0)
[2016-08-09] MEDS: guaiFENesin 200 MG/10 ML 10 ML UNIT-DOSE CUPS PO PRN ×2 (10:01→21:18)
[2016-08-09] MEDS: NIFEdipine E.R 60 MG TABLET (UD) PO SCH (10:02)
[2016-08-09] MEDS: FOLIC ACID 1 MG TABLET (FP) PO SCH (10:02)
[2016-08-09] MEDS: ENALAPRIL MALEATE 10 MG TABLET (FP) PO SCH ×2 (10:02→21:18)
[2016-08-09] MEDS: APIXABAN 5 MG TABLET PO SCH ×2 (10:07→21:18)
[2016-08-09] MEDS: METOPROLOL SUCCINATE 25 MG TAB.SR.24H (FP) PO SCH ×2 (10:09→21:18)
[2016-08-09 11:08] LABS: ERYTHROCYTE SEDIMENTATION RATE 40 mm/hr (0-30)
--- NOTE | 2016-08-09 12:55 | PN ---
Progress Note, Physician Chief Complaint: Still SOB, coughing and some tremors. History of Present Illness: Patient with readmission from SNF for SOB and cough. Workup revealed pulmonary infiltrate/ atelectasis and she is still coughing and has some tremors after albuterol. Also Hx: A. Fib, DVT, Parotid tumor and Hypertension on Rx. Some ear pain today and coughing and I will restart levaquin. Patient anxious. - Current Medication List Current Medications: Active Medications Acetaminophen (Tylenol -) 650 mg PO Q4H PRN PRN Reason: FEVER OR PAIN Albuterol Sulfate (Ventolin 0.083% Nebulizer Soln -) 1 amp NEB TIDR [facility] Last Admin: 08/09/16 06:13 Dose: 1 amp Apixaban (Eliquis -) 5 mg PO BID [facility] Last Admin: 08/09/16 10:07 Dose: 5 mg Atorvastatin Calcium (Lipitor -) 40 mg PO HS [facility] Last Admin: 08/08/16 21:27 Dose: 40 mg Enalapril Maleate (Vasotec -) 20 mg PO BID [facility] Last Admin: 08/09/16 10:02 Dose: 20 mg Folic Acid (Folic Acid -) 1 mg PO DAILY [facility] Last Admin: 08/09/16 10:02 Dose: 1 mg Guaifenesin (Robitussin -) 10 ml PO Q6H PRN PRN Reason: COUGH Last Admin: 08/09/16 10:01 Dose: 10 ml Metoprolol Succinate (Toprol Xl -) 25 mg PO BID [facility] Last Admin: 08/09/16 10:09 Dose: 25 mg Nifedipine (Procardia Xl -) 60 mg PO DAILY [facility] Last Admin: 08/09/16 10:02 Dose: 60 mg - Objective Vital Signs: Vital Signs Temperature 98.8 F 08/09/16 08:47 Pulse Rate 76 08/09/16 08:47 Respiratory Rate 20 08/09/16 09:00 Blood Pressure 124/66 08/09/16 08:47 O2 Sat by Pulse Oximetry (%) 93 L 08/09/16 09:00 Constitutional: Yes: Anxious HENT: Yes: Other (pain left ear; Otoscope: erythema) Cardiovascular: Yes: Regular Rate and Rhythm (84/min), Pulse Irregular Respiratory: Yes: Dullness, Rhonchi (right and left side) Gastrointestinal: Yes: Soft. No: Tenderness Genitourinary: No: Erwin Present Edema: LLE: Trace, RLE: Trace Neurological: Yes: Alert, Oriented Labs: CBC, BMP 08/09/16 07:17 08/08/16 06:15 INR, PTT INR 1.04 (0.82-1.09) 08/07/16 00:06 Problem List - Problems (1) Pneumonia Assessment/Plan: Will persisting cough and infiltrate/atelectasis on Chest CT I will continue levoquin Rx. I dont think Urine C/S is acute UTI. Code(s): J18.9 - PNEUMONIA, UNSPECIFIED ORGANISM (2) Atrial fibrillation Assessment/Plan: On Eliquis Rx Code(s): I48.91 - UNSPECIFIED ATRIAL FIBRILLATION Qualifiers: Atrial fibrillation type: paroxysmal Qualified Code(s): I48.0 - Paroxysmal atrial fibrillation (3) Dyspnea on exertion Assessment/Plan: with cough Code(s): R06.09 - OTHER FORMS OF DYSPNEA (4) DVT (deep venous thrombosis) Assessment/Plan: On Eliquis Code(s): I82.409 - ACUTE EMBOLISM AND THOMBOS UNSP DEEP VN UNSP LOWER EXTREMITY (5) HTN (hypertension) Assessment/Plan: Stable readings. Code(s): I10 - ESSENTIAL (PRIMARY) HYPERTENSION (6) Muscle tremor Assessment/Plan: ??due to meds or essential tremor. Code(s): R25.1 - TREMOR, UNSPECIFIED (7) Earache on left Assessment/Plan: Erythema noted on left side; will rx. 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 Code(s): D49.0 - NEOPLASM OF UNSPECIFIED BEHAVIOR OF DIGESTIVE SYSTEM
[2016-08-09] MEDS: NEOMYCIN/POLYMYXN/HC OTIC SUSPENSION 10 ML BOTTLE AS ONE ×2 (13:00→16:58)
[2016-08-09] MEDS: LEVOFLOXACIN 500 MG TABLET (FP) PO SCH (14:03)
[2016-08-09] MEDS: ATORVASTATIN CA 40 MG TABLET (FP) PO SCH (21:18)
[2016-08-10] MEDS: LEVOFLOXACIN 500 MG TABLET (FP) PO SCH (06:33)
[2016-08-10 07:51] LABS: BASOPHIL 0.5 % (0-2.0); EOSINOPHIL 3.8 % (0-4.5); MCH 24.7 pg (25.7-33.7); MCHC 31.3 g/dl (32.0-36.0); MEAN CELL VOLUME 78.9 fl (80-96); MEAN PLT VOLUME 9.9 fl (7.5-11.1); NEUTROPHILS 58.4 % (42.8-82.8); PLATELET COUNT 209 K/MM3 (134-434); RDW 17.6 % (11.6-15.6); WHITE BLOOD COUNT 5.2 K/mm3 (4.0-10.0)
[2016-08-10] MEDS: FOLIC ACID 1 MG TABLET (FP) PO SCH (10:57)
[2016-08-10] MEDS: NIFEdipine E.R 60 MG TABLET (UD) PO SCH (10:57)
[2016-08-10] MEDS: ENALAPRIL MALEATE 10 MG TABLET (FP) PO SCH ×2 (10:57→22:27)
[2016-08-10] MEDS: APIXABAN 5 MG TABLET PO SCH ×2 (10:57→22:25)
[2016-08-10] MEDS: METOPROLOL SUCCINATE 25 MG TAB.SR.24H (FP) PO SCH ×2 (10:57→22:27)
--- NOTE | 2016-08-10 13:39 | EKG ---
Test Reason : Blood Pressure : / mmHG Vent. Rate : 092 BPM Atrial Rate : 092 BPM P-R Int : 150 ms QRS Dur : 074 ms QT Int : 334 ms P-R-T Axes : 057 008 011 degrees QTc Int : 413 ms POOR DATA QUALITY, INTERPRETATION MAY BE ADVERSELY AFFECTED SINUS RHYTHM WITH PREMATURE ATRIAL COMPLEXES OTHERWISE NORMAL ECG WHEN COMPARED WITH ECG OF 28-JUL-2016 12:22, NO SIGNIFICANT CHANGE WAS FOUND Confirmed by DESTINI NG MD ([id number]) on 08/10/2016 1:39:33 PM Referred By: Confirmed By:DESTINI NG MD
[2016-08-10] MEDS: ALBUTEROL SO4 0.083% IH SOL 2.5 MG/3 ML VIAL.NEB. NEB SCH (14:01)
--- NOTE | 2016-08-10 15:56 | PN ---
Progress Note, Physician Chief Complaint: Ms Stallings says she is coughing and wheezing. Is not short of breath. No cp or n/v. - Current Medication List Current Medications: Active Medications Acetaminophen (Tylenol -) 650 mg PO Q4H PRN PRN Reason: FEVER OR PAIN Albuterol/Ipratropium (Duoneb -) 1 amp NEB TIDR [facility] Apixaban (Eliquis -) 5 mg PO BID [facility] Last Admin: 08/10/16 10:57 Dose: 5 mg Atorvastatin Calcium (Lipitor -) 40 mg PO HS [facility] Last Admin: 08/09/16 21:18 Dose: 40 mg Enalapril Maleate (Vasotec -) 20 mg PO BID [facility] Last Admin: 08/10/16 10:57 Dose: 20 mg Folic Acid (Folic Acid -) 1 mg PO DAILY [facility] Last Admin: 08/10/16 10:57 Dose: 1 mg Guaifenesin (Robitussin -) 10 ml PO Q6H PRN PRN Reason: COUGH Last Admin: 08/09/16 21:18 Dose: 10 ml Levofloxacin (Levaquin -) 500 mg PO DAILY@0600 [facility] Last Admin: 08/10/16 06:33 Dose: 500 mg Metoprolol Succinate (Toprol Xl -) 25 mg PO BID [facility] Last Admin: 08/10/16 10:57 Dose: 25 mg Nifedipine (Procardia Xl -) 60 mg PO DAILY [facility] Last Admin: 08/10/16 10:57 Dose: 60 mg - Objective Vital Signs: Vital Signs Temperature 98.4 F 08/10/16 15:39 Pulse Rate 72 08/10/16 15:39 Respiratory Rate 20 08/10/16 15:39 Blood Pressure 110/55 08/10/16 15:39 O2 Sat by Pulse Oximetry (%) 95 08/10/16 11:31 Constitutional: Yes: Well Nourished, No Distress, Calm Cardiovascular: Yes: Regular Rate and Rhythm. No: Gallop, Murmur, Rub Respiratory: Yes: Regular, On Nasal O2, Wheezes. No: Rales, Rhonchi Gastrointestinal: Yes: Normal Bowel Sounds, Soft. No: Distention, Tenderness Extremities: Yes: WNL Edema: No Labs: CBC, BMP 08/10/16 06:05 08/08/16 06:15 INR, PTT INR 1.04 (0.82-1.09) 08/07/16 00:06 Problem List - Problems (1) Bronchitis Code(s): J40 - BRONCHITIS, NOT SPECIFIED ACUTE OR CHRONIC (2) DVT (deep venous thrombosis) Code(s): I82.409 - ACUTE EMBOLISM AND THOMBOS UNSP DEEP VN UNSP LOWER EXTREMITY (3) HLD (hyperlipidemia) Code(s): E78.5 - HYPERLIPIDEMIA, UNSPECIFIED (4) HTN (hypertension) Code(s): I10 - ESSENTIAL (PRIMARY) HYPERTENSION (5) Atrial fibrillation Code(s): I48.91 - UNSPECIFIED ATRIAL FIBRILLATION Qualifiers: Atrial fibrillation type: paroxysmal Qualified Code(s): I48.0 - Paroxysmal atrial fibrillation Assessment/Plan (1) Bronchitis Assessment/Plan: -patient with significant wheezing on exam, change from prior -will continue levaquin for bronchitis -change albuterol to duonebs -add low dose prednisone -monitor for improvement Code(s): J98.11 - ATELECTASIS (2) DVT (deep venous thrombosis) Assessment/Plan: -continue eliquis Code(s): I82.409 - ACUTE EMBOLISM AND THOMBOS UNSP DEEP VN UNSP LOWER EXTREMITY (3) HLD (hyperlipidemia) Assessment/Plan: -continue lipitor Code(s): E78.5 - HYPERLIPIDEMIA, UNSPECIFIED (4) HTN (hypertension) Assessment/Plan: -continue enalapril, toprol xl, and nifedipine Code(s): I10 - ESSENTIAL (PRIMARY) HYPERTENSION (5) Atrial fibrillation Assessment/Plan: -currently sounds in sinus rhythm -continue eliquis Code(s): I48.91 - UNSPECIFIED ATRIAL FIBRILLATION Qualifiers: Atrial fibrillation type: paroxysmal Qualified Code(s): I48.0 - Paroxysmal atrial fibrillation
[2016-08-10] MEDS: predniSONE 20 MG TABLET (UD) PO SCH (17:56)
[2016-08-10] MEDS ORDERED: PT OWN MED DRAWER 7, Y5N ONE (20:39)
[2016-08-10] MEDS: ALBUTEROL SO4 2.5/IPRATROPIUM 0.5 INH SOL 3 ML VIAL.NEB. NEB SCH (21:42)
[2016-08-10] MEDS: ATORVASTATIN CA 40 MG TABLET (FP) PO SCH (22:26)
[2016-08-11] MEDS: LEVOFLOXACIN 500 MG TABLET (FP) PO SCH (06:29)
[2016-08-11] MEDS: ALBUTEROL SO4 2.5/IPRATROPIUM 0.5 INH SOL 3 ML VIAL.NEB. NEB SCH ×3 (06:45→21:44)
[2016-08-11] MEDS ORDERED: PT OWN MED DRAWER 7, Y5N ONE ×3 (07:09→20:51)
[2016-08-11] MEDS: FOLIC ACID 1 MG TABLET (FP) PO SCH (09:40)
[2016-08-11] MEDS: NIFEdipine E.R 60 MG TABLET (UD) PO SCH (09:40)
[2016-08-11] MEDS: APIXABAN 5 MG TABLET PO SCH ×2 (09:40→22:35)
[2016-08-11] MEDS: METOPROLOL SUCCINATE 25 MG TAB.SR.24H (FP) PO SCH ×2 (09:40→22:36)
[2016-08-11] MEDS: ENALAPRIL MALEATE 10 MG TABLET (FP) PO SCH ×2 (09:41→22:37)
[2016-08-11] MEDS: predniSONE 20 MG TABLET (UD) PO SCH (09:41)
[2016-08-11] MEDS: POLYETHYLENE GLYCOL 3350 119 GM BTL PO SCH ×2 (14:22→22:36)
[2016-08-11] MEDS: DOCUSATE SODIUM 100 MG CAPSULE (FP) PO SCH ×2 (14:22→22:35)
--- NOTE | 2016-08-11 16:31 | PN ---
Progress Note, Physician Chief Complaint: Ms Stallings says she is coughing less today and feeling better. No cp, sob, n/ v. - Current Medication List Current Medications: Active Medications Acetaminophen (Tylenol -) 650 mg PO Q4H PRN PRN Reason: FEVER OR PAIN Albuterol/Ipratropium (Duoneb -) 1 amp NEB TIDR [facility] Last Admin: 08/11/16 13:15 Dose: 1 amp Apixaban (Eliquis -) 5 mg PO BID [facility] Last Admin: 08/11/16 09:40 Dose: 5 mg Atorvastatin Calcium (Lipitor -) 40 mg PO HS [facility] Last Admin: 08/10/16 22:26 Dose: 40 mg Docusate Sodium (Colace -) 100 mg PO BID [facility] Last Admin: 08/11/16 14:22 Dose: 100 mg Enalapril Maleate (Vasotec -) 20 mg PO BID [facility] Last Admin: 08/11/16 09:41 Dose: 20 mg Folic Acid (Folic Acid -) 1 mg PO DAILY [facility] Last Admin: 08/11/16 09:40 Dose: 1 mg Guaifenesin (Robitussin -) 10 ml PO Q6H PRN PRN Reason: COUGH Last Admin: 08/09/16 21:18 Dose: 10 ml Metoprolol Succinate (Toprol Xl -) 25 mg PO BID [facility] Last Admin: 08/11/16 09:40 Dose: 25 mg Nifedipine (Procardia Xl -) 60 mg PO DAILY [facility] Last Admin: 08/11/16 09:40 Dose: 60 mg Polyethylene Glycol (Miralax (For Daily Use) -) 17 gm PO BID [facility] Last Admin: 08/11/16 14:22 Dose: 17 gm Prednisone (Deltasone -) 20 mg PO DAILY [facility] Last Admin: 08/11/16 09:41 Dose: 20 mg - Objective Vital Signs: Vital Signs Temperature 99.2 F 08/11/16 15:33 Pulse Rate 88 08/11/16 15:33 Respiratory Rate 20 08/11/16 15:33 Blood Pressure 126/65 08/11/16 15:33 O2 Sat by Pulse Oximetry (%) 82 L 08/11/16 14:10 Constitutional: Yes: Well Nourished, No Distress, Calm HENT: Yes: Other (L facial mass) Cardiovascular: Yes: Regular Rate and Rhythm. No: Gallop, Murmur, Rub Respiratory: Yes: Regular, On Nasal O2, Wheezes (much improved). No: Rales, Rhonchi Gastrointestinal: Yes: Normal Bowel Sounds, Soft. No: Distention, Tenderness Extremities: Yes: WNL Edema: No Labs: CBC, BMP 08/10/16 06:05 08/08/16 06:15 INR, PTT INR 1.04 (0.82-1.09) 08/07/16 00:06 Problem List - Problems (1) Bronchitis Code(s): J40 - BRONCHITIS, NOT SPECIFIED ACUTE OR CHRONIC (2) DVT (deep venous thrombosis) Code(s): I82.409 - ACUTE EMBOLISM AND THOMBOS UNSP DEEP VN UNSP LOWER EXTREMITY (3) HLD (hyperlipidemia) Code(s): E78.5 - HYPERLIPIDEMIA, UNSPECIFIED (4) HTN (hypertension) Code(s): I10 - ESSENTIAL (PRIMARY) HYPERTENSION (5) Atrial fibrillation Code(s): I48.91 - UNSPECIFIED ATRIAL FIBRILLATION Qualifiers: Atrial fibrillation type: paroxysmal Qualified Code(s): I48.0 - Paroxysmal atrial fibrillation Assessment/Plan (1) Bronchitis Assessment/Plan: -improving -continue prednisone 20mg daily, day 2 -continue duonebs -will stop antibiotics -pre and post to evaluate if needs oxygen Code(s): J98.11 - ATELECTASIS (2) DVT (deep venous thrombosis) Assessment/Plan: -continue eliquis Code(s): I82.409 - ACUTE EMBOLISM AND THOMBOS UNSP DEEP VN UNSP LOWER EXTREMITY (3) HLD (hyperlipidemia) Assessment/Plan: -continue lipitor Code(s): E78.5 - HYPERLIPIDEMIA, UNSPECIFIED (4) HTN (hypertension) Assessment/Plan: -continue enalapril, toprol xl, and nifedipine Code(s): I10 - ESSENTIAL (PRIMARY) HYPERTENSION (5) Atrial fibrillation Assessment/Plan: -currently sounds in sinus rhythm -continue eliquis Code(s): I48.91 - UNSPECIFIED ATRIAL FIBRILLATION Qualifiers: Atrial fibrillation type: paroxysmal Qualified Code(s): I48.0 - Paroxysmal atrial fibrillation Dispo -possible discharge tomorrow -patient still resistant about discharge, when broached she continues to extend her stay here -if lung exam improved and can wean off oxygen, discharge to SNF tomorrow
[2016-08-11] MEDS: ATORVASTATIN CA 40 MG TABLET (FP) PO SCH (22:36)
[2016-08-12] MEDS: guaiFENesin 200 MG/10 ML 10 ML UNIT-DOSE CUPS PO PRN (06:15)
[2016-08-12] MEDS: ALBUTEROL SO4 2.5/IPRATROPIUM 0.5 INH SOL 3 ML VIAL.NEB. NEB SCH ×3 (06:25→21:50)
[2016-08-12 07:01] LABS: BASOPHIL 0.1 % (0-2.0); EOSINOPHIL 0.3 % (0-4.5); MCH 24.9 pg (25.7-33.7); MCHC 31.4 g/dl (32.0-36.0); MEAN CELL VOLUME 79.4 fl (80-96); MEAN PLT VOLUME 9.9 fl (7.5-11.1); NEUTROPHILS 75.4 % (42.8-82.8); PLATELET COUNT 242 K/MM3 (134-434); RDW 17.5 % (11.6-15.6)
[2016-08-12 07:41] LABS: CALCIUM 8.5 mg/dL (8.5-10.1); CREATININE 1.2 mg/dL (0.55-1.02); PHOSPHOROUS 3.7 mg/dL (2.5-4.9)
[2016-08-12] MEDS ORDERED: PT OWN MED DRAWER 7, Y5N ONE ×3 (09:47→22:46)
[2016-08-12] MEDS: NIFEdipine E.R 60 MG TABLET (UD) PO SCH (10:37)
[2016-08-12] MEDS: FOLIC ACID 1 MG TABLET (FP) PO SCH (10:37)
[2016-08-12] MEDS: predniSONE 20 MG TABLET (UD) PO SCH (10:37)
[2016-08-12] MEDS: ENALAPRIL MALEATE 10 MG TABLET (FP) PO SCH ×2 (10:37→23:11)
[2016-08-12] MEDS: METOPROLOL SUCCINATE 25 MG TAB.SR.24H (FP) PO SCH ×2 (10:37→23:11)
[2016-08-12] MEDS: APIXABAN 5 MG TABLET PO SCH ×2 (10:38→23:11)
[2016-08-12] MEDS: DOCUSATE SODIUM 100 MG CAPSULE (FP) PO SCH ×2 (10:38→23:11)
[2016-08-12] MEDS: POLYETHYLENE GLYCOL 3350 119 GM BTL PO SCH ×2 (10:41→23:11)
[2016-08-12] MEDS: methylPREDNISolone NA SUCC 40 MG/1 ML VIAL IVPB SCH ×3 (16:12→23:11)
--- NOTE | 2016-08-12 16:37 | PN ---
Progress Note, Physician Chief Complaint: Ms Stallings still with wheezing and coughing. No cp, sob, n/v. - Current Medication List Current Medications: Active Medications Acetaminophen (Tylenol -) 650 mg PO Q4H PRN PRN Reason: FEVER OR PAIN Albuterol/Ipratropium (Duoneb -) 1 amp NEB TIDR [facility] Last Admin: 08/12/16 13:30 Dose: 1 amp Apixaban (Eliquis -) 5 mg PO BID [facility] Last Admin: 08/12/16 10:38 Dose: 5 mg Atorvastatin Calcium (Lipitor -) 40 mg PO HS [facility] Last Admin: 08/11/16 22:36 Dose: 40 mg Docusate Sodium (Colace -) 100 mg PO BID [facility] Last Admin: 08/12/16 10:38 Dose: 100 mg Enalapril Maleate (Vasotec -) 20 mg PO BID [facility] Last Admin: 08/12/16 10:37 Dose: 20 mg Folic Acid (Folic Acid -) 1 mg PO DAILY [facility] Last Admin: 08/12/16 10:37 Dose: 1 mg Guaifenesin (Robitussin -) 10 ml PO Q6H PRN PRN Reason: COUGH Last Admin: 08/12/16 06:15 Dose: 10 ml Methylprednisolone Sodium Succinate (Solu-Medrol -) 40 mg IVPB Q6H-IV [facility] Last Admin: 08/12/16 16:12 Dose: Not Given Metoprolol Succinate (Toprol Xl -) 25 mg PO BID [facility] Last Admin: 08/12/16 10:37 Dose: 25 mg Nifedipine (Procardia Xl -) 60 mg PO DAILY [facility] Last Admin: 08/12/16 10:37 Dose: 60 mg Polyethylene Glycol (Miralax (For Daily Use) -) 17 gm PO BID [facility] Last Admin: 08/12/16 10:41 Dose: 17 gm - Objective Vital Signs: Vital Signs Temperature 98.5 F 08/12/16 14:45 Pulse Rate 77 08/12/16 14:45 Respiratory Rate 20 08/12/16 14:45 Blood Pressure 133/63 08/12/16 14:45 O2 Sat by Pulse Oximetry (%) 92 L 08/12/16 13:30 Constitutional: Yes: Well Nourished, No Distress, Calm Cardiovascular: Yes: Regular Rate and Rhythm. No: Gallop, Murmur, Rub Respiratory: Yes: Regular, On Nasal O2, Wheezes. No: Rales, Rhonchi Gastrointestinal: Yes: Normal Bowel Sounds, Soft. No: Distention, Tenderness Extremities: Yes: WNL Edema: No Labs: CBC, BMP 08/12/16 06:50 08/12/16 06:50 INR, PTT INR 1.04 (0.82-1.09) 08/07/16 00:06 Problem List - Problems (1) Bronchitis Code(s): J40 - BRONCHITIS, NOT SPECIFIED ACUTE OR CHRONIC (2) DVT (deep venous thrombosis) Code(s): I82.409 - ACUTE EMBOLISM AND THOMBOS UNSP DEEP VN UNSP LOWER EXTREMITY (3) HLD (hyperlipidemia) Code(s): E78.5 - HYPERLIPIDEMIA, UNSPECIFIED (4) HTN (hypertension) Code(s): I10 - ESSENTIAL (PRIMARY) HYPERTENSION (5) Atrial fibrillation Code(s): I48.91 - UNSPECIFIED ATRIAL FIBRILLATION Qualifiers: Atrial fibrillation type: paroxysmal Qualified Code(s): I48.0 - Paroxysmal atrial fibrillation Assessment/Plan (1) Bronchitis Assessment/Plan: -secondary to RSV -worsened today -will change prednisone to solumedrol -continue duonebs -still requiring oxygen Code(s): J98.11 - ATELECTASIS (2) DVT (deep venous thrombosis) Assessment/Plan: -continue eliquis Code(s): I82.409 - ACUTE EMBOLISM AND THOMBOS UNSP DEEP VN UNSP LOWER EXTREMITY (3) HLD (hyperlipidemia) Assessment/Plan: -continue lipitor Code(s): E78.5 - HYPERLIPIDEMIA, UNSPECIFIED (4) HTN (hypertension) Assessment/Plan: -continue enalapril, toprol xl, and nifedipine Code(s): I10 - ESSENTIAL (PRIMARY) HYPERTENSION (5) Atrial fibrillation Assessment/Plan: -currently sounds in sinus rhythm -continue eliquis Code(s): I48.91 - UNSPECIFIED ATRIAL FIBRILLATION Qualifiers: Atrial fibrillation type: paroxysmal Qualified Code(s): I48.0 - Paroxysmal atrial fibrillation
[2016-08-12] MEDS: ATORVASTATIN CA 40 MG TABLET (FP) PO SCH (23:11)
[2016-08-13] MEDS: methylPREDNISolone NA SUCC 40 MG/1 ML VIAL IVPB SCH ×4 (02:55→21:08)
[2016-08-13] MEDS: ALBUTEROL SO4 2.5/IPRATROPIUM 0.5 INH SOL 3 ML VIAL.NEB. NEB SCH ×3 (05:24→22:41)
[2016-08-13 07:36] LABS: MCH 24.9 pg (25.7-33.7); MCHC 31.3 g/dl (32.0-36.0); MEAN CELL VOLUME 79.4 fl (80-96); MEAN PLT VOLUME 9.7 fl (7.5-11.1); PLATELET COUNT 259 K/MM3 (134-434); RDW 17.9 % (11.6-15.6); WHITE BLOOD COUNT 8.8 K/mm3 (4.0-10.0)
[2016-08-13 08:01] LABS: CALCIUM 8.5 mg/dL (8.5-10.1); CREATININE 1.3 mg/dL (0.55-1.02); MAGNESIUM 2.1 mg/dL (1.8-2.4); PHOSPHOROUS 3.7 mg/dL (2.5-4.9)
[2016-08-13 08:27] LABS: NEUTROPHILS 91.2 % (42.8-82.8)
[2016-08-13] MEDS ORDERED: PT OWN MED DRAWER 7, Y5N ONE ×4 (09:22→21:05)
[2016-08-13] MEDS: APIXABAN 5 MG TABLET PO SCH ×2 (09:25→21:08)
[2016-08-13] MEDS: NIFEdipine E.R 60 MG TABLET (UD) PO SCH (09:25)
[2016-08-13] MEDS: FOLIC ACID 1 MG TABLET (FP) PO SCH (09:25)
[2016-08-13] MEDS: METOPROLOL SUCCINATE 25 MG TAB.SR.24H (FP) PO SCH ×2 (09:25→21:09)
[2016-08-13] MEDS: ENALAPRIL MALEATE 10 MG TABLET (FP) PO SCH ×2 (09:26→21:08)
[2016-08-13] MEDS: DOCUSATE SODIUM 100 MG CAPSULE (FP) PO SCH ×2 (09:27→21:08)
[2016-08-13] MEDS: POLYETHYLENE GLYCOL 3350 119 GM BTL PO SCH ×2 (09:27→21:09)
--- NOTE | 2016-08-13 10:04 | PN ---
Progress Note (short form) - Note Progress Note: Patient seen and examined Chart reviewed. Currently sitting up in bed, alert and appropriate.. Cough persists with expiratory wheezing. Denies new chest discomfort palpitations or pre-syncope. Labs and medication list reviewed Selected Entries 08/12/16 08/13/16 21:00 09:07 Temperature 98.4 F Pulse Rate 80 Respiratory 20 Rate Blood Pressure 123/55 O2 Sat by Pulse 95 Oximetry (%) Oxygen Delivery Nasal Cannula Method Oxygen Flow 2 Rate Laboratory Tests 08/13/16 08/13/16 07:00 07:00 WBC 8.8 Hgb 10.0 L Hct 32.0 L Plt Count 259 Sodium 142 Potassium 4.8 Chloride 105 Carbon Dioxide 26 BUN 27 H Creatinine 1.3 H Random Glucose 129 H D Calcium 8.5 Phosphorus 3.7 Magnesium 2.1 Chest Diffuse expiratory wheezing Minimal rhonchi No rales No accessory muscle use Cor RRR Abd Soft non-tender Left pre-auricular facial mass unchanged according to the patient 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 Fe and Ferritin noted On NOAC as noted Positive urine culture with 70K CFU of Staph Epidermidis Likely contaminant Follow clinically Hiatal Hernia Noted on chest CT Left renal cyst/mass Noted on CT Compression fracture t11 Continue current Rx
[2016-08-13] MEDS: ATORVASTATIN CA 40 MG TABLET (FP) PO SCH (21:08)
[2016-08-14] MEDS: methylPREDNISolone NA SUCC 40 MG/1 ML VIAL IVPB SCH ×4 (02:42→22:25)
[2016-08-14] MEDS: ALBUTEROL SO4 2.5/IPRATROPIUM 0.5 INH SOL 3 ML VIAL.NEB. NEB SCH ×3 (06:37→21:59)
[2016-08-14 08:08] LABS: BASOPHIL 0.1 % (0-2.0); MCH 24.9 pg (25.7-33.7); MCHC 31.6 g/dl (32.0-36.0); MEAN CELL VOLUME 78.7 fl (80-96); MEAN PLT VOLUME 9.9 fl (7.5-11.1); NEUTROPHILS 91.6 % (42.8-82.8); PLATELET COUNT 287 K/MM3 (134-434); RDW 17.6 % (11.6-15.6); WHITE BLOOD COUNT 12.7 K/mm3 (4.0-10.0)
[2016-08-14 08:29] LABS: CALCIUM 9.1 mg/dL (8.5-10.1)
[2016-08-14 08:35] LABS: BILIRUBIN,TOTAL 0.3 mg/dL (0.2-1.0); CREATININE 1.1 mg/dL (0.55-1.02); TOT PROT 5.9 g/dl (6.4-8.2)
[2016-08-14] MEDS ORDERED: PT OWN MED DRAWER 7, Y5N ONE ×2 (09:18→22:27)
[2016-08-14] MEDS: DOCUSATE SODIUM 100 MG CAPSULE (FP) PO SCH ×2 (09:23→22:25)
[2016-08-14] MEDS: ENALAPRIL MALEATE 10 MG TABLET (FP) PO SCH ×2 (09:23→22:26)
[2016-08-14] MEDS: METOPROLOL SUCCINATE 25 MG TAB.SR.24H (FP) PO SCH ×2 (09:23→22:25)
[2016-08-14] MEDS: NIFEdipine E.R 60 MG TABLET (UD) PO SCH (09:23)
[2016-08-14] MEDS: FOLIC ACID 1 MG TABLET (FP) PO SCH (09:24)
[2016-08-14] MEDS: APIXABAN 5 MG TABLET PO SCH ×2 (09:24→22:27)
[2016-08-14] MEDS: POLYETHYLENE GLYCOL 3350 119 GM BTL PO SCH ×2 (09:24→22:27)
--- NOTE | 2016-08-14 09:50 | PN ---
Progress Note (short form) - Note Progress Note: Patient seen and examined Chart reviewed. Currently sitting up in bed, alert and appropriate.. Cough persists unchanged with expiratory wheezing. Denies new chest discomfort palpitations or pre-syncope. No new GI symptoms. Labs and medication list reviewed Selected Entries 08/13/16 08/14/16 21:00 06:00 Temperature 98.9 F Pulse Rate 92 H Respiratory 20 Rate Blood Pressure 141/81 O2 Sat by Pulse 95 Oximetry (%) Oxygen Delivery Nasal Cannula Method Oxygen Flow 2 Rate Laboratory Tests 08/14/16 08/14/16 06:00 06:00 WBC 12.7 H D Hgb 9.6 L Hct 30.4 L Plt Count 287 Sodium 143 Potassium 4.9 Chloride 108 H Carbon Dioxide 26 BUN 32 H Creatinine 1.1 H Random Glucose 119 H Calcium 9.1 Total Bilirubin 0.3 D AST 15 D ALT 16 Alkaline Phosphatase 111 Total Protein 5.9 L Albumin 3.0 L Chest Diffuse expiratory wheezing slightly improved from yesterday Minimal rhonchi No rales No accessory muscle use Cor RRR Abd Soft non-tender Left pre-auricular facial mass unchanged according to the patient 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 Fe and Ferritin noted On NOAC as noted Positive urine culture with 70K CFU of Staph Epidermidis Likely contaminant Follow clinically Hiatal Hernia Noted on chest CT Left renal cyst/mass Noted on CT Compression fracture T11 Continue current Rx Maintain current corticosteroid dose
[2016-08-14] MEDS: ATORVASTATIN CA 40 MG TABLET (FP) PO SCH (22:25)
[2016-08-14] MEDS: guaiFENesin 200 MG/10 ML 10 ML UNIT-DOSE CUPS PO PRN (22:27)
[2016-08-15] MEDS: methylPREDNISolone NA SUCC 40 MG/1 ML VIAL IVPB SCH ×4 (02:20→21:28)
[2016-08-15] MEDS: ALBUTEROL SO4 2.5/IPRATROPIUM 0.5 INH SOL 3 ML VIAL.NEB. NEB SCH ×3 (06:29→22:10)
[2016-08-15 08:47] LABS: BASOPHIL 0.1 % (0-2.0); EOSINOPHIL 0.1 % (0-4.5); MCH 24.5 pg (25.7-33.7); MCHC 30.8 g/dl (32.0-36.0); MEAN CELL VOLUME 79.8 fl (80-96); MEAN PLT VOLUME 10.1 fl (7.5-11.1); NEUTROPHILS 91.5 % (42.8-82.8); PLATELET COUNT 335 K/MM3 (134-434); WHITE BLOOD COUNT 14.3 K/mm3 (4.0-10.0)
[2016-08-15 09:21] LABS: ALBUMIN 3.1 g/dl (3.4-5.0); BILIRUBIN,TOTAL 0.3 mg/dL (0.2-1.0); CREATININE 1.2 mg/dL (0.55-1.02)
[2016-08-15] MEDS ORDERED: PT OWN MED DRAWER 7, Y5N ONE ×2 (10:08→20:44)
[2016-08-15] MEDS: DOCUSATE SODIUM 100 MG CAPSULE (FP) PO SCH ×2 (10:15→21:30)
[2016-08-15] MEDS: NIFEdipine E.R 60 MG TABLET (UD) PO SCH (10:16)
[2016-08-15] MEDS: ENALAPRIL MALEATE 10 MG TABLET (FP) PO SCH ×2 (10:16→21:33)
[2016-08-15] MEDS: FOLIC ACID 1 MG TABLET (FP) PO SCH (10:16)
[2016-08-15] MEDS: POLYETHYLENE GLYCOL 3350 119 GM BTL PO SCH ×2 (10:16→21:32)
[2016-08-15] MEDS: METOPROLOL SUCCINATE 25 MG TAB.SR.24H (FP) PO SCH ×2 (10:16→21:32)
[2016-08-15] MEDS: APIXABAN 5 MG TABLET PO SCH ×2 (10:16→21:31)
--- NOTE | 2016-08-15 12:05 | PN ---
Progress Note, Physician Chief Complaint: Ms Stallings says the wheezing and coughing is better but still present. No cp or n/v. - Current Medication List Current Medications: Active Medications Acetaminophen (Tylenol -) 650 mg PO Q4H PRN PRN Reason: FEVER OR PAIN Albuterol/Ipratropium (Duoneb -) 1 amp NEB TIDR [facility] Last Admin: 08/15/16 06:29 Dose: 1 amp Apixaban (Eliquis -) 5 mg PO BID [facility] Last Admin: 08/15/16 10:16 Dose: 5 mg Atorvastatin Calcium (Lipitor -) 40 mg PO HS [facility] Last Admin: 08/14/16 22:25 Dose: 40 mg Docusate Sodium (Colace -) 100 mg PO BID [facility] Last Admin: 08/15/16 10:15 Dose: Not Given Enalapril Maleate (Vasotec -) 20 mg PO BID [facility] Last Admin: 08/15/16 10:16 Dose: 20 mg Folic Acid (Folic Acid -) 1 mg PO DAILY [facility] Last Admin: 08/15/16 10:16 Dose: 1 mg Guaifenesin (Robitussin -) 10 ml PO Q6H PRN PRN Reason: COUGH Last Admin: 08/14/16 22:27 Dose: 10 ml Methylprednisolone Sodium Succinate (Solu-Medrol -) 40 mg IVPB Q6H-IV [facility] Last Admin: 08/15/16 10:15 Dose: 40 mg Metoprolol Succinate (Toprol Xl -) 25 mg PO BID [facility] Last Admin: 08/15/16 10:16 Dose: 25 mg Nifedipine (Procardia Xl -) 60 mg PO DAILY [facility] Last Admin: 08/15/16 10:16 Dose: 60 mg Polyethylene Glycol (Miralax (For Daily Use) -) 17 gm PO BID [facility] Last Admin: 08/15/16 10:16 Dose: Not Given - Objective Vital Signs: Vital Signs Temperature 97.6 F 08/15/16 06:00 Pulse Rate 78 08/15/16 11:19 Respiratory Rate 18 08/15/16 06:00 Blood Pressure 129/65 08/15/16 06:00 O2 Sat by Pulse Oximetry (%) 96 08/15/16 11:19 Constitutional: Yes: Well Nourished, No Distress, Calm Cardiovascular: Yes: Regular Rate and Rhythm. No: Gallop, Murmur, Rub Respiratory: Yes: Regular, Cough, On Nasal O2, Wheezes. No: Rales, Rhonchi Gastrointestinal: Yes: Normal Bowel Sounds, Soft. No: Distention, Tenderness Extremities: Yes: WNL Edema: No Labs: CBC, BMP 08/15/16 07:00 08/15/16 07:00 INR, PTT INR 1.04 (0.82-1.09) 08/07/16 00:06 Problem List - Problems (1) Bronchitis Code(s): J40 - BRONCHITIS, NOT SPECIFIED ACUTE OR CHRONIC (2) DVT (deep venous thrombosis) Code(s): I82.409 - ACUTE EMBOLISM AND THOMBOS UNSP DEEP VN UNSP LOWER EXTREMITY (3) HLD (hyperlipidemia) Code(s): E78.5 - HYPERLIPIDEMIA, UNSPECIFIED (4) HTN (hypertension) Code(s): I10 - ESSENTIAL (PRIMARY) HYPERTENSION (5) Atrial fibrillation Code(s): I48.91 - UNSPECIFIED ATRIAL FIBRILLATION Qualifiers: Atrial fibrillation type: paroxysmal Qualified Code(s): I48.0 - Paroxysmal atrial fibrillation Assessment/Plan (1) Bronchitis Assessment/Plan: -secondary to RSV -slowly improving -continue solumedrol -continue duonebs -still requiring oxygen Code(s): J98.11 - ATELECTASIS (2) DVT (deep venous thrombosis) Assessment/Plan: -continue eliquis Code(s): I82.409 - ACUTE EMBOLISM AND THOMBOS UNSP DEEP VN UNSP LOWER EXTREMITY (3) HLD (hyperlipidemia) Assessment/Plan: -continue lipitor Code(s): E78.5 - HYPERLIPIDEMIA, UNSPECIFIED (4) HTN (hypertension) Assessment/Plan: -continue enalapril, toprol xl, and nifedipine Code(s): I10 - ESSENTIAL (PRIMARY) HYPERTENSION (5) Atrial fibrillation Assessment/Plan: -currently sounds in sinus rhythm -continue eliquis Code(s): I48.91 - UNSPECIFIED ATRIAL FIBRILLATION Qualifiers: Atrial fibrillation type: paroxysmal Qualified Code(s): I48.0 - Paroxysmal atrial fibrillation
[2016-08-15] MEDS: ATORVASTATIN CA 40 MG TABLET (FP) PO SCH (21:31)
[2016-08-16] MEDS: methylPREDNISolone NA SUCC 40 MG/1 ML VIAL IVPB SCH ×4 (02:25→21:41)
[2016-08-16] MEDS: ALBUTEROL SO4 2.5/IPRATROPIUM 0.5 INH SOL 3 ML VIAL.NEB. NEB SCH ×3 (06:45→22:25)
[2016-08-16 07:22] LABS: BASOPHIL 0.1 % (0-2.0); MCHC 31.7 g/dl (32.0-36.0); MEAN CELL VOLUME 78.9 fl (80-96); NEUTROPHILS 91.9 % (42.8-82.8); PLATELET COUNT 307 K/MM3 (134-434); WHITE BLOOD COUNT 11.3 K/mm3 (4.0-10.0)
[2016-08-16 07:44] LABS: CALCIUM 8.6 mg/dL (8.5-10.1); MAGNESIUM 2.3 mg/dL (1.8-2.4); PHOSPHOROUS 3.6 mg/dL (2.5-4.9)
[2016-08-16] MEDS: ENALAPRIL MALEATE 10 MG TABLET (FP) PO SCH ×2 (09:57→21:46)
[2016-08-16] MEDS ORDERED: PT OWN MED DRAWER 7, Y5N ONE ×3 (09:57→20:58)
[2016-08-16] MEDS: FOLIC ACID 1 MG TABLET (FP) PO SCH (09:57)
[2016-08-16] MEDS: NIFEdipine E.R 60 MG TABLET (UD) PO SCH (09:58)
[2016-08-16] MEDS: METOPROLOL SUCCINATE 25 MG TAB.SR.24H (FP) PO SCH ×2 (09:58→21:46)
[2016-08-16] MEDS: APIXABAN 5 MG TABLET PO SCH ×2 (09:59→21:44)
[2016-08-16] MEDS: POLYETHYLENE GLYCOL 3350 119 GM BTL PO SCH ×2 (10:00→21:45)
[2016-08-16] MEDS: DOCUSATE SODIUM 100 MG CAPSULE (FP) PO SCH ×2 (10:00→21:44)
--- NOTE | 2016-08-16 11:47 | PN ---
Progress Note, Physician Chief Complaint: Ms Stallings still has a cough but improving. No cp, sob, n/v. Currently off oxygen. - Current Medication List Current Medications: Active Medications Acetaminophen (Tylenol -) 650 mg PO Q4H PRN PRN Reason: FEVER OR PAIN Albuterol/Ipratropium (Duoneb -) 1 amp NEB TIDR [facility] Last Admin: 08/16/16 06:45 Dose: 1 amp Apixaban (Eliquis -) 5 mg PO BID [facility] Last Admin: 08/16/16 09:59 Dose: 5 mg Atorvastatin Calcium (Lipitor -) 40 mg PO HS [facility] Last Admin: 08/15/16 21:31 Dose: 40 mg Docusate Sodium (Colace -) 100 mg PO BID [facility] Last Admin: 08/16/16 10:00 Dose: Not Given Enalapril Maleate (Vasotec -) 20 mg PO BID [facility] Last Admin: 08/16/16 09:57 Dose: 20 mg Folic Acid (Folic Acid -) 1 mg PO DAILY [facility] Last Admin: 08/16/16 09:57 Dose: 1 mg Guaifenesin (Robitussin -) 10 ml PO Q6H PRN PRN Reason: COUGH Last Admin: 08/14/16 22:27 Dose: 10 ml Methylprednisolone Sodium Succinate (Solu-Medrol -) 40 mg IVPB Q6H-IV [facility] Last Admin: 08/16/16 09:57 Dose: 40 mg Metoprolol Succinate (Toprol Xl -) 25 mg PO BID [facility] Last Admin: 08/16/16 09:58 Dose: 25 mg Nifedipine (Procardia Xl -) 60 mg PO DAILY [facility] Last Admin: 08/16/16 09:58 Dose: 60 mg Polyethylene Glycol (Miralax (For Daily Use) -) 17 gm PO BID [facility] Last Admin: 08/16/16 10:00 Dose: Not Given - Objective Vital Signs: Vital Signs Temperature 98.5 F 08/16/16 06:00 Pulse Rate 78 08/16/16 11:20 Respiratory Rate 24 08/16/16 09:54 Blood Pressure 129/62 08/16/16 09:54 O2 Sat by Pulse Oximetry (%) 96 08/16/16 11:20 Constitutional: Yes: Well Nourished, No Distress, Calm HENT: Yes: Other (L sided facial mass) Cardiovascular: Yes: Regular Rate and Rhythm. No: Gallop, Murmur, Rub Respiratory: Yes: Regular, Wheezes (minimal). No: On Nasal O2, Rales, Rhonchi Gastrointestinal: Yes: Normal Bowel Sounds, Soft. No: Distention, Tenderness Extremities: Yes: WNL Edema: No Labs: CBC, BMP 08/16/16 06:45 08/16/16 06:45 INR, PTT INR 1.04 (0.82-1.09) 08/07/16 00:06 Problem List - Problems (1) Bronchitis Code(s): J40 - BRONCHITIS, NOT SPECIFIED ACUTE OR CHRONIC (2) DVT (deep venous thrombosis) Code(s): I82.409 - ACUTE EMBOLISM AND THOMBOS UNSP DEEP VN UNSP LOWER EXTREMITY (3) HLD (hyperlipidemia) Code(s): E78.5 - HYPERLIPIDEMIA, UNSPECIFIED (4) HTN (hypertension) Code(s): I10 - ESSENTIAL (PRIMARY) HYPERTENSION (5) Atrial fibrillation Code(s): I48.91 - UNSPECIFIED ATRIAL FIBRILLATION Qualifiers: Atrial fibrillation type: paroxysmal Qualified Code(s): I48.0 - Paroxysmal atrial fibrillation Assessment/Plan (1) Bronchitis Assessment/Plan: -secondary to RSV -continues to improve -continue solumedrol, will begin to taper tomorrow if improved -continue duonebs -checked saturations on RA, running 94-95% -will trial on RA while resting, still needs oxygen for ambulation Code(s): J98.11 - ATELECTASIS (2) DVT (deep venous thrombosis) Assessment/Plan: -continue eliquis Code(s): I82.409 - ACUTE EMBOLISM AND THOMBOS UNSP DEEP VN UNSP LOWER EXTREMITY (3) HLD (hyperlipidemia) Assessment/Plan: -continue lipitor Code(s): E78.5 - HYPERLIPIDEMIA, UNSPECIFIED (4) HTN (hypertension) Assessment/Plan: -continue enalapril, toprol xl, and nifedipine Code(s): I10 - ESSENTIAL (PRIMARY) HYPERTENSION (5) Atrial fibrillation Assessment/Plan: -currently sounds in sinus rhythm -continue eliquis Code(s): I48.91 - UNSPECIFIED ATRIAL FIBRILLATION Qualifiers: Atrial fibrillation type: paroxysmal Qualified Code(s): I48.0 - Paroxysmal atrial fibrillation
[2016-08-16] MEDS ORDERED: methylPREDNISolone NA SUCC 125 MG/2 ML VIAL ONE (14:31)
[2016-08-16] MEDS: ATORVASTATIN CA 40 MG TABLET (FP) PO SCH (21:45)
[2016-08-17] MEDS: methylPREDNISolone NA SUCC 40 MG/1 ML VIAL IVPB SCH ×3 (02:12→18:21)
[2016-08-17] MEDS: ALBUTEROL SO4 2.5/IPRATROPIUM 0.5 INH SOL 3 ML VIAL.NEB. NEB SCH ×3 (06:38→22:15)
[2016-08-17 07:10] LABS: MCHC 31.9 g/dl (32.0-36.0); MEAN CELL VOLUME 78.3 fl (80-96); MEAN PLT VOLUME 9.8 fl (7.5-11.1); PLATELET COUNT 305 K/MM3 (134-434); RDW 17.6 % (11.6-15.6); WHITE BLOOD COUNT 11.8 K/mm3 (4.0-10.0)
[2016-08-17 07:33] LABS: CALCIUM 8.1 mg/dL (8.5-10.1); CREATININE 1.1 mg/dL (0.55-1.02); MAGNESIUM 2.2 mg/dL (1.8-2.4); PHOSPHOROUS 3.5 mg/dL (2.5-4.9)
[2016-08-17] MEDS ORDERED: PT OWN MED DRAWER 7, Y5N ONE ×2 (09:13→20:39)
[2016-08-17] MEDS: DOCUSATE SODIUM 100 MG CAPSULE (FP) PO SCH ×2 (09:25→21:14)
[2016-08-17] MEDS: APIXABAN 5 MG TABLET PO SCH ×2 (09:25→21:14)
[2016-08-17] MEDS: FOLIC ACID 1 MG TABLET (FP) PO SCH (09:25)
[2016-08-17] MEDS: ENALAPRIL MALEATE 10 MG TABLET (FP) PO SCH ×2 (09:26→21:29)
[2016-08-17] MEDS: NIFEdipine E.R 60 MG TABLET (UD) PO SCH (09:26)
[2016-08-17] MEDS: POLYETHYLENE GLYCOL 3350 119 GM BTL PO SCH ×2 (09:26→21:27)
[2016-08-17] MEDS: METOPROLOL SUCCINATE 25 MG TAB.SR.24H (FP) PO SCH ×2 (09:26→21:28)
[2016-08-17 11:40] LABS: METAMYELOCYTE 1 % (0-2)
[2016-08-17 11:41] LABS: PLATELET ESTIMATE ADEQUATE (NORMAL)
[2016-08-17] MEDS: ATORVASTATIN CA 40 MG TABLET (FP) PO SCH (21:18)
[2016-08-18] MEDS: methylPREDNISolone NA SUCC 40 MG/1 ML VIAL IVPB SCH ×3 (01:02→18:48)
[2016-08-18] MEDS: ALBUTEROL SO4 2.5/IPRATROPIUM 0.5 INH SOL 3 ML VIAL.NEB. NEB SCH ×3 (06:59→22:38)
[2016-08-18] MEDS ORDERED: PT OWN MED DRAWER 7, Y5N ONE ×3 (10:23→20:45)
[2016-08-18] MEDS: DOCUSATE SODIUM 100 MG CAPSULE (FP) PO SCH ×2 (10:28→22:01)
[2016-08-18] MEDS: METOPROLOL SUCCINATE 25 MG TAB.SR.24H (FP) PO SCH ×2 (10:28→23:08)
[2016-08-18] MEDS: NIFEdipine E.R 60 MG TABLET (UD) PO SCH (10:28)
[2016-08-18] MEDS: POLYETHYLENE GLYCOL 3350 119 GM BTL PO SCH ×2 (10:28→22:04)
[2016-08-18] MEDS: FOLIC ACID 1 MG TABLET (FP) PO SCH (10:28)
[2016-08-18] MEDS: ENALAPRIL MALEATE 10 MG TABLET (FP) PO SCH ×2 (10:29→22:01)
[2016-08-18] MEDS: APIXABAN 5 MG TABLET PO SCH ×2 (10:29→22:01)
--- NOTE | 2016-08-18 15:01 | PN ---
Physical Exam: SUBJECTIVE: Patient seen and examined oob to chair receiving nebulizer treatment. OBJECTIVE: Vital Signs Period Temp Pulse Resp BP Sys/Galvez Pulse Ox Last 24 Hr 97.6 F-98.0 F 71-84 16-22 116-136/50-73 93-97 GENERAL: The patient is awake, alert, and fully oriented, in no acute distress. HEAD: Normal with no signs of trauma. EYES: PERRL, extraocular movements intact, sclera anicteric, conjunctiva clear. No ptosis. LUNGS: + cough; mild diffuse expiratory wheezing HEART: Regular rate and rhythm, S1, S2 without murmur, rub or gallop. ABDOMEN: Soft, nontender, nondistended, normoactive bowel sounds, no guarding, no rebound, no hepatosplenomegaly, no masses. EXTREMITIES: 2+ pulses, warm, well-perfused, no edema. NEUROLOGICAL: Cranial nerves II through XII grossly intact. Normal speech, gait not observed. Active Medications Generic Name Dose Route Start Last Admin Trade Name Freq PRN Reason Stop Dose Admin Acetaminophen 650 mg 08/07/16 05:14 Tylenol - PO Q4H PRN FEVER OR PAIN Albuterol/Ipratropium 1 amp 08/10/16 22:00 08/18/16 14:31 Duoneb - NEB 1 amp TIDR [facility] Administration Apixaban 5 mg 08/07/16 10:00 08/18/16 10:29 Eliquis - PO 5 mg BID [facility] Administration Atorvastatin Calcium 40 mg 08/07/16 22:00 08/17/16 21:18 Lipitor - PO 40 mg HS [facility] Administration Docusate Sodium 100 mg 08/11/16 13:15 08/18/16 10:28 Colace - PO Not Given BID [facility] Enalapril Maleate 20 mg 08/07/16 10:00 08/18/16 10:29 Vasotec - PO 20 mg BID [facility] Administration Folic Acid 1 mg 08/07/16 10:00 08/18/16 10:28 Folic Acid - PO 1 mg DAILY [facility] Administration Guaifenesin 10 ml 08/08/16 13:03 08/14/16 22:27 Robitussin - PO 10 ml Q6H PRN Administration COUGH Methylprednisolone Sodium Succinate 40 mg 08/17/16 18:00 08/18/16 10:28 Solu-Medrol - IVPB 40 mg Q8H-IV [facility] Administration Metoprolol Succinate 25 mg 08/07/16 10:00 08/18/16 10:28 Toprol Xl - PO 25 mg BID [facility] Administration Nifedipine 60 mg 08/07/16 10:00 08/18/16 10:28 Procardia Xl - PO 60 mg DAILY [facility] Administration Polyethylene Glycol 17 gm 08/11/16 13:15 08/18/16 10:28 Miralax (For Daily Use) - PO Not Given BID [facility] ASSESSMENT/PLAN Assessment/Plan (1) Bronchitis Assessment/Plan: -secondary to RSV -slowly improving -continue solumedrol -continue duonebs -still requiring oxygen (2) DVT (deep venous thrombosis) Assessment/Plan: -continue eliquis (3) HLD (hyperlipidemia) Assessment/Plan: -continue lipitor (4) HTN (hypertension) Assessment/Plan: -BP well-controlled -continue enalapril, toprol xl, and nifedipine (5) Atrial fibrillation Assessment/Plan: -currently in sinus rhythm -continue eliquis DVT prophylaxis: on Eliquis Visit type - Emergency Visit Emergency Visit: Yes ED Registration Date: 08/07/16 Care time: The patient presented to the Emergency Department on the above date and was hospitalized for further evaluation of their emergent condition. - New Patient This patient is new to me today: Yes Date on this admission: 08/18/16 - Critical Care Critical Care patient: No
[2016-08-18] MEDS: ATORVASTATIN CA 40 MG TABLET (FP) PO SCH (22:01)
[2016-08-19] MEDS: methylPREDNISolone NA SUCC 40 MG/1 ML VIAL IVPB SCH ×3 (02:29→18:57)
[2016-08-19] MEDS: ALBUTEROL SO4 2.5/IPRATROPIUM 0.5 INH SOL 3 ML VIAL.NEB. NEB SCH ×3 (07:12→22:31)
[2016-08-19 07:59] LABS: BASOPHIL 0.3 % (0-2.0); EOSINOPHIL 0.1 % (0-4.5); MCH 24.7 pg (25.7-33.7); MCHC 31.4 g/dl (32.0-36.0); MEAN CELL VOLUME 78.6 fl (80-96); MEAN PLT VOLUME 10.1 fl (7.5-11.1); NEUTROPHILS 90.9 % (42.8-82.8); PLATELET COUNT 303 K/MM3 (134-434)
[2016-08-19] MEDS ORDERED: PT OWN MED DRAWER 7, Y5N ONE ×2 (08:55→21:40)
[2016-08-19] MEDS: APIXABAN 5 MG TABLET PO SCH ×2 (09:02→22:50)
[2016-08-19] MEDS: DOCUSATE SODIUM 100 MG CAPSULE (FP) PO SCH ×2 (09:02→22:50)
[2016-08-19] MEDS: POLYETHYLENE GLYCOL 3350 119 GM BTL PO SCH ×2 (09:03→22:50)
[2016-08-19] MEDS: FOLIC ACID 1 MG TABLET (FP) PO SCH (09:03)
[2016-08-19] MEDS: METOPROLOL SUCCINATE 25 MG TAB.SR.24H (FP) PO SCH ×2 (09:08→22:50)
[2016-08-19] MEDS: NIFEdipine E.R 60 MG TABLET (UD) PO SCH (09:08)
[2016-08-19] MEDS: ENALAPRIL MALEATE 10 MG TABLET (FP) PO SCH ×2 (09:09→22:50)
[2016-08-19 09:21] LABS: ALBUMIN 2.8 g/dl (3.4-5.0); BILIRUBIN,TOTAL 0.4 mg/dL (0.2-1.0); CALCIUM 8.3 mg/dL (8.5-10.1); MAGNESIUM 2.5 mg/dL (1.8-2.4); TOT PROT 5.5 g/dl (6.4-8.2)
--- NOTE | 2016-08-19 15:58 | PN ---
Progress Note, Physician Chief Complaint: Ms Stallings says she is feeling better but still with wheezing and coughing. No cp, sob, n/v. - Current Medication List Current Medications: Active Medications Acetaminophen (Tylenol -) 650 mg PO Q4H PRN PRN Reason: FEVER OR PAIN Albuterol/Ipratropium (Duoneb -) 1 amp NEB TIDR [facility] Last Admin: 08/19/16 14:05 Dose: 1 amp Apixaban (Eliquis -) 5 mg PO BID [facility] Last Admin: 08/19/16 09:02 Dose: 5 mg Atorvastatin Calcium (Lipitor -) 40 mg PO HS [facility] Last Admin: 08/18/16 22:01 Dose: 40 mg Docusate Sodium (Colace -) 100 mg PO BID [facility] Last Admin: 08/19/16 09:02 Dose: 100 mg Enalapril Maleate (Vasotec -) 20 mg PO BID [facility] Last Admin: 08/19/16 09:09 Dose: 20 mg Folic Acid (Folic Acid -) 1 mg PO DAILY [facility] Last Admin: 08/19/16 09:03 Dose: 1 mg Guaifenesin (Robitussin -) 10 ml PO Q6H PRN PRN Reason: COUGH Last Admin: 08/14/16 22:27 Dose: 10 ml Methylprednisolone Sodium Succinate (Solu-Medrol -) 40 mg IVPB Q8H-IV [facility] Last Admin: 08/19/16 09:08 Dose: 40 mg Metoprolol Succinate (Toprol Xl -) 25 mg PO BID [facility] Last Admin: 08/19/16 09:08 Dose: 25 mg Nifedipine (Procardia Xl -) 60 mg PO DAILY [facility] Last Admin: 08/19/16 09:08 Dose: 60 mg Polyethylene Glycol (Miralax (For Daily Use) -) 17 gm PO BID [facility] Last Admin: 08/19/16 09:03 Dose: Not Given - Objective Vital Signs: Vital Signs Temperature 98 F 08/19/16 14:03 Pulse Rate 77 08/19/16 14:05 Respiratory Rate 18 08/19/16 14:03 Blood Pressure 112/48 08/19/16 14:03 O2 Sat by Pulse Oximetry (%) 96 08/19/16 14:05 Constitutional: Yes: Well Nourished, No Distress, Calm Cardiovascular: Yes: Regular Rate and Rhythm. No: Gallop, Murmur, Rub Respiratory: Yes: Regular, On Nasal O2, Wheezes. No: Rales, Rhonchi Gastrointestinal: Yes: Normal Bowel Sounds, Soft. No: Distention, Tenderness Extremities: Yes: WNL Edema: No Labs: CBC, BMP 08/19/16 06:15 08/19/16 06:15 INR, PTT INR 1.04 (0.82-1.09) 08/07/16 00:06 Problem List - Problems (1) Bronchitis Code(s): J40 - BRONCHITIS, NOT SPECIFIED ACUTE OR CHRONIC (2) DVT (deep venous thrombosis) Code(s): I82.409 - ACUTE EMBOLISM AND THOMBOS UNSP DEEP VN UNSP LOWER EXTREMITY (3) HLD (hyperlipidemia) Code(s): E78.5 - HYPERLIPIDEMIA, UNSPECIFIED (4) HTN (hypertension) Code(s): I10 - ESSENTIAL (PRIMARY) HYPERTENSION (5) Atrial fibrillation Code(s): I48.91 - UNSPECIFIED ATRIAL FIBRILLATION Qualifiers: Atrial fibrillation type: paroxysmal Qualified Code(s): I48.0 - Paroxysmal atrial fibrillation Assessment/Plan (1) Bronchitis Assessment/Plan: -secondary to RSV -slowly improving -taper steroids today -attempt to wean oxygen Code(s): J98.11 - ATELECTASIS (2) DVT (deep venous thrombosis) Assessment/Plan: -continue eliquis Code(s): I82.409 - ACUTE EMBOLISM AND THOMBOS UNSP DEEP VN UNSP LOWER EXTREMITY (3) HLD (hyperlipidemia) Assessment/Plan: -continue lipitor Code(s): E78.5 - HYPERLIPIDEMIA, UNSPECIFIED (4) HTN (hypertension) Assessment/Plan: -continue enalapril, toprol xl, and nifedipine Code(s): I10 - ESSENTIAL (PRIMARY) HYPERTENSION (5) Atrial fibrillation Assessment/Plan: -currently sounds in sinus rhythm -continue eliquis Code(s): I48.91 - UNSPECIFIED ATRIAL FIBRILLATION Qualifiers: Atrial fibrillation type: paroxysmal Qualified Code(s): I48.0 - Paroxysmal atrial fibrillation
--- NOTE | 2016-08-19 16:04 | PN ---
Progress Note, Physician Chief Complaint: Ms Stallings says she feels "yucky" today. Mainly secondary to feeling weak on walking. Still with wheezing and requiring oxygen. - Current Medication List Current Medications: Active Medications Acetaminophen (Tylenol -) 650 mg PO Q4H PRN PRN Reason: FEVER OR PAIN Albuterol/Ipratropium (Duoneb -) 1 amp NEB TIDR [facility] Last Admin: 08/19/16 14:05 Dose: 1 amp Apixaban (Eliquis -) 5 mg PO BID [facility] Last Admin: 08/19/16 09:02 Dose: 5 mg Atorvastatin Calcium (Lipitor -) 40 mg PO HS [facility] Last Admin: 08/18/16 22:01 Dose: 40 mg Docusate Sodium (Colace -) 100 mg PO BID [facility] Last Admin: 08/19/16 09:02 Dose: 100 mg Enalapril Maleate (Vasotec -) 20 mg PO BID [facility] Last Admin: 08/19/16 09:09 Dose: 20 mg Folic Acid (Folic Acid -) 1 mg PO DAILY [facility] Last Admin: 08/19/16 09:03 Dose: 1 mg Guaifenesin (Robitussin -) 10 ml PO Q6H PRN PRN Reason: COUGH Last Admin: 08/14/16 22:27 Dose: 10 ml Methylprednisolone Sodium Succinate (Solu-Medrol -) 40 mg IVPB Q8H-IV [facility] Last Admin: 08/19/16 09:08 Dose: 40 mg Metoprolol Succinate (Toprol Xl -) 25 mg PO BID [facility] Last Admin: 08/19/16 09:08 Dose: 25 mg Nifedipine (Procardia Xl -) 60 mg PO DAILY [facility] Last Admin: 08/19/16 09:08 Dose: 60 mg Polyethylene Glycol (Miralax (For Daily Use) -) 17 gm PO BID [facility] Last Admin: 08/19/16 09:03 Dose: Not Given - Objective Vital Signs: Vital Signs Temperature 98 F 08/19/16 14:03 Pulse Rate 77 08/19/16 14:05 Respiratory Rate 18 08/19/16 14:03 Blood Pressure 112/48 08/19/16 14:03 O2 Sat by Pulse Oximetry (%) 96 08/19/16 14:05 Constitutional: Yes: Well Nourished, No Distress, Calm Cardiovascular: Yes: Regular Rate and Rhythm. No: Gallop, Murmur, Rub Respiratory: Yes: Regular, On Nasal O2, Wheezes. No: Rales, Rhonchi Gastrointestinal: Yes: Normal Bowel Sounds, Soft. No: Distention, Tenderness Extremities: Yes: WNL Edema: No Labs: CBC, BMP 08/19/16 06:15 08/19/16 06:15 INR, PTT INR 1.04 (0.82-1.09) 08/07/16 00:06 Problem List - Problems (1) Bronchitis Code(s): J40 - BRONCHITIS, NOT SPECIFIED ACUTE OR CHRONIC (2) DVT (deep venous thrombosis) Code(s): I82.409 - ACUTE EMBOLISM AND THOMBOS UNSP DEEP VN UNSP LOWER EXTREMITY (3) HLD (hyperlipidemia) Code(s): E78.5 - HYPERLIPIDEMIA, UNSPECIFIED (4) HTN (hypertension) Code(s): I10 - ESSENTIAL (PRIMARY) HYPERTENSION (5) Atrial fibrillation Code(s): I48.91 - UNSPECIFIED ATRIAL FIBRILLATION Qualifiers: Atrial fibrillation type: paroxysmal Qualified Code(s): I48.0 - Paroxysmal atrial fibrillation Assessment/Plan (1) Bronchitis Assessment/Plan: -secondary to RSV -still with significant wheezing -continue IV solumedrol at current dose -if improves, change to q12h Code(s): J98.11 - ATELECTASIS (2) DVT (deep venous thrombosis) Assessment/Plan: -continue eliquis Code(s): I82.409 - ACUTE EMBOLISM AND THOMBOS UNSP DEEP VN UNSP LOWER EXTREMITY (3) HLD (hyperlipidemia) Assessment/Plan: -continue lipitor Code(s): E78.5 - HYPERLIPIDEMIA, UNSPECIFIED (4) HTN (hypertension) Assessment/Plan: -continue enalapril, toprol xl, and nifedipine Code(s): I10 - ESSENTIAL (PRIMARY) HYPERTENSION (5) Atrial fibrillation Assessment/Plan: -currently sounds in sinus rhythm -continue eliquis Code(s): I48.91 - UNSPECIFIED ATRIAL FIBRILLATION Qualifiers: Atrial fibrillation type: paroxysmal Qualified Code(s): I48.0 - Paroxysmal atrial fibrillation
[2016-08-19] MEDS: ATORVASTATIN CA 40 MG TABLET (FP) PO SCH (22:50)
[2016-08-20] MEDS: methylPREDNISolone NA SUCC 40 MG/1 ML VIAL IVPB SCH ×4 (01:27→23:34)
[2016-08-20] MEDS: ALBUTEROL SO4 2.5/IPRATROPIUM 0.5 INH SOL 3 ML VIAL.NEB. NEB SCH ×3 (06:40→21:50)
[2016-08-20 08:08] LABS: BASOPHIL 0.2 % (0-2.0); MCH 24.8 pg (25.7-33.7); MCHC 31.3 g/dl (32.0-36.0); MEAN PLT VOLUME 10.1 fl (7.5-11.1); NEUTROPHILS 91.5 % (42.8-82.8); PLATELET COUNT 280 K/MM3 (134-434); RDW 17.8 % (11.6-15.6); WHITE BLOOD COUNT 13.5 K/mm3 (4.0-10.0)
[2016-08-20 08:49] LABS: CALCIUM 7.7 mg/dL (8.5-10.1); CREATININE 1.1 mg/dL (0.55-1.02); MAGNESIUM 2.2 mg/dL (1.8-2.4)
[2016-08-20] MEDS ORDERED: PT OWN MED DRAWER 7, Y5N ONE ×2 (10:02→23:07)
[2016-08-20] MEDS: APIXABAN 5 MG TABLET PO SCH ×2 (10:04→23:34)
[2016-08-20] MEDS: DOCUSATE SODIUM 100 MG CAPSULE (FP) PO SCH ×2 (10:04→23:34)
[2016-08-20] MEDS: ENALAPRIL MALEATE 10 MG TABLET (FP) PO SCH ×2 (10:04→23:39)
[2016-08-20] MEDS: METOPROLOL SUCCINATE 25 MG TAB.SR.24H (FP) PO SCH ×2 (10:04→23:38)
[2016-08-20] MEDS: FOLIC ACID 1 MG TABLET (FP) PO SCH (10:04)
[2016-08-20] MEDS: NIFEdipine E.R 60 MG TABLET (UD) PO SCH (10:05)
[2016-08-20] MEDS: POLYETHYLENE GLYCOL 3350 119 GM BTL PO SCH ×2 (10:06→23:34)
--- NOTE | 2016-08-20 12:51 | PN ---
Progress Note, Physician Chief Complaint: Ms Stalilngs complains of cough with wheezing. No cp, sob, n/v. - Current Medication List Current Medications: Active Medications Acetaminophen (Tylenol -) 650 mg PO Q4H PRN PRN Reason: FEVER OR PAIN Albuterol/Ipratropium (Duoneb -) 1 amp NEB TIDR [facility] Last Admin: 08/20/16 06:40 Dose: 1 amp Apixaban (Eliquis -) 5 mg PO BID [facility] Last Admin: 08/20/16 10:04 Dose: 5 mg Atorvastatin Calcium (Lipitor -) 40 mg PO HS [facility] Last Admin: 08/19/16 22:50 Dose: 40 mg Docusate Sodium (Colace -) 100 mg PO BID [facility] Last Admin: 08/20/16 10:04 Dose: 100 mg Enalapril Maleate (Vasotec -) 20 mg PO BID [facility] Last Admin: 08/20/16 10:04 Dose: 20 mg Folic Acid (Folic Acid -) 1 mg PO DAILY [facility] Last Admin: 08/20/16 10:04 Dose: 1 mg Guaifenesin (Robitussin -) 10 ml PO Q6H PRN PRN Reason: COUGH Last Admin: 08/14/16 22:27 Dose: 10 ml Metoprolol Succinate (Toprol Xl -) 25 mg PO BID [facility] Last Admin: 08/20/16 10:04 Dose: 25 mg Nifedipine (Procardia Xl -) 60 mg PO DAILY [facility] Last Admin: 08/20/16 10:05 Dose: 60 mg Polyethylene Glycol (Miralax (For Daily Use) -) 17 gm PO BID [facility] Last Admin: 08/20/16 10:06 Dose: 17 gm - Objective Vital Signs: Vital Signs Temperature 97.8 F 08/20/16 10:00 Pulse Rate 69 08/20/16 10:00 Respiratory Rate 20 08/20/16 10:00 Blood Pressure 139/71 08/20/16 10:00 O2 Sat by Pulse Oximetry (%) 96 08/19/16 21:00 Constitutional: Yes: Well Nourished, No Distress, Calm HENT: Yes: Other (L facial mass) Cardiovascular: Yes: Regular Rate and Rhythm. No: Gallop, Murmur, Rub Respiratory: Yes: Regular, On Nasal O2, Wheezes. No: Rales, Rhonchi Gastrointestinal: Yes: Normal Bowel Sounds, Soft. No: Distention, Tenderness Extremities: Yes: WNL Edema: No Labs: CBC, BMP 08/20/16 06:00 08/20/16 06:00 INR, PTT INR 1.04 (0.82-1.09) 08/07/16 00:06 Problem List - Problems (1) Bronchitis Code(s): J40 - BRONCHITIS, NOT SPECIFIED ACUTE OR CHRONIC (2) DVT (deep venous thrombosis) Code(s): I82.409 - ACUTE EMBOLISM AND THOMBOS UNSP DEEP VN UNSP LOWER EXTREMITY (3) HLD (hyperlipidemia) Code(s): E78.5 - HYPERLIPIDEMIA, UNSPECIFIED (4) HTN (hypertension) Code(s): I10 - ESSENTIAL (PRIMARY) HYPERTENSION (5) Atrial fibrillation Code(s): I48.91 - UNSPECIFIED ATRIAL FIBRILLATION Qualifiers: Atrial fibrillation type: paroxysmal Qualified Code(s): I48.0 - Paroxysmal atrial fibrillation Assessment/Plan (1) Bronchitis Assessment/Plan: -secondary to RSV -patient continues to improve and look comfortable even though she says she feels bad -wheezing present but much improved -change solumedrol to q12h -continue duonebs Code(s): J98.11 - ATELECTASIS (2) DVT (deep venous thrombosis) Assessment/Plan: -continue eliquis Code(s): I82.409 - ACUTE EMBOLISM AND THOMBOS UNSP DEEP VN UNSP LOWER EXTREMITY (3) HLD (hyperlipidemia) Assessment/Plan: -continue lipitor Code(s): E78.5 - HYPERLIPIDEMIA, UNSPECIFIED (4) HTN (hypertension) Assessment/Plan: -continue enalapril, toprol xl, and nifedipine Code(s): I10 - ESSENTIAL (PRIMARY) HYPERTENSION (5) Atrial fibrillation Assessment/Plan: -currently sounds in sinus rhythm -continue eliquis Code(s): I48.91 - UNSPECIFIED ATRIAL FIBRILLATION Qualifiers: Atrial fibrillation type: paroxysmal Qualified Code(s): I48.0 - Paroxysmal atrial fibrillation
[2016-08-20] MEDS: ATORVASTATIN CA 40 MG TABLET (FP) PO SCH (23:34)
[2016-08-21] MEDS: ALBUTEROL SO4 2.5/IPRATROPIUM 0.5 INH SOL 3 ML VIAL.NEB. NEB SCH ×3 (07:05→22:52)
[2016-08-21] MEDS ORDERED: PT OWN MED DRAWER 7, Y5N ONE ×2 (10:11→11:18)
[2016-08-21] MEDS: FOLIC ACID 1 MG TABLET (FP) PO SCH (10:13)
[2016-08-21] MEDS: POLYETHYLENE GLYCOL 3350 119 GM BTL PO SCH (10:13)
[2016-08-21] MEDS: METOPROLOL SUCCINATE 25 MG TAB.SR.24H (FP) PO SCH (10:13)
[2016-08-21] MEDS: methylPREDNISolone NA SUCC 40 MG/1 ML VIAL IVPB SCH (10:13)
[2016-08-21] MEDS: DOCUSATE SODIUM 100 MG CAPSULE (FP) PO SCH (10:13)
[2016-08-21] MEDS: ENALAPRIL MALEATE 10 MG TABLET (FP) PO SCH (10:13)
[2016-08-21] MEDS: NIFEdipine E.R 60 MG TABLET (UD) PO SCH (10:13)
[2016-08-21] MEDS: APIXABAN 5 MG TABLET PO SCH (11:38)
--- NOTE | 2016-08-21 14:15 | PN ---
Progress Note, Physician Chief Complaint: Ms Stallings continues to say she feels bad. Continues to say she feels weak. Complaining about the food today. No cp or n/v. No sob but complains of wheezing. - Current Medication List Current Medications: Active Medications Acetaminophen (Tylenol -) 650 mg PO Q4H PRN PRN Reason: FEVER OR PAIN Albuterol/Ipratropium (Duoneb -) 1 amp NEB TIDR [facility] Last Admin: 08/21/16 14:07 Dose: 1 amp Apixaban (Eliquis -) 5 mg PO BID [facility] Last Admin: 08/21/16 11:38 Dose: 5 mg Atorvastatin Calcium (Lipitor -) 40 mg PO HS [facility] Last Admin: 08/20/16 23:34 Dose: 40 mg Docusate Sodium (Colace -) 100 mg PO BID [facility] Last Admin: 08/21/16 10:13 Dose: 100 mg Enalapril Maleate (Vasotec -) 20 mg PO BID [facility] Last Admin: 08/21/16 10:13 Dose: 20 mg Folic Acid (Folic Acid -) 1 mg PO DAILY [facility] Last Admin: 08/21/16 10:13 Dose: 1 mg Guaifenesin (Robitussin -) 10 ml PO Q6H PRN PRN Reason: COUGH Last Admin: 08/14/16 22:27 Dose: 10 ml Methylprednisolone Sodium Succinate (Solu-Medrol -) 40 mg IVPB BID [facility] Stop: 08/21/16 23:59 Last Admin: 08/21/16 10:13 Dose: 40 mg Metoprolol Succinate (Toprol Xl -) 25 mg PO BID [facility] Last Admin: 08/21/16 10:13 Dose: 25 mg Nifedipine (Procardia Xl -) 60 mg PO DAILY [facility] Last Admin: 08/21/16 10:13 Dose: 60 mg Polyethylene Glycol (Miralax (For Daily Use) -) 17 gm PO BID [facility] Last Admin: 08/21/16 10:13 Dose: 17 gm - Objective Vital Signs: Vital Signs Temperature 97.4 F L 08/21/16 10:00 Pulse Rate 72 08/21/16 10:00 Respiratory Rate 18 08/21/16 10:00 Blood Pressure 120/68 08/21/16 10:00 O2 Sat by Pulse Oximetry (%) 95 08/20/16 21:00 Constitutional: Yes: Well Nourished, No Distress, Calm HENT: Yes: Other (L facial mass) Cardiovascular: Yes: Regular Rate and Rhythm. No: Gallop, Murmur, Rub Respiratory: Yes: Regular, On Nasal O2, Wheezes (improving). No: Rales, Rhonchi Gastrointestinal: Yes: Normal Bowel Sounds, Soft. No: Distention, Tenderness Extremities: Yes: WNL Edema: No Labs: CBC, BMP 08/20/16 06:00 08/20/16 06:00 INR, PTT INR 1.04 (0.82-1.09) 08/07/16 00:06 Problem List - Problems (1) Bronchitis Code(s): J40 - BRONCHITIS, NOT SPECIFIED ACUTE OR CHRONIC (2) DVT (deep venous thrombosis) Code(s): I82.409 - ACUTE EMBOLISM AND THOMBOS UNSP DEEP VN UNSP LOWER EXTREMITY (3) HLD (hyperlipidemia) Code(s): E78.5 - HYPERLIPIDEMIA, UNSPECIFIED (4) HTN (hypertension) Code(s): I10 - ESSENTIAL (PRIMARY) HYPERTENSION (5) Atrial fibrillation Code(s): I48.91 - UNSPECIFIED ATRIAL FIBRILLATION Qualifiers: Atrial fibrillation type: paroxysmal Qualified Code(s): I48.0 - Paroxysmal atrial fibrillation Assessment/Plan (1) Bronchitis Assessment/Plan: -secondary to RSV -continues to improve -change to prednisone 60mg daily tomorrow -respiratory to do pre and post and attempt to wean to room air -if tolerates oral prednisone, can plan for discharge in next 24-48 hours Code(s): J98.11 - ATELECTASIS (2) DVT (deep venous thrombosis) Assessment/Plan: -continue eliquis Code(s): I82.409 - ACUTE EMBOLISM AND THOMBOS UNSP DEEP VN UNSP LOWER EXTREMITY (3) HLD (hyperlipidemia) Assessment/Plan: -continue lipitor Code(s): E78.5 - HYPERLIPIDEMIA, UNSPECIFIED (4) HTN (hypertension) Assessment/Plan: -continue enalapril, toprol xl, and nifedipine Code(s): I10 - ESSENTIAL (PRIMARY) HYPERTENSION (5) Atrial fibrillation Assessment/Plan: -currently sounds in sinus rhythm -continue eliquis Code(s): I48.91 - UNSPECIFIED ATRIAL FIBRILLATION Qualifiers: Atrial fibrillation type: paroxysmal Qualified Code(s): I48.0 - Paroxysmal atrial fibrillation
[2016-08-22] MEDS ORDERED: PT OWN MED DRAWER 7, Y5N ONE ×3 (00:24→20:54)
[2016-08-22] MEDS: ATORVASTATIN CA 40 MG TABLET (FP) PO SCH ×2 (00:27→21:32)
[2016-08-22] MEDS: APIXABAN 5 MG TABLET PO SCH ×3 (00:27→21:32)
[2016-08-22] MEDS: DOCUSATE SODIUM 100 MG CAPSULE (FP) PO SCH ×3 (00:27→21:30)
[2016-08-22] MEDS: methylPREDNISolone NA SUCC 40 MG/1 ML VIAL IVPB SCH (00:28)
[2016-08-22] MEDS: POLYETHYLENE GLYCOL 3350 119 GM BTL PO SCH ×3 (00:28→21:32)
[2016-08-22] MEDS: METOPROLOL SUCCINATE 25 MG TAB.SR.24H (FP) PO SCH ×3 (00:43→21:32)
[2016-08-22] MEDS: ENALAPRIL MALEATE 10 MG TABLET (FP) PO SCH ×3 (00:43→21:32)
[2016-08-22] MEDS: ALBUTEROL SO4 2.5/IPRATROPIUM 0.5 INH SOL 3 ML VIAL.NEB. NEB SCH ×3 (06:58→22:59)
[2016-08-22 07:29] LABS: MCH 25.1 pg (25.7-33.7); MCHC 31.9 g/dl (32.0-36.0); MEAN CELL VOLUME 78.7 fl (80-96); MEAN PLT VOLUME 10.5 fl (7.5-11.1); PLATELET COUNT 237 K/MM3 (134-434); RDW 17.7 % (11.6-15.6)
[2016-08-22 07:51] LABS: CALCIUM 7.7 mg/dL (8.5-10.1); MAGNESIUM 2.2 mg/dL (1.8-2.4)
[2016-08-22] MEDS: FOLIC ACID 1 MG TABLET (FP) PO SCH (09:52)
[2016-08-22] MEDS: predniSONE 20 MG TABLET (UD) PO SCH (09:52)
[2016-08-22] MEDS: NIFEdipine E.R 60 MG TABLET (UD) PO SCH (09:53)
[2016-08-22 10:49] LABS: ANISOCYTOSIS 1+; HYPOCHROMIA 1+; MICROCYTOSIS 1+; PLATELET COMMENT2 NO CLOTTING DETECTED; PLATELET COMMENT3 FEW LARGE PLTS; PLATELET ESTIMATE ADEQUATE (NORMAL)
[2016-08-22 10:50] LABS: POIKILOCYTOSIS 1+
--- NOTE | 2016-08-22 11:28 | PN ---
Progress Note (short form) - Note Progress Note: Patient seen and examined Chart reviewed. Currently lyin supine in bed with head raised, alert and appropriate.. Cough persists but improved with less expiratory wheezing. Denies new chest discomfort palpitations or pre-syncope. No new GI symptoms. Labs and medication list reviewed. Appetite decreased Selected Entries 08/21/16 08/22/16 08/22/16 21:00 09:14 09:25 Temperature Oral Source Pulse Rate 84 Respiratory 24 Rate Blood Pressure 131/53 O2 Sat by Pulse 97 Oximetry (%) Oxygen Delivery Nasal Cannula Method Oxygen Flow 2 Rate Laboratory Tests 08/22/16 08/22/16 06:30 06:30 WBC 14.0 H Hgb 9.5 L Hct 29.8 L Plt Count 237 Sodium 140 Potassium 5.3 H Chloride 105 Carbon Dioxide 25 BUN 33 H Creatinine 1.0 Random Glucose 108 H Calcium 7.7 L Phosphorus 4.0 Magnesium 2.2 Chest Bilateral expiratory wheezing has improved from my previous exams Minimal rhonchi No rales No accessory muscle use Cor RRR Abd Soft non-tender Left pre-auricular facial mass 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 Fe and Ferritin noted On NOAC as noted Positive urine culture with 70K CFU of Staph Epidermidis Likely contaminant Follow clinically Hiatal Hernia Noted on chest CT Left renal cyst/mass Noted on CT Compression fracture T11 Continue current Rx Slow corticosteroid taper
[2016-08-23] MEDS: ALBUTEROL SO4 2.5/IPRATROPIUM 0.5 INH SOL 3 ML VIAL.NEB. NEB SCH ×3 (06:51→22:33)
[2016-08-23] MEDS ORDERED: PT OWN MED DRAWER 7, Y5N ONE ×2 (10:36→22:20)
[2016-08-23] MEDS: NIFEdipine E.R 60 MG TABLET (UD) PO SCH (10:39)
[2016-08-23] MEDS: ENALAPRIL MALEATE 10 MG TABLET (FP) PO SCH ×2 (10:39→22:28)
[2016-08-23] MEDS: APIXABAN 5 MG TABLET PO SCH ×2 (10:39→22:25)
[2016-08-23] MEDS: DOCUSATE SODIUM 100 MG CAPSULE (FP) PO SCH ×2 (10:40→22:24)
[2016-08-23] MEDS: predniSONE 20 MG TABLET (UD) PO SCH (10:40)
[2016-08-23] MEDS: METOPROLOL SUCCINATE 25 MG TAB.SR.24H (FP) PO SCH ×2 (10:40→22:27)
[2016-08-23] MEDS: FOLIC ACID 1 MG TABLET (FP) PO SCH (10:40)
[2016-08-23] MEDS: POLYETHYLENE GLYCOL 3350 119 GM BTL PO SCH ×2 (10:41→22:27)
--- NOTE | 2016-08-23 11:02 | PN ---
Progress Note (short form) - Note Progress Note: Patient seen and examined Chart reviewed. Currently lying supine in bed with head raised, alert and appropriate.. Cough persists but improved with less expiratory wheezing. Denies new chest discomfort palpitations or pre-syncope. No new GI symptoms. Labs and medication list reviewed. Appetite decreased Selected Entries 08/22/16 08/23/16 21:00 10:31 Temperature 98.7 F Pulse Rate 62 Respiratory 24 Rate Blood Pressure 132/53 O2 Sat by Pulse 97 Oximetry (%) Oxygen Delivery Nasal Cannula Method Oxygen Flow 2 Rate Laboratory Tests 08/22/16 08/22/16 06:30 06:30 WBC 14.0 H Hgb 9.5 L Hct 29.8 L Plt Count 237 Sodium 140 Potassium 5.3 H Chloride 105 Carbon Dioxide 25 BUN 33 H Creatinine 1.0 Random Glucose 108 H Calcium 7.7 L Phosphorus 4.0 Magnesium 2.2 Chest Bilateral expiratory wheezing improved overall No rhonchi No rales No accessory muscle use Cor RRR Abd Soft non-tender Left pre-auricular facial mass 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 Fe and Ferritin noted On NOAC as noted Positive urine culture with 70K CFU of Staph Epidermidis Likely contaminant Follow clinically Hiatal Hernia Noted on chest CT Left renal cyst/mass Noted on CT Compression fracture T11 Continue current Rx Slow corticosteroid taper
[2016-08-23] MEDS: ATORVASTATIN CA 40 MG TABLET (FP) PO SCH (22:25)
[2016-08-24] MEDS: ALBUTEROL SO4 2.5/IPRATROPIUM 0.5 INH SOL 3 ML VIAL.NEB. NEB SCH ×2 (07:11→14:25)
[2016-08-24] MEDS ORDERED: PT OWN MED DRAWER 7, Y5N ONE (09:28)
[2016-08-24] MEDS: FOLIC ACID 1 MG TABLET (FP) PO SCH (09:30)
[2016-08-24] MEDS: NIFEdipine E.R 60 MG TABLET (UD) PO SCH (09:31)
[2016-08-24] MEDS: APIXABAN 5 MG TABLET PO SCH ×2 (09:31→21:12)
[2016-08-24] MEDS: METOPROLOL SUCCINATE 25 MG TAB.SR.24H (FP) PO SCH ×2 (09:31→21:16)
[2016-08-24] MEDS: ENALAPRIL MALEATE 10 MG TABLET (FP) PO SCH ×2 (09:31→21:17)
[2016-08-24] MEDS: DOCUSATE SODIUM 100 MG CAPSULE (FP) PO SCH ×2 (09:31→21:12)
[2016-08-24] MEDS: POLYETHYLENE GLYCOL 3350 119 GM BTL PO SCH ×2 (09:32→21:16)
[2016-08-24] MEDS ORDERED: predniSONE 20 MG TABLET (UD) PO SCH (10:00)
--- NOTE | 2016-08-24 10:43 | PN ---
Progress Note (short form) - Note Progress Note: Patient seen and examined Chart reviewed. Currently lying supine in bed with head raised, alert and appropriate. Cough persists but improved overall with less expiratory wheezing. Denies new chest discomfort palpitations or pre- syncope. No new GI symptoms. Labs and medication list reviewed. 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 Fe and Ferritin noted On NOAC as noted Positive urine culture with 70K CFU of Staph Epidermidis Likely contaminant Follow clinically Hiatal Hernia Noted on chest CT Left renal cyst/mass Noted on CT Compression fracture T11 Continue current Rx Continue slow corticosteroid taper. Increase activity as tolerated Discharge planning
[2016-08-24] MEDS: ATORVASTATIN CA 40 MG TABLET (FP) PO SCH (21:12)
[2016-08-25 07:03] LABS: BASOPHIL 0.2 % (0-2.0); EOSINOPHIL 0.1 % (0-4.5); MCHC 31.6 g/dl (32.0-36.0); MEAN CELL VOLUME 79.3 fl (80-96); MEAN PLT VOLUME 10.1 fl (7.5-11.1); NEUTROPHILS 86.7 % (42.8-82.8); PLATELET COUNT 199 K/MM3 (134-434); RDW 17.9 % (11.6-15.6); WHITE BLOOD COUNT 13.4 K/mm3 (4.0-10.0)
[2016-08-25 07:43] LABS: ALBUMIN 2.3 g/dl (3.4-5.0); BILIRUBIN,TOTAL 0.3 mg/dL (0.2-1.0); CALCIUM 7.5 mg/dL (8.5-10.1); TOT PROT 4.4 g/dl (6.4-8.2)
[2016-08-25] MEDS ORDERED: PT OWN MED DRAWER 7, Y5N ONE ×2 (10:15→21:04)
[2016-08-25] MEDS: NIFEdipine E.R 60 MG TABLET (UD) PO SCH (10:30)
[2016-08-25] MEDS: DOCUSATE SODIUM 100 MG CAPSULE (FP) PO SCH ×2 (10:30→22:05)
[2016-08-25] MEDS: FOLIC ACID 1 MG TABLET (FP) PO SCH (10:30)
[2016-08-25] MEDS: APIXABAN 5 MG TABLET PO SCH ×2 (10:30→22:06)
[2016-08-25] MEDS: predniSONE 20 MG TABLET (UD) PO SCH (10:31)
[2016-08-25] MEDS: ENALAPRIL MALEATE 10 MG TABLET (FP) PO SCH (10:31)
[2016-08-25] MEDS: POLYETHYLENE GLYCOL 3350 119 GM BTL PO SCH ×2 (10:32→22:06)
[2016-08-25] MEDS: METOPROLOL SUCCINATE 25 MG TAB.SR.24H (FP) PO SCH ×2 (10:32→22:07)
[2016-08-25] MEDS ORDERED: guaiFENesin/CODEINE 5 ML UNIT-DOSE CUPS PO PRN (13:39)
[2016-08-25] MEDS: PANTOPRAZOLE 40 MG TABLET (FP) PO SCH (14:01)
[2016-08-25] MEDS: ALBUTEROL SO4 2.5/IPRATROPIUM 0.5 INH SOL 3 ML VIAL.NEB. NEB PRN ×2 (15:13→22:35)
--- NOTE | 2016-08-25 16:52 | PN ---
Progress Note, Physician Chief Complaint: Ms Stallings continues to complain of coughing and wheezing. No cp, sob, n/v. - Current Medication List Current Medications: Active Medications Acetaminophen (Tylenol -) 650 mg PO Q4H PRN PRN Reason: FEVER OR PAIN Albuterol/Ipratropium (Duoneb -) 1 amp NEB Q6H PRN PRN Reason: SHORTNESS OF BREATH Last Admin: 08/25/16 15:13 Dose: 1 amp Apixaban (Eliquis -) 5 mg PO BID [facility] Last Admin: 08/25/16 10:30 Dose: 5 mg Atorvastatin Calcium (Lipitor -) 40 mg PO HS [facility] Last Admin: 08/24/16 21:12 Dose: 40 mg Docusate Sodium (Colace -) 100 mg PO BID [facility] Last Admin: 08/25/16 10:30 Dose: 100 mg Folic Acid (Folic Acid -) 1 mg PO DAILY [facility] Last Admin: 08/25/16 10:30 Dose: 1 mg Guaifenesin/Codeine Phosphate (Robitussin Ac -) 5 ml PO TID PRN PRN Reason: COUGH Last Admin: 08/25/16 14:01 Dose: 5 ml Losartan Potassium (Cozaar -) 100 mg PO DAILY [facility] Metoprolol Succinate (Toprol Xl -) 25 mg PO BID [facility] Last Admin: 08/25/16 10:32 Dose: 25 mg Nifedipine (Procardia Xl -) 60 mg PO DAILY [facility] Last Admin: 08/25/16 10:30 Dose: 60 mg Pantoprazole Sodium (Protonix -) 40 mg PO DAILY [facility] Last Admin: 08/25/16 14:01 Dose: 40 mg Polyethylene Glycol (Miralax (For Daily Use) -) 17 gm PO BID [facility] Last Admin: 08/25/16 10:32 Dose: Not Given Prednisone (Deltasone -) 30 mg PO DAILY [facility] Last Admin: 08/25/16 10:31 Dose: 30 mg - Objective Vital Signs: Vital Signs Temperature 98.8 F 08/25/16 15:44 Pulse Rate 68 08/25/16 15:44 Respiratory Rate 18 08/25/16 15:44 Blood Pressure 110/43 08/25/16 15:44 O2 Sat by Pulse Oximetry (%) 95 08/25/16 15:05 Constitutional: Yes: Well Nourished, No Distress, Calm HENT: Yes: Other (L facial mass) Cardiovascular: Yes: Regular Rate and Rhythm. No: Murmur, Rub Respiratory: Yes: Regular, Cough (dry), Wheezes. No: Rales, Rhonchi Gastrointestinal: Yes: Normal Bowel Sounds, Soft. No: Distention, Tenderness Extremities: Yes: WNL Edema: No Labs: CBC, BMP 08/25/16 06:15 08/25/16 06:15 INR, PTT INR 1.04 (0.82-1.09) 08/07/16 00:06 Problem List - Problems (1) Bronchitis Code(s): J40 - BRONCHITIS, NOT SPECIFIED ACUTE OR CHRONIC (2) DVT (deep venous thrombosis) Code(s): I82.409 - ACUTE EMBOLISM AND THOMBOS UNSP DEEP VN UNSP LOWER EXTREMITY (3) HLD (hyperlipidemia) Code(s): E78.5 - HYPERLIPIDEMIA, UNSPECIFIED (4) HTN (hypertension) Code(s): I10 - ESSENTIAL (PRIMARY) HYPERTENSION (5) Atrial fibrillation Code(s): I48.91 - UNSPECIFIED ATRIAL FIBRILLATION Qualifiers: Atrial fibrillation type: paroxysmal Qualified Code(s): I48.0 - Paroxysmal atrial fibrillation Assessment/Plan (1) Bronchitis Assessment/Plan: -secondary to RSV -however patient still with dry cough, should be resolving -patient also on enalapril -will change enalapril to losartan for possible ACEI cough -robitussin AC prn -continue prn duonebs -continue prednisone with taper -patient saturating well on RA, d/c oxygen Code(s): J98.11 - ATELECTASIS (2) DVT (deep venous thrombosis) Assessment/Plan: -continue eliquis Code(s): I82.409 - ACUTE EMBOLISM AND THOMBOS UNSP DEEP VN UNSP LOWER EXTREMITY (3) HLD (hyperlipidemia) Assessment/Plan: -continue lipitor Code(s): E78.5 - HYPERLIPIDEMIA, UNSPECIFIED (4) HTN (hypertension) Assessment/Plan: -continue toprol xl and nifedipine -change enalapril to losartan for possible ACEI cough Code(s): I10 - ESSENTIAL (PRIMARY) HYPERTENSION (5) Atrial fibrillation Assessment/Plan: -currently sounds in sinus rhythm -continue eliquis Code(s): I48.91 - UNSPECIFIED ATRIAL FIBRILLATION Qualifiers: Atrial fibrillation type: paroxysmal Qualified Code(s): I48.0 - Paroxysmal atrial fibrillation
[2016-08-25] MEDS: ATORVASTATIN CA 40 MG TABLET (FP) PO SCH (22:06)
[2016-08-26 08:22] LABS: BASOPHIL 0.2 % (0-2.0); EOSINOPHIL 0.1 % (0-4.5); MCH 24.9 pg (25.7-33.7); MCHC 31.5 g/dl (32.0-36.0); MEAN CELL VOLUME 79.1 fl (80-96); MEAN PLT VOLUME 10.4 fl (7.5-11.1); NEUTROPHILS 90.4 % (42.8-82.8); PLATELET COUNT 197 K/MM3 (134-434); RDW 17.6 % (11.6-15.6); WHITE BLOOD COUNT 16.9 K/mm3 (4.0-10.0)
[2016-08-26 08:46] LABS: CALCIUM 7.7 mg/dL (8.5-10.1); CREATININE 1.1 mg/dL (0.55-1.02); MAGNESIUM 2.3 mg/dL (1.8-2.4); PHOSPHOROUS 4.3 mg/dL (2.5-4.9)
[2016-08-26] MEDS ORDERED: LOSARTAN POTASSIUM 50 MG TABLET (FP) PO SCH (10:00)
[2016-08-26] MEDS: POLYETHYLENE GLYCOL 3350 119 GM BTL PO SCH ×2 (10:10→22:22)
[2016-08-26] MEDS: NIFEdipine E.R 60 MG TABLET (UD) PO SCH (10:10)
[2016-08-26] MEDS: predniSONE 20 MG TABLET (UD) PO SCH (10:10)
[2016-08-26] MEDS: DOCUSATE SODIUM 100 MG CAPSULE (FP) PO SCH ×2 (10:10→22:20)
[2016-08-26] MEDS: PANTOPRAZOLE 40 MG TABLET (FP) PO SCH (10:10)
[2016-08-26] MEDS: FOLIC ACID 1 MG TABLET (FP) PO SCH (10:10)
[2016-08-26] MEDS: APIXABAN 5 MG TABLET PO SCH ×2 (10:10→22:21)
[2016-08-26] MEDS: METOPROLOL SUCCINATE 25 MG TAB.SR.24H (FP) PO SCH ×2 (10:10→22:22)
--- NOTE | 2016-08-26 12:13 | PN ---
Progress Note, Physician Chief Complaint: Ms Stallings had a fall today. She tripped over a wire and fell. She did not hit her head. She is not having any pain and has full range of motion of all joints. Still with wheezing and coughing but improved. No cp or n/v. - Current Medication List Current Medications: Active Medications Acetaminophen (Tylenol -) 650 mg PO Q4H PRN PRN Reason: FEVER OR PAIN Albuterol/Ipratropium (Duoneb -) 1 amp NEB Q6H PRN PRN Reason: SHORTNESS OF BREATH Last Admin: 08/25/16 22:35 Dose: 1 amp Apixaban (Eliquis -) 5 mg PO BID [facility] Last Admin: 08/26/16 10:10 Dose: 5 mg Atorvastatin Calcium (Lipitor -) 40 mg PO HS [facility] Last Admin: 08/25/16 22:06 Dose: 40 mg Docusate Sodium (Colace -) 100 mg PO BID [facility] Last Admin: 08/26/16 10:10 Dose: 100 mg Folic Acid (Folic Acid -) 1 mg PO DAILY [facility] Last Admin: 08/26/16 10:10 Dose: 1 mg Guaifenesin/Codeine Phosphate (Robitussin Ac -) 5 ml PO TID PRN PRN Reason: COUGH Last Admin: 08/25/16 14:01 Dose: 5 ml Losartan Potassium (Cozaar -) 100 mg PO DAILY [facility] Last Admin: 08/26/16 10:10 Dose: 100 mg Metoprolol Succinate (Toprol Xl -) 25 mg PO BID [facility] Last Admin: 08/26/16 10:10 Dose: 25 mg Nifedipine (Procardia Xl -) 60 mg PO DAILY [facility] Last Admin: 08/26/16 10:10 Dose: 60 mg Pantoprazole Sodium (Protonix -) 40 mg PO DAILY [facility] Last Admin: 08/26/16 10:10 Dose: 40 mg Polyethylene Glycol (Miralax (For Daily Use) -) 17 gm PO BID [facility] Last Admin: 08/26/16 10:10 Dose: Not Given Prednisone (Deltasone -) 30 mg PO DAILY [facility] Last Admin: 08/26/16 10:10 Dose: 30 mg - Objective Vital Signs: Vital Signs Temperature 98.6 F 08/26/16 10:20 Pulse Rate 82 08/26/16 10:59 Respiratory Rate 20 08/26/16 10:20 Blood Pressure 118/50 08/26/16 10:20 O2 Sat by Pulse Oximetry (%) 93 L 08/26/16 10:59 Constitutional: Yes: Well Nourished, No Distress, Calm HENT: Yes: Other (L facial mass) Cardiovascular: Yes: Regular Rate and Rhythm. No: Gallop, Murmur, Rub Respiratory: Yes: Regular, Wheezes (minimal). No: On Nasal O2, Rales, Rhonchi Gastrointestinal: Yes: Normal Bowel Sounds, Soft. No: Distention, Tenderness Extremities: Yes: WNL Edema: No Labs: CBC, BMP 08/26/16 07:00 08/26/16 07:00 INR, PTT INR 1.04 (0.82-1.09) 08/07/16 00:06 Problem List - Problems (1) Bronchitis Code(s): J40 - BRONCHITIS, NOT SPECIFIED ACUTE OR CHRONIC (2) DVT (deep venous thrombosis) Code(s): I82.409 - ACUTE EMBOLISM AND THOMBOS UNSP DEEP VN UNSP LOWER EXTREMITY (3) HLD (hyperlipidemia) Code(s): E78.5 - HYPERLIPIDEMIA, UNSPECIFIED (4) HTN (hypertension) Code(s): I10 - ESSENTIAL (PRIMARY) HYPERTENSION (5) Atrial fibrillation Code(s): I48.91 - UNSPECIFIED ATRIAL FIBRILLATION Qualifiers: Atrial fibrillation type: paroxysmal Qualified Code(s): I48.0 - Paroxysmal atrial fibrillation Assessment/Plan (1) Bronchitis Assessment/Plan: -much improved today -stopped enalapril, coughing much improved -wheezing much improved as well -stable on room air -continue prednisone, change to 20mg tomorrow Code(s): J98.11 - ATELECTASIS (2) DVT (deep venous thrombosis) Assessment/Plan: -continue eliquis Code(s): I82.409 - ACUTE EMBOLISM AND THOMBOS UNSP DEEP VN UNSP LOWER EXTREMITY (3) HLD (hyperlipidemia) Assessment/Plan: -continue lipitor Code(s): E78.5 - HYPERLIPIDEMIA, UNSPECIFIED (4) HTN (hypertension) Assessment/Plan: -continue toprol xl and nifedipine -continue losartan Code(s): I10 - ESSENTIAL (PRIMARY) HYPERTENSION (5) Atrial fibrillation Assessment/Plan: -currently sounds in sinus rhythm -continue eliquis Code(s): I48.91 - UNSPECIFIED ATRIAL FIBRILLATION Qualifiers: Atrial fibrillation type: paroxysmal Qualified Code(s): I48.0 - Paroxysmal atrial fibrillation (6) Fall -patient with mechanical fall -unable to discharge today, will monitor for 24 hours -fall precautions Dispo -plan for discharge tomorrow to SNF
[2016-08-26] MEDS ORDERED: SODIUM CHLORIDE 500 ML IV STA (13:14)
[2016-08-26] MEDS ORDERED: SODIUM CHLORIDE 0.9% 500 ML INFUS.BAG IV ONE (17:30)
[2016-08-26] MEDS ORDERED: PT OWN MED DRAWER 7, Y5N ONE (22:00)
[2016-08-26] MEDS: ATORVASTATIN CA 40 MG TABLET (FP) PO SCH (22:21)
[2016-08-27 05:32] LABS: BASOPHIL 0.1 % (0-2.0); EOSINOPHIL 0.6 % (0-4.5); MCH 24.8 pg (25.7-33.7); MCHC 31.2 g/dl (32.0-36.0); MEAN CELL VOLUME 79.3 fl (80-96); MEAN PLT VOLUME 10.5 fl (7.5-11.1); NEUTROPHILS 86.3 % (42.8-82.8); PLATELET COUNT 216 K/MM3 (134-434); RDW 18.2 % (11.6-15.6); WHITE BLOOD COUNT 16.8 K/mm3 (4.0-10.0)
[2016-08-27 06:12] LABS: CALCIUM 7.3 mg/dL (8.5-10.1); MAGNESIUM 2.2 mg/dL (1.8-2.4); PHOSPHOROUS 3.5 mg/dL (2.5-4.9)
--- NOTE | 2016-08-27 11:31 | PN ---
Progress Note, Physician Chief Complaint: Ms Stallings had a large bloody bowel movement this morning. No cp, sob, n/v. - Current Medication List Current Medications: Active Medications Acetaminophen (Tylenol -) 650 mg PO Q4H PRN PRN Reason: FEVER OR PAIN Albuterol/Ipratropium (Duoneb -) 1 amp NEB Q6H PRN PRN Reason: SHORTNESS OF BREATH Last Admin: 08/25/16 22:35 Dose: 1 amp Apixaban (Eliquis -) 5 mg PO BID [facility] Last Admin: 08/26/16 22:21 Dose: 5 mg Atorvastatin Calcium (Lipitor -) 40 mg PO HS [facility] Last Admin: 08/26/16 22:21 Dose: 40 mg Docusate Sodium (Colace -) 100 mg PO BID [facility] Last Admin: 08/26/16 22:20 Dose: 100 mg Folic Acid (Folic Acid -) 1 mg PO DAILY [facility] Last Admin: 08/26/16 10:10 Dose: 1 mg Guaifenesin/Codeine Phosphate (Robitussin Ac -) 5 ml PO TID PRN PRN Reason: COUGH Last Admin: 08/25/16 14:01 Dose: 5 ml Sodium Chloride (Normal Saline -) 1,000 mls @ 60 mls/hr IV [facility] Losartan Potassium (Cozaar -) 50 mg PO DAILY [facility] Metoprolol Succinate (Toprol Xl -) 25 mg PO BID [facility] Last Admin: 08/26/16 22:22 Dose: 25 mg Nifedipine (Procardia Xl -) 60 mg PO DAILY [facility] Last Admin: 08/26/16 10:10 Dose: 60 mg Pantoprazole Sodium (Protonix -) 40 mg PO DAILY [facility] Last Admin: 08/26/16 10:10 Dose: 40 mg Polyethylene Glycol (Miralax (For Daily Use) -) 17 gm PO BID [facility] Last Admin: 08/26/16 22:22 Dose: 17 gm Prednisone (Deltasone -) 20 mg PO DAILY [facility] - Objective Vital Signs: Vital Signs Temperature 98.8 F 08/27/16 06:00 Pulse Rate 71 08/27/16 06:00 Respiratory Rate 18 08/27/16 06:00 Blood Pressure 152/80 08/27/16 06:00 O2 Sat by Pulse Oximetry (%) 92 L 08/26/16 21:00 Constitutional: Yes: Well Nourished, No Distress, Calm HENT: Yes: Other (L facial mass) Cardiovascular: Yes: Regular Rate and Rhythm. No: Gallop, Murmur, Rub Respiratory: Yes: Regular, Wheezes. No: Rales, Rhonchi Gastrointestinal: Yes: Normal Bowel Sounds, Soft. No: Distention, Tenderness Extremities: Yes: WNL Edema: No Labs: CBC, BMP 08/27/16 05:00 08/27/16 05:00 INR, PTT INR 1.04 (0.82-1.09) 08/07/16 00:06 Problem List - Problems (1) GI bleed Code(s): K92.2 - GASTROINTESTINAL HEMORRHAGE, UNSPECIFIED (2) Anemia Code(s): D64.9 - ANEMIA, UNSPECIFIED (3) Bronchitis Code(s): J40 - BRONCHITIS, NOT SPECIFIED ACUTE OR CHRONIC (4) DVT (deep venous thrombosis) Code(s): I82.409 - ACUTE EMBOLISM AND THOMBOS UNSP DEEP VN UNSP LOWER EXTREMITY (5) HLD (hyperlipidemia) Code(s): E78.5 - HYPERLIPIDEMIA, UNSPECIFIED (6) HTN (hypertension) Code(s): I10 - ESSENTIAL (PRIMARY) HYPERTENSION (7) Atrial fibrillation Code(s): I48.91 - UNSPECIFIED ATRIAL FIBRILLATION Qualifiers: Atrial fibrillation type: paroxysmal Qualified Code(s): I48.0 - Paroxysmal atrial fibrillation Assessment/Plan (1) GIB -patient with [facility] this am -consult GI, concerning for GIB since on eliquis (2) Anemia -secondary to GIB -check H/H this afternoon, possible transfusion (3) Bronchitis Assessment/Plan: -continues to improve -coughing resolved, suspect ACEI induced cough -decrease prednisone to 20mg Code(s): J98.11 - ATELECTASIS (4) DVT (deep venous thrombosis) Assessment/Plan: -hold eliquis currently Code(s): I82.409 - ACUTE EMBOLISM AND THOMBOS UNSP DEEP VN UNSP LOWER EXTREMITY (5) HLD (hyperlipidemia) Assessment/Plan: -continue lipitor Code(s): E78.5 - HYPERLIPIDEMIA, UNSPECIFIED (6) HTN (hypertension) Assessment/Plan: -continue toprol xl and nifedipine -continue losartan Code(s): I10 - ESSENTIAL (PRIMARY) HYPERTENSION (7) Atrial fibrillation Assessment/Plan: -currently sounds in sinus rhythm -continue eliquis Code(s): I48.91 - UNSPECIFIED ATRIAL FIBRILLATION Qualifiers: Atrial fibrillation type: paroxysmal Qualified Code(s): I48.0 - Paroxysmal atrial fibrillation (8) Fall -mechanical -has not recurred
[2016-08-27] MEDS: FOLIC ACID 1 MG TABLET (FP) PO SCH (11:42)
[2016-08-27] MEDS: DOCUSATE SODIUM 100 MG CAPSULE (FP) PO SCH ×2 (11:53→22:54)
[2016-08-27] MEDS: LOSARTAN POTASSIUM 50 MG TABLET (FP) PO SCH (11:53)
[2016-08-27] MEDS: NIFEdipine E.R 60 MG TABLET (UD) PO SCH (11:53)
[2016-08-27] MEDS: METOPROLOL SUCCINATE 25 MG TAB.SR.24H (FP) PO SCH ×2 (11:54→22:55)
[2016-08-27] MEDS: PANTOPRAZOLE 40 MG TABLET (FP) PO SCH (12:06)
--- NOTE | 2016-08-27 12:31 | CON.GI ---
Consult Consult Specialty:: GI Referred by:: Dr. Delacruz Reason for Consultation:: Rectal bleeding - History of Present Illness Chief Complaint: I was bleeding from my rectum History of Present Illness: 89F initially admitted from 07/27/16-08/06/16 for evaluation of [place] and tremors. Diagnosed with a Right LE DVT 08/07/16 and started on eliquis. No admitted from for evaluation of shortness of breath. She is being treated for bronchitis, she is on corticosteroids and maintained on the eliquis. She sustained a fall last night. She was supposed to go home today but then had rectal bleeding last night. She described it as bright red blood without clots and associated with a brown bowel movement, She had a darker bloody bowel movement today. She was hypotensive last night. It appears as though she has been anemic for some time. Hgb 08/25 was 8.9. Hgb this morning after the bleeding episode was 8.2. She was not transfused. She denies associated abdominal pain, nausea, vomiting, lightheadedness. She describes chronic constipation however no strained bowel movements of late. She has never had an upper endoscopy or colonoscopy. There is no family history of colorectal cancer or other GI malignancy. 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) - Past Surgical History Past Surgical History: Yes: None - Alcohol/Substance Use Hx Alcohol Use: Yes (occasional in past) History of Substance Use: reports: None - Smoking History Smoking history: Former smoker (quit over 40 years ago) Have you smoked in the past 12 months: No - Social History Usual Living Arrangement: Alone ADL: Independent 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 [employer] [address] of : [facility] History of Recent Travel: No Home Medications - Allergies Allergies/Adverse Reactions: Allergies Allergy/AdvReac Type Severity Reaction Status Date / Time No Known Allergies Allergy Verified 08/06/16 21:09 - Home Medications Home Medications: Ambulatory Orders Atorvastatin Ca [Lipitor] 40 mg PO DAILY 07/27/16 Enalapril Maleate [Vasotec] 20 mg PO BID 07/27/16 Nifedipine ER [Procardia XL -] 60 mg PO DAILY 07/27/16 Acetaminophen [Tylenol .Regular Strength -] 650 mg PO Q4H PRN #0 tablet Apixaban [Eliquis] 5 mg PO BID #60 tablet 08/06/16 Folic Acid - 1 mg PO DAILY tablet 08/06/16 Metoprolol Succinate [Toprol XL -] 25 mg PO BID tab.sr.24h 08/06/16 Family Disease History - Family Disease History Family Disease History: Other: Father ( 70's, unclear cause), Mother ( 96 "old age"), Brother (2 bros, 1 killed in WWII, 1 from ulcer complication ), Son (No children), Daughter (No children) Other Family History: No family history of colorectal cancer or other GI malignancy Review of Systems - Review of Systems Constitutional: denies: Fever, Unintentional Wgt. Loss Cardiovascular: denies: Chest Pain Respiratory: reports: SOB, SOB on Exertion, Wheezing Gastrointestinal: reports: Constipation, Rectal Bleeding. denies: Abdominal Pain, Bloating, Diarrhea, Dysphagia, Indigestion, Melena, Nausea, Vomiting, Vomiting Blood Physical Exam-GI Vital Signs: Vital Signs Temperature 98.8 F 08/27/16 10:00 Pulse Rate 68 08/27/16 10:00 Respiratory Rate 18 08/27/16 10:00 Blood Pressure 139/50 08/27/16 10:00 O2 Sat by Pulse Oximetry (%) 92 L 08/26/16 21:00 Constitutional: Yes: Well Nourished, Calm Eyes: No: Sclera Icterus Cardiovascular: Yes: Regular Rate and Rhythm. No: Murmur Respiratory: Yes: CTA Bilaterally Labs: CBC, BMP 08/27/16 05:00 08/27/16 05:00 INR, PTT INR 1.04 (0.82-1.09) 08/07/16 00:06 Problem List - Problems (1) Rectal bleed Assessment/Plan: Patient currently hemodynamically stable. She has a baseline anemia of etiology with an unprovoked DVT of ? etiology and is to be maintained on anticoagulation. There are multiple possible etiologies of her rectal bleeding all of which could have been potentiated by her steroid/anticoagulation therapy. I explained this to Deepika Haylie and explained that cancer of the intestinal tract such as colon cancer would need to be included (especially in the setting of a chronic anemia and unprovoked DVT). We discussed EGD / colonoscopy as her eliquis has been held today prior to discharge to look for potential sources as she will be on A/C. We discussed potential risks of the procedure like but not limited to bleeding, perforation requiring surgery to repair, infection, sedation medication effects all of which could be potentially life threatening. She has agreed to the procedures. Monitor H/H. If continued bleeding / change in hemodynamics, transfer to ICU Clear liquids Code(s): K62.5 - HEMORRHAGE OF ANUS AND RECTUM
[2016-08-27] MEDS: predniSONE 20 MG TABLET (UD) PO SCH ×2 (12:56→12:58)
[2016-08-27] MEDS ORDERED: BISACODYL 5 MG TABLET.DR (FP) PO ONE (15:00)
[2016-08-27] MEDS ORDERED: POLYETHYLENE GLYCOL 3350 255 GM BTL PO ONE (16:00)
[2016-08-27 16:03] LABS: MCH 24.5 pg (25.7-33.7); MCHC 30.7 g/dl (32.0-36.0); MEAN CELL VOLUME 79.6 fl (80-96); MEAN PLT VOLUME 10.4 fl (7.5-11.1); PLATELET COUNT 186 K/MM3 (134-434); WHITE BLOOD COUNT 12.1 K/mm3 (4.0-10.0)
[2016-08-27] MEDS ORDERED: PT OWN MED DRAWER 7, Y5N ONE (22:12)
[2016-08-27] MEDS: POLYETHYLENE GLYCOL 3350 119 GM BTL PO SCH ×3 (22:54→22:59)
[2016-08-27] MEDS: ATORVASTATIN CA 40 MG TABLET (FP) PO SCH (22:54)
[2016-08-28] MEDS: SODIUM CHLORIDE 1,000 ML IV SCH ×2 (06:24→17:12)
[2016-08-28 08:16] LABS: BASOPHIL 0.2 % (0-2.0); EOSINOPHIL 0.5 % (0-4.5); MCH 25.8 pg (25.7-33.7); MCHC 32.4 g/dl (32.0-36.0); MEAN CELL VOLUME 79.5 fl (80-96); MEAN PLT VOLUME 10.1 fl (7.5-11.1); NEUTROPHILS 83.3 % (42.8-82.8); PLATELET COUNT 166 K/MM3 (134-434); RDW 17.1 % (11.6-15.6)
[2016-08-28 08:28] LABS: INR 1.01 (0.82-1.09); PROTHROMBIN TIME (PATIENT) 11.1 SEC (9.98-11.88)
[2016-08-28 08:41] LABS: CALCIUM 7.4 mg/dL (8.5-10.1); MAGNESIUM 1.9 mg/dL (1.8-2.4)
[2016-08-28 08:42] LABS: PHOSPHOROUS 3.7 mg/dL (2.5-4.9)
[2016-08-28] MEDS: LOSARTAN POTASSIUM 50 MG TABLET (FP) PO SCH (10:00)
[2016-08-28] MEDS: METOPROLOL SUCCINATE 25 MG TAB.SR.24H (FP) PO SCH ×2 (10:00→21:47)
[2016-08-28] MEDS: NIFEdipine E.R 60 MG TABLET (UD) PO SCH (10:00)
[2016-08-28] MEDS: predniSONE 20 MG TABLET (UD) PO SCH (10:48)
[2016-08-28] MEDS: PANTOPRAZOLE 40 MG TABLET (FP) PO SCH (10:48)
[2016-08-28] MEDS: FOLIC ACID 1 MG TABLET (FP) PO SCH (10:48)
[2016-08-28] MEDS: DOCUSATE SODIUM 100 MG CAPSULE (FP) PO SCH ×2 (10:50→21:46)
[2016-08-28] MEDS: POLYETHYLENE GLYCOL 3350 119 GM BTL PO SCH ×2 (10:57→21:47)
--- NOTE | 2016-08-28 12:41 | PN ---
Progress Note, Physician Chief Complaint: Ms Stallings says she is feeling weak, has not had further bleeding. No cp, sob , n/v. - Current Medication List Current Medications: Active Medications Acetaminophen (Tylenol -) 650 mg PO Q4H PRN PRN Reason: FEVER OR PAIN Albuterol/Ipratropium (Duoneb -) 1 amp NEB Q6H PRN PRN Reason: SHORTNESS OF BREATH Last Admin: 08/25/16 22:35 Dose: 1 amp Atorvastatin Calcium (Lipitor -) 40 mg PO HS [facility] Last Admin: 08/27/16 22:54 Dose: 40 mg Docusate Sodium (Colace -) 100 mg PO BID [facility] Last Admin: 08/28/16 10:50 Dose: 100 mg Folic Acid (Folic Acid -) 1 mg PO DAILY [facility] Last Admin: 08/28/16 10:48 Dose: 1 mg Guaifenesin/Codeine Phosphate (Robitussin Ac -) 5 ml PO TID PRN PRN Reason: COUGH Last Admin: 08/25/16 14:01 Dose: 5 ml Sodium Chloride (Normal Saline -) 1,000 mls @ 60 mls/hr IV ASDIR [facility] Last Admin: 08/28/16 06:24 Dose: 60 mls/hr Losartan Potassium (Cozaar -) 50 mg PO DAILY [facility] Last Admin: 08/27/16 11:53 Dose: Not Given Metoprolol Succinate (Toprol Xl -) 25 mg PO BID [facility] Last Admin: 08/27/16 22:55 Dose: 25 mg Nifedipine (Procardia Xl -) 60 mg PO DAILY [facility] Last Admin: 08/27/16 11:53 Dose: Not Given Pantoprazole Sodium (Protonix -) 40 mg PO DAILY [facility] Last Admin: 08/28/16 10:48 Dose: 40 mg Polyethylene Glycol (Miralax (For Daily Use) -) 17 gm PO BID [facility] Last Admin: 08/27/16 22:59 Dose: 17 gm Prednisone (Deltasone -) 20 mg PO DAILY [facility] Last Admin: 08/28/16 10:48 Dose: 20 mg - Objective Vital Signs: Vital Signs Temperature 98.3 F 08/28/16 10:00 Pulse Rate 96 H 08/28/16 10:00 Respiratory Rate 20 08/28/16 10:00 Blood Pressure 135/62 08/28/16 10:00 O2 Sat by Pulse Oximetry (%) 95 08/27/16 21:00 Constitutional: Yes: Well Nourished, No Distress, Calm Cardiovascular: Yes: Regular Rate and Rhythm. No: Gallop, Murmur, Rub Respiratory: Yes: Regular, CTA Bilaterally. No: Rales, Rhonchi, Wheezes Gastrointestinal: Yes: Normal Bowel Sounds, Soft. No: Distention, Tenderness Extremities: Yes: WNL Edema: No Labs: CBC, BMP 08/28/16 07:00 08/28/16 07:00 INR, PTT INR 1.01 (0.82-1.09) 08/28/16 07:00 Problem List - Problems (1) GI bleed Code(s): K92.2 - GASTROINTESTINAL HEMORRHAGE, UNSPECIFIED (2) Anemia Code(s): D64.9 - ANEMIA, UNSPECIFIED (3) Bronchitis Code(s): J40 - BRONCHITIS, NOT SPECIFIED ACUTE OR CHRONIC (4) DVT (deep venous thrombosis) Code(s): I82.409 - ACUTE EMBOLISM AND THOMBOS UNSP DEEP VN UNSP LOWER EXTREMITY (5) HLD (hyperlipidemia) Code(s): E78.5 - HYPERLIPIDEMIA, UNSPECIFIED (6) HTN (hypertension) Code(s): I10 - ESSENTIAL (PRIMARY) HYPERTENSION (7) Atrial fibrillation Code(s): I48.91 - UNSPECIFIED ATRIAL FIBRILLATION Qualifiers: Atrial fibrillation type: paroxysmal Qualified Code(s): I48.0 - Paroxysmal atrial fibrillation Assessment/Plan (1) GIB -appears resolved -GI planning for EGD today -currently holding eliquis (2) Anemia -secondary to GIB -required transfusion overnight -monitor (3) Bronchitis Assessment/Plan: -continues to improve -coughing resolved, suspect ACEI induced cough -continue prednisone 20mg, day 2 -taper prednisone after 3 days of 20mg Code(s): J98.11 - ATELECTASIS (4) DVT (deep venous thrombosis) Assessment/Plan: -hold eliquis currently Code(s): I82.409 - ACUTE EMBOLISM AND THOMBOS UNSP DEEP VN UNSP LOWER EXTREMITY (5) HLD (hyperlipidemia) Assessment/Plan: -continue lipitor Code(s): E78.5 - HYPERLIPIDEMIA, UNSPECIFIED (6) HTN (hypertension) Assessment/Plan: -continue toprol xl and nifedipine -continue losartan Code(s): I10 - ESSENTIAL (PRIMARY) HYPERTENSION (7) Atrial fibrillation Assessment/Plan: -currently sounds in sinus rhythm -continue eliquis Code(s): I48.91 - UNSPECIFIED ATRIAL FIBRILLATION Qualifiers: Atrial fibrillation type: paroxysmal Qualified Code(s): I48.0 - Paroxysmal atrial fibrillation (8) Fall -mechanical -has not recurred
[2016-08-28] MEDS ORDERED: METOPROLOL TARTRATE 5 MG/5 ML VIAL ONE (14:33)
[2016-08-28] MEDS ORDERED: ESMOLOL HCL 10 ML ONE (14:33)
--- NOTE | 2016-08-28 17:44 | PN ---
Progress Note (short form) - Note Progress Note: GI Procedure Note: Please see EGD and colonoscopy reports. The bleeding appears to have been emanating from a large sigmoid polyp which was removed. Five polyps in total were removed so no anticoagulation should be given for the next 5 days. I discussed the results with Merissa.
[2016-08-28] MEDS: ATORVASTATIN CA 40 MG TABLET (FP) PO SCH (21:46)
[2016-08-29 07:27] LABS: BASOPHIL 0.2 % (0-2.0); EOSINOPHIL 0.7 % (0-4.5); MCH 26.2 pg (25.7-33.7); MCHC 33.1 g/dl (32.0-36.0); MEAN PLT VOLUME 9.9 fl (7.5-11.1); NEUTROPHILS 82.1 % (42.8-82.8); PLATELET COUNT 155 K/MM3 (134-434); RDW 16.8 % (11.6-15.6); WHITE BLOOD COUNT 9.6 K/mm3 (4.0-10.0)
[2016-08-29 08:03] LABS: CALCIUM 7.7 mg/dL (8.5-10.1); CREATININE 1.1 mg/dL (0.55-1.02); MAGNESIUM 1.8 mg/dL (1.8-2.4); PHOSPHOROUS 3.6 mg/dL (2.5-4.9)
[2016-08-29] MEDS: SODIUM CHLORIDE 1,000 ML IV SCH (09:31)
--- NOTE | 2016-08-29 10:04 | PN ---
Progress Note (short form) - Note Progress Note: Patient seen and examined Chart reviewed. Currently lying supine in bed with head raised, alert and appropriate. Cough improved with less expiratory wheezing. Denies new chest discomfort palpitations or pre-syncope. Underwent EGD and Colonoscopy with removal of several polyps including one sigmoid polyp likely to have been related to the rectal bleeding described earlier. Labs, internet consultant notes, procedure notes and medication list reviewed. Appetite decreased. No further bleeding Remains off of anticoagulation Selected Entries 08/28/16 08/29/16 21:00 06:00 Temperature 98.9 F Pulse Rate 120 H Respiratory 20 Rate Blood Pressure 138/70 O2 Sat by Pulse 95 Oximetry (%) Oxygen Delivery Nasal Cannula Method Oxygen Flow 2 Rate Laboratory Tests 08/29/16 08/29/16 06:20 06:20 WBC 9.6 Hgb 9.1 L Hct 27.5 L Plt Count 155 Sodium 145 Potassium 4.0 Chloride 111 H Carbon Dioxide 27 BUN 17 D Creatinine 1.1 H Random Glucose 74 Calcium 7.7 L Phosphorus 3.6 Magnesium 1.8 Chest Bilateral end-expiratory wheezing improved overall No rhonchi No rales No accessory muscle use Cor Irregular this AM Abd Soft non-tender Left pre-auricular facial mass unchanged Possible parotid tumor Ext No edema No evidence of active thrombophlebitis Neuro No focal deficit Assessment and Plan Pneumonitis/Bronchitis Likely related to RSV Continue treatment with corticosteroids Slow taper continues H/O DVT Stable HPL Stable HTN Stable H/O AFib Continue Eliquis after several days as per GI note Rectal bleeding with resultant anemia See endoscopy notes Anemia 10.0/32.0>>9.6/30.4>>>9.5/29.8>>9.1/27.5 Monitor. Off NOAC as noted Positive urine culture with 70K CFU of Staph Epidermidis Likely contaminant Follow clinically Hiatal Hernia Noted on chest CT Left renal cyst/mass Noted on CT Compression fracture T11 Continue current Rx Continue slow corticosteroid taper. Increase activity as tolerated Discharge planning Monitor H/H Resume NOAC later this week
[2016-08-29] MEDS: PANTOPRAZOLE 40 MG TABLET (FP) PO SCH (11:28)
[2016-08-29] MEDS: NIFEdipine E.R 60 MG TABLET (UD) PO SCH (11:28)
[2016-08-29] MEDS: LOSARTAN POTASSIUM 50 MG TABLET (FP) PO SCH (11:28)
[2016-08-29] MEDS: FOLIC ACID 1 MG TABLET (FP) PO SCH (11:28)
[2016-08-29] MEDS: METOPROLOL SUCCINATE 25 MG TAB.SR.24H (FP) PO SCH ×2 (11:28→22:28)
[2016-08-29] MEDS: DOCUSATE SODIUM 100 MG CAPSULE (FP) PO SCH ×2 (11:28→22:26)
[2016-08-29] MEDS: predniSONE 20 MG TABLET (UD) PO SCH (11:28)
[2016-08-29] MEDS: POLYETHYLENE GLYCOL 3350 119 GM BTL PO SCH ×2 (11:29→22:27)
[2016-08-29] MEDS: ATORVASTATIN CA 40 MG TABLET (FP) PO SCH (22:26)
[2016-08-30 08:48] LABS: BASOPHIL 0.6 % (0-2.0); EOSINOPHIL 0.4 % (0-4.5); MCH 26.3 pg (25.7-33.7); MCHC 32.4 g/dl (32.0-36.0); MEAN CELL VOLUME 81.1 fl (80-96); MEAN PLT VOLUME 9.7 fl (7.5-11.1); NEUTROPHILS 87.3 % (42.8-82.8); PLATELET COUNT 164 K/MM3 (134-434); RDW 17.7 % (11.6-15.6)
--- NOTE | 2016-08-30 09:30 | PN ---
Progress Note (short form) - Note Progress Note: Patient seen and examined Chart reviewed. Currently lying supine in bed, alert and appropriate. Cough improved with less expiratory wheezing. Denies new chest discomfort palpitations or pre-syncope. Underwent EGD and Colonoscopy with removal of several polyps including one sigmoid polyp likely to have been related to the rectal bleeding described earlier. No new rectal bleeding. Labs , it sales consultant notes, procedure notes and medication list reviewed. Appetite decreased. Remains off of anticoagulation Selected Entries 08/29/16 08/30/16 21:00 06:00 Temperature 97.8 F Pulse Rate 118 H Respiratory 18 Rate Blood Pressure 144/74 O2 Sat by Pulse 91 L Oximetry (%) Oxygen Delivery Room Air Method Laboratory Tests 08/29/16 08/30/16 06:20 07:15 WBC 10.0 Hgb 10.1 L D Hct 31.1 L Plt Count 164 Sodium 145 Potassium 4.0 Chloride 111 H Carbon Dioxide 27 BUN 17 D Creatinine 1.1 H Random Glucose 74 Calcium 7.7 L Phosphorus 3.6 Magnesium 1.8 Chest Minimal bilateral end-expiratory wheezing improved overall No rhonchi No rales No accessory muscle use Cor Irregular this AM Rate increased Abd Soft non-tender Left pre-auricular facial mass unchanged Possible parotid tumor Ext No edema No evidence of active thrombophlebitis Neuro No focal deficit Assessment and Plan Pneumonitis/Bronchitis Likely related to RSV Continue treatment with corticosteroids Slow taper continues H/O DVT Stable HPL Stable HTN Stable H/O AFib Continue Eliquis after several days as per GI note Rate increase noted Rectal bleeding with resultant anemia See endoscopy notes Anemia 10.0/32.0>>9.6/30.4>>>9.5/29.8>>9.1/27.5>>10.1/31.1 Monitor. Off NOAC as noted Positive urine culture with 70K CFU of Staph Epidermidis Likely contaminant Follow clinically Hiatal Hernia Noted on chest CT Left renal cyst/mass Noted on CT Compression fracture T11 Continue current Rx Continue slow corticosteroid taper. Increase activity as tolerated Discharge planning Monitor H/H Resume NOAC later this week
[2016-08-30] MEDS: PANTOPRAZOLE 40 MG TABLET (FP) PO SCH (09:33)
[2016-08-30] MEDS: LOSARTAN POTASSIUM 50 MG TABLET (FP) PO SCH (09:33)
[2016-08-30] MEDS: FOLIC ACID 1 MG TABLET (FP) PO SCH (09:33)
[2016-08-30] MEDS: predniSONE 20 MG TABLET (UD) PO SCH (09:33)
[2016-08-30] MEDS: METOPROLOL SUCCINATE 25 MG TAB.SR.24H (FP) PO SCH ×2 (09:33→22:33)
[2016-08-30] MEDS: NIFEdipine E.R 60 MG TABLET (UD) PO SCH (09:33)
[2016-08-30] MEDS: DOCUSATE SODIUM 100 MG CAPSULE (FP) PO SCH ×2 (09:33→22:31)
[2016-08-30] MEDS: POLYETHYLENE GLYCOL 3350 119 GM BTL PO SCH ×2 (09:34→22:32)
[2016-08-30] MEDS: ATORVASTATIN CA 40 MG TABLET (FP) PO SCH (22:32)
[2016-08-31] MEDS ORDERED: PT OWN MED DRAWER 7, Y5N ONE ×3 (04:10→10:09)
[2016-08-31 09:08] LABS: BASOPHIL 0.5 % (0-2.0); MCH 25.9 pg (25.7-33.7); MCHC 32.1 g/dl (32.0-36.0); MEAN CELL VOLUME 80.7 fl (80-96); MEAN PLT VOLUME 9.1 fl (7.5-11.1); NEUTROPHILS 82.5 % (42.8-82.8); PLATELET COUNT 148 K/MM3 (134-434); WHITE BLOOD COUNT 11.9 K/mm3 (4.0-10.0)
[2016-08-31] MEDS: DOCUSATE SODIUM 100 MG CAPSULE (FP) PO SCH ×2 (10:15→21:28)
[2016-08-31] MEDS: METOPROLOL SUCCINATE 25 MG TAB.SR.24H (FP) PO SCH ×2 (10:16→21:28)
[2016-08-31] MEDS: LOSARTAN POTASSIUM 50 MG TABLET (FP) PO SCH (10:16)
[2016-08-31] MEDS: predniSONE 20 MG TABLET (UD) PO SCH (10:16)
[2016-08-31] MEDS: PANTOPRAZOLE 40 MG TABLET (FP) PO SCH (10:16)
[2016-08-31] MEDS: FOLIC ACID 1 MG TABLET (FP) PO SCH (10:16)
[2016-08-31] MEDS: POLYETHYLENE GLYCOL 3350 119 GM BTL PO SCH ×2 (10:19→21:29)
[2016-08-31] MEDS: NIFEdipine E.R 60 MG TABLET (UD) PO SCH (11:24)
--- NOTE | 2016-08-31 17:13 | PN ---
Progress Note, Physician Chief Complaint: Ms Stallings says she is weak and short of breath on exertion. No cp or n/v. - Current Medication List Current Medications: Active Medications Acetaminophen (Tylenol -) 650 mg PO Q4H PRN PRN Reason: FEVER OR PAIN Albuterol/Ipratropium (Duoneb -) 1 amp NEB Q6H PRN PRN Reason: SHORTNESS OF BREATH Last Admin: 08/25/16 22:35 Dose: 1 amp Atorvastatin Calcium (Lipitor -) 40 mg PO HS [facility] Last Admin: 08/30/16 22:32 Dose: 40 mg Docusate Sodium (Colace -) 100 mg PO BID [facility] Last Admin: 08/31/16 10:15 Dose: 100 mg Folic Acid (Folic Acid -) 1 mg PO DAILY [facility] Last Admin: 08/31/16 10:16 Dose: 1 mg Guaifenesin/Codeine Phosphate (Robitussin Ac -) 5 ml PO TID PRN PRN Reason: COUGH Last Admin: 08/25/16 14:01 Dose: 5 ml Losartan Potassium (Cozaar -) 50 mg PO DAILY [facility] Last Admin: 08/31/16 10:16 Dose: 50 mg Metoprolol Succinate (Toprol Xl -) 25 mg PO BID [facility] Last Admin: 08/31/16 10:16 Dose: 25 mg Nifedipine (Procardia Xl -) 60 mg PO DAILY [facility] Last Admin: 08/31/16 11:24 Dose: 60 mg Pantoprazole Sodium (Protonix -) 40 mg PO DAILY [facility] Last Admin: 08/31/16 10:16 Dose: 40 mg Polyethylene Glycol (Miralax (For Daily Use) -) 17 gm PO BID [facility] Last Admin: 08/31/16 10:19 Dose: 17 gm Prednisone (Deltasone -) 20 mg PO DAILY [facility] Last Admin: 08/31/16 10:16 Dose: 20 mg - Objective Vital Signs: Vital Signs Temperature 98.0 F 08/31/16 14:15 Pulse Rate 99 H 08/31/16 14:15 Respiratory Rate 20 08/31/16 09:06 Blood Pressure 122/70 08/31/16 14:15 O2 Sat by Pulse Oximetry (%) 96 08/31/16 09:00 Constitutional: Yes: Well Nourished, No Distress, Calm HENT: Yes: Other (L facial mass) Cardiovascular: Yes: Regular Rate and Rhythm. No: Gallop, Murmur, Rub Respiratory: Yes: Regular, CTA Bilaterally, On Nasal O2, Other (makes wheezing sound in upper airway during exam). No: Rales, Rhonchi, Wheezes Gastrointestinal: Yes: Normal Bowel Sounds, Soft. No: Distention, Tenderness Extremities: Yes: WNL Edema: No Labs: CBC, BMP 08/31/16 08:47 08/29/16 06:20 INR, PTT INR 1.01 (0.82-1.09) 08/28/16 07:00 Problem List - Problems (1) GI bleed Code(s): K92.2 - GASTROINTESTINAL HEMORRHAGE, UNSPECIFIED (2) Anemia Code(s): D64.9 - ANEMIA, UNSPECIFIED (3) Bronchitis Code(s): J40 - BRONCHITIS, NOT SPECIFIED ACUTE OR CHRONIC (4) DVT (deep venous thrombosis) Code(s): I82.409 - ACUTE EMBOLISM AND THOMBOS UNSP DEEP VN UNSP LOWER EXTREMITY (5) HLD (hyperlipidemia) Code(s): E78.5 - HYPERLIPIDEMIA, UNSPECIFIED (6) HTN (hypertension) Code(s): I10 - ESSENTIAL (PRIMARY) HYPERTENSION (7) Atrial fibrillation Code(s): I48.91 - UNSPECIFIED ATRIAL FIBRILLATION Qualifiers: Atrial fibrillation type: paroxysmal Qualified Code(s): I48.0 - Paroxysmal atrial fibrillation Assessment/Plan (1) GIB -s/p colonoscopy and endoscopy -holding eliquis for 5 days, restart on 09/02 (2) Anemia -secondary to GIB -s/p transfusion -stable (3) Bronchitis Assessment/Plan: -resolved -patient makes stridor sounds on exam -decrease prednisone to 10mg daily -on room air Code(s): J98.11 - ATELECTASIS (4) DVT (deep venous thrombosis) Assessment/Plan: -hold eliquis currently -restart on 09/02 Code(s): I82.409 - ACUTE EMBOLISM AND THOMBOS UNSP DEEP VN UNSP LOWER EXTREMITY (5) HLD (hyperlipidemia) Assessment/Plan: -continue lipitor Code(s): E78.5 - HYPERLIPIDEMIA, UNSPECIFIED (6) HTN (hypertension) Assessment/Plan: -continue toprol xl and nifedipine -continue losartan Code(s): I10 - ESSENTIAL (PRIMARY) HYPERTENSION (7) Atrial fibrillation Assessment/Plan: -currently sounds in sinus rhythm -holding eliquis as above Code(s): I48.91 - UNSPECIFIED ATRIAL FIBRILLATION Qualifiers: Atrial fibrillation type: paroxysmal Qualified Code(s): I48.0 - Paroxysmal atrial fibrillation (8) Fall -mechanical -has not recurred Dispo -patient seems reluctant to be discharged from the hospital -made aware of plan for discharge tomorrow to SNF, began to say she is short of breath and weak -if no further medical complications, patient is safe for discharge tomorrow
--- NOTE | 2016-08-31 18:32 | PN ---
GI Progress Note Subjective: No rectal bleeding. Source suspected to be pedunculated sigmoid polyp No abdominal pain - Objective Vital Signs: Vital Signs Temperature 98.0 F 08/31/16 14:15 Pulse Rate 99 H 08/31/16 14:15 Respiratory Rate 20 08/31/16 09:06 Blood Pressure 122/70 08/31/16 14:15 O2 Sat by Pulse Oximetry (%) 96 08/31/16 09:00 Constitutional: Calm Eyes: No: Sclera Icterus Cardiovascular: Yes: Regular Rate and Rhythm Gastrointestinal Inspection: No: Distention ...Auscultate: Yes: Normoactive Bowel Sounds ...Palpate: No: Tenderness Neurological: Yes: Alert, Oriented Labs: CBC, BMP 08/31/16 08:47 08/29/16 06:20 INR, PTT INR 1.01 (0.82-1.09) 08/28/16 07:00 Problem List - Problems (1) Rectal bleed Assessment/Plan: Continue to monitor H/H A/C held. Resume on wednesday Code(s): K62.5 - HEMORRHAGE OF ANUS AND RECTUM
[2016-08-31] MEDS: ATORVASTATIN CA 40 MG TABLET (FP) PO SCH (21:28)
[2016-09-01 07:59] LABS: BASOPHIL 0.6 % (0-2.0); EOSINOPHIL 1.9 % (0-4.5); MCH 26.3 pg (25.7-33.7); MCHC 32.5 g/dl (32.0-36.0); MEAN PLT VOLUME 10.1 fl (7.5-11.1); NEUTROPHILS 80.9 % (42.8-82.8); PLATELET COUNT 99 K/MM3 (134-434); RDW 18.5 % (11.6-15.6); WHITE BLOOD COUNT 10.2 K/mm3 (4.0-10.0)
[2016-09-01 08:14] LABS: CALCIUM 7.5 mg/dL (8.5-10.1); MAGNESIUM 1.6 mg/dL (1.8-2.4); PHOSPHOROUS 2.5 mg/dL (2.5-4.9)
[2016-09-01] MEDS ORDERED: PT OWN MED DRAWER 7, Y5N ONE (09:59)
[2016-09-01] MEDS: FOLIC ACID 1 MG TABLET (FP) PO SCH (10:02)
[2016-09-01] MEDS: LOSARTAN POTASSIUM 50 MG TABLET (FP) PO SCH (10:02)
[2016-09-01] MEDS: DOCUSATE SODIUM 100 MG CAPSULE (FP) PO SCH ×2 (10:02→22:41)
[2016-09-01] MEDS: METOPROLOL SUCCINATE 25 MG TAB.SR.24H (FP) PO SCH ×2 (10:02→22:41)
[2016-09-01] MEDS: predniSONE 10 MG TABLET (UD) PO SCH (10:02)
[2016-09-01] MEDS: PANTOPRAZOLE 40 MG TABLET (FP) PO SCH (10:02)
[2016-09-01] MEDS: POLYETHYLENE GLYCOL 3350 119 GM BTL PO SCH ×2 (10:03→22:41)
[2016-09-01] MEDS: NIFEdipine E.R 60 MG TABLET (UD) PO SCH (10:03)
--- NOTE | 2016-09-01 11:55 | PN ---
Progress Note, Physician Chief Complaint: Ms Stallings says she feels "yucky" today. Still with weakness and shortness of breath on exertion. No cp or n/v. - Current Medication List Current Medications: Active Medications Acetaminophen (Tylenol -) 650 mg PO Q4H PRN PRN Reason: FEVER OR PAIN Albuterol/Ipratropium (Duoneb -) 1 amp NEB Q6H PRN PRN Reason: SHORTNESS OF BREATH Last Admin: 08/25/16 22:35 Dose: 1 amp Atorvastatin Calcium (Lipitor -) 40 mg PO HS [facility] Last Admin: 08/31/16 21:28 Dose: 40 mg Docusate Sodium (Colace -) 100 mg PO BID [facility] Last Admin: 09/01/16 10:02 Dose: Not Given Folic Acid (Folic Acid -) 1 mg PO DAILY [facility] Last Admin: 09/01/16 10:02 Dose: 1 mg Losartan Potassium (Cozaar -) 50 mg PO DAILY [facility] Last Admin: 09/01/16 10:02 Dose: 50 mg Magnesium Oxide (Mag-Ox -) 800 mg PO ONCE ONE Stop: 09/01/16 12:01 Metoprolol Succinate (Toprol Xl -) 50 mg PO BID [facility] Pantoprazole Sodium (Protonix -) 40 mg PO DAILY [facility] Last Admin: 09/01/16 10:02 Dose: 40 mg Polyethylene Glycol (Miralax (For Daily Use) -) 17 gm PO BID [facility] Last Admin: 09/01/16 10:03 Dose: Not Given Prednisone (Deltasone -) 10 mg PO DAILY [facility] Last Admin: 09/01/16 10:02 Dose: 10 mg - Objective Vital Signs: Vital Signs Temperature 98.2 F 09/01/16 09:52 Pulse Rate 110 H 09/01/16 09:52 Respiratory Rate 18 09/01/16 09:52 Blood Pressure 143/68 09/01/16 09:52 O2 Sat by Pulse Oximetry (%) 96 08/31/16 21:00 Constitutional: Yes: Well Nourished, No Distress, Calm HENT: Yes: Other (L facial mass) Cardiovascular: Yes: Tachycardia, Pulse Irregular. No: Gallop, Murmur, Rub Respiratory: Yes: Regular, CTA Bilaterally. No: Rales, Rhonchi, Wheezes Gastrointestinal: Yes: Normal Bowel Sounds, Soft. No: Distention, Tenderness Extremities: Yes: WNL Edema: No Labs: CBC, BMP 09/01/16 07:00 09/01/16 07:00 INR, PTT INR 1.01 (0.82-1.09) 08/28/16 07:00 Problem List - Problems (1) GI bleed Code(s): K92.2 - GASTROINTESTINAL HEMORRHAGE, UNSPECIFIED (2) Anemia Code(s): D64.9 - ANEMIA, UNSPECIFIED (3) Bronchitis Code(s): J40 - BRONCHITIS, NOT SPECIFIED ACUTE OR CHRONIC (4) DVT (deep venous thrombosis) Code(s): I82.409 - ACUTE EMBOLISM AND THOMBOS UNSP DEEP VN UNSP LOWER EXTREMITY (5) HLD (hyperlipidemia) Code(s): E78.5 - HYPERLIPIDEMIA, UNSPECIFIED (6) HTN (hypertension) Code(s): I10 - ESSENTIAL (PRIMARY) HYPERTENSION (7) Atrial fibrillation Code(s): I48.91 - UNSPECIFIED ATRIAL FIBRILLATION Qualifiers: Atrial fibrillation type: paroxysmal Qualified Code(s): I48.0 - Paroxysmal atrial fibrillation (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 - MALIGNANT NEOPLASM OF COLON, UNSPECIFIED Assessment/Plan (1) GIB -s/p colonoscopy and endoscopy -holding eliquis for 5 days, restart on 09/02 (2) Anemia -secondary to GIB -s/p transfusion -stable (3) Bronchitis Assessment/Plan: -resolved -continue prednisone 10mg daily, day 2/3 -on room air Code(s): J98.11 - ATELECTASIS (4) DVT (deep venous thrombosis) Assessment/Plan: -hold eliquis currently -restart on 09/02 Code(s): I82.409 - ACUTE EMBOLISM AND THOMBOS UNSP DEEP VN UNSP LOWER EXTREMITY (5) HLD (hyperlipidemia) Assessment/Plan: -continue lipitor Code(s): E78.5 - HYPERLIPIDEMIA, UNSPECIFIED (6) HTN (hypertension) Assessment/Plan: -increase toprol xl, stop nifedipine -continue losartan Code(s): I10 - ESSENTIAL (PRIMARY) HYPERTENSION (7) Atrial fibrillation Assessment/Plan: -back in atrial fibrillation -also with RVR -stop nifedipine -increase toprol xl -transfer to telemetry -cardiology consult Code(s): I48.91 - UNSPECIFIED ATRIAL FIBRILLATION Qualifiers: Atrial fibrillation type: paroxysmal Qualified Code(s): I48.0 - Paroxysmal atrial fibrillation (8) Colon adenocarcinoma -consult oncology
[2016-09-01] MEDS ORDERED: MAGNESIUM OXIDE 400 MG TABLET (FP) PO ONE (12:00)
--- NOTE | 2016-09-01 12:40 | EKG ---
Test Reason : Blood Pressure : / mmHG Vent. Rate : 112 BPM Atrial Rate : 214 BPM P-R Int : 000 ms QRS Dur : 076 ms QT Int : 308 ms P-R-T Axes : 000 011 -03 degrees QTc Int : 420 ms ATRIAL FIBRILLATION WITH RAPID VENTRICULAR RESPONSE WITH PREMATURE VENTRICULAR OR ABERRANTLY CONDUCTED COMPLEXES ABNORMAL ECG WHEN COMPARED WITH ECG OF 06-AUG-2016 20:50, ATRIAL FIBRILLATION HAS REPLACED SINUS RHYTHM Confirmed by GARRISON CHAND MD ([id number]) on 09/01/2016 12:40:26 PM Referred By: Confirmed By:GARRISON CHAND MD
--- NOTE | 2016-09-01 13:51 | PATH ---
Surgical Pathology Report Patient Name: [facility] Rec. #: [id number] /Age/Gender: 1925 (Age: 89) / F Account: [id number] Location: 4 SO PEDS/ADOL Taken: 08/28/2016 Received: 08/31/2016 Reported: 09/01/2016 Physicians: Marisela Naranjo M.D. Specimen(s) Received A: BX RECTAL POLYP B: SIGMOID COLON POLYP C: RIGHT COLON POLYPS Clinical History GI bleeding Atrophic gastritis, colon polyps, diverticulosis Final Diagnosis A. RECTUM, POLYP, BIOPSY: FRAGMENTS OF HYPERPLASTIC POLYP. B. COLON, SIGMOID, POLYP, POLYPECTOMY: MODERATELY DIFFERENTIATED (LOW GRADE) ADENOCARCINOMA, INVASIVE INTO THE POLYP STALK (pT1). POLYPECTOMY RESECTION MARGIN: CAUTERIZED MARGIN OF RESECTION IS NEGATIVE FOR CARCINOMA; CARCINOMA IS 1.5 MM FROM THE CAUTERIZED MARGIN. LARGE VESSEL (VENOUS) INVASION: HIGHLY SUSPICIOUS. LYMPHOVASCULAR (SMALL VESSEL) INVASION: NOT DEFINITIVELY IDENTIFIED. PERINEURAL INVASION: NOT DEFINITIVELY IDENTIFIED. PATHOLOGIC STAGING: pT1 (ALSO REFER TO CHECKLIST BELOW) Comment: Elastin stain (EVG) to detect the venous invasion is pending; results will be reported in an addendum. DNA Mismatch Repair (MMR) protein expression analysis by IHC is pending; results will be reported in an addendum. The case was discussed with Dr. Naranjo on 09/01/16. C. COLON, RIGHT, POLYPS, POLYPECTOMY: MULTIPLE FRAGMENTS OF TUBULAR ADENOMA. Comments Colorectal carcinoma : Surgical Pathology Cancer Case Summary (Checklist) Based on AJCC/UICC TNM, 7th edition Specimen: sigmoid polyp Procedure: polypectomy Tumor Site: sigmoid colon Tumor Size Greatest dimension: ~1.5 cm Histologic Type: adenocarcinoma Histologic Grade: _x_ Low-grade (moderately differentiated) Microscopic Tumor Extension _x_ Tumor invades submucosa (polyp stalk) Margins Polyp stalk margin _x_ Cauterized margin of polypectomy is negative for carcinoma Distance of invasive carcinoma from the polypectomy margin: 1.5 mm Large vessel invasion: _x_ Highly suspicious Small vessel invasion _x_ Not definitively identified Perineural Invasion _x_ Not definitively identified Pathologic Staging (pTNM) Primary Tumor: pT1 Regional Lymph Nodes: pNX Distant metastases 9pM): Not applicable Electronically Signed Carlos Eduardo Augustin M.D. Addendum Reported: 09/02/2016 Addendum Diagnosis Part B: Elastic stain performed at [facility] laboratory on block B8 and interpreted at [facility] highlights a focal area with focal residual elastic fibers highly suspicious for venous invasion. Carlos Eduardo Augustin M.D. Addendum Reported: 09/02/2016 Addendum Diagnosis Part B: DNA Mismatch Repair (MMR) protein expression analysis by IHC performed at the [facility], [place], [place] ([id number]) on block B1 and interpreted [facility] shows the following: Results: hMLH-1 DNA Mismatch Repair Protein: Intact nuclear expression hMSH-2 DNA Mismatch Repair Protein: Intact nuclear expression hMSH-6 DNA Mismatch Repair Protein: Intact nuclear expression PMS2 DNA Mismatch Repair Protein: Intact nuclear expression Interpretation: No defect in DNA Mismatch Repair (MMR) protein expression is identified by IHC. This result is usually seen in MSI-H stable tumors and is not associated with HNPCC (Yeager syndrome). Carlos Eduardo Augustin M.D. Gross Description A. Received in formalin, labeled "biopsy rectal polyp" are 3 edouard, irregular portions of soft tissue averaging 0.2 cm in greatest dimension. The specimens are submitted in toto in one cassette. B. Received in formalin, labeled "sigmoid colon polyp" is a 2.0 x 1.2 x 0.9 cm edouard, polypoid portion of soft tissue. The base is inked green and the specimen is trisected. The specimen is entirely submitted in 2 cassettes. C. Received in formalin, labeled "right colon polyps" are 5 edouard, irregular portions of soft tissue ranging from 0.2-0.3 cm in greatest dimension. The specimens are submitted in toto in one cassette. 08/31/2016 saudi08/31/2016
--- NOTE | 2016-09-01 16:34 | CON.CARD ---
Consult Consult Specialty:: cardio Referred by:: haile Reason for Consultation:: rapid AF - History of Present Illness Chief Complaint: sob History of Present Illness: 89 yo F initially admitted from 07/27/16-08/06/16 for evaluation of [place] and tremors , no clear etiology found. Diagnosed with a Right LE DVT 08/07/16 and started on eliquis. 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 Sent to SNF and came back within 24 hrs with c/o SOB--she is being treated for bronchitis, including with corticosteroids. She sustained a fall while here. She had rectal bleeding here, so had EGD and FOC this week--bleeding source felt to have been emanating from a large sigmoid polyp which was removed. Five polyps in total were removed, with recs to hold AC x 5 days. 09/01 she had irregular and rapid pulse on exam--ekg done showing AF with HR 112. transferred to [facility] and toprol dose raised from 25 bid to 50 bid. while pt here last time, she remained weak > sob with any standing/walking, and these sx's have persisted here. there was no CV etiology found (nor suspected) for these sx's on her recent prior inpatient workup. she says that she's been sob and wheezing since came in, can't say that it got much better or acutely worse, though she definitely felt more sob earlier today than she does now. sob here has been sometimes at rest, and any time does any activity. was given a neb treatment--? if that helped her. when first arrived on tele floor, HRs were 130s-140. given diltiazem IVP x 1 and improved to around 100. she denies cp/pressure or any palpitations. 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 [employer] [address] History of Recent Travel: No Home Medications - Allergies Allergies/Adverse Reactions: Allergies Allergy/AdvReac Type Severity Reaction Status Date / Time No Known Allergies Allergy Verified 08/06/16 21:09 - Home Medications Home Medications: Ambulatory Orders Atorvastatin Ca [Lipitor] 40 mg PO DAILY 07/27/16 Enalapril Maleate [Vasotec] 20 mg PO BID 07/27/16 Nifedipine ER [Procardia XL -] 60 mg PO DAILY 07/27/16 Acetaminophen [Tylenol .Regular Strength -] 650 mg PO Q4H PRN #0 tablet Apixaban [Eliquis] 5 mg PO BID #60 tablet 08/06/16 Folic Acid - 1 mg PO DAILY tablet 08/06/16 Metoprolol Succinate [Toprol XL -] 25 mg PO BID tab.sr.24h 08/06/16 Family Disease History - Family Disease History Family Disease History: Other: Father ( 70's, unclear cause), Mother ( 96 "old age"), Brother (2 bros, 1 killed in WWII, 1 from ulcer complication ), Son (No children), Daughter (No children) Other Family History: No family history of colorectal cancer or other GI malignancy Review of Systems - Review of Systems Constitutional: reports: Weakness. denies: Chills, Fever Eyes: denies: Eye Pain HENT: denies: Nasal Congestion Neck: denies: Stiffness Cardiovascular: denies: Palpitations Respiratory: denies: Orthopnea, PND Gastrointestinal: denies: Diarrhea, Rectal Bleeding Genitourinary: denies: Burning, Hematuria Musculoskeletal: denies: Muscle Pain Integumentary: denies: Rash Neurological: denies: Numbness, Seizure, Syncope Endocrine: denies: Excessive Sweating Hematology/Lymphatic: denies: Excessive Bleeding Vital Signs: Vital Signs Temperature 98.3 F 09/01/16 14:24 Pulse Rate 121 H 09/01/16 14:24 Respiratory Rate 18 09/01/16 09:52 Blood Pressure 128/72 09/01/16 14:24 O2 Sat by Pulse Oximetry (%) 96 08/31/16 21:00 Constitutional: Yes: Well Nourished, No Distress Eyes: No: Sclera Icterus HENT: No: Nasal Congestion Neck: No: Decreased ROM Respiratory: Yes: CTA Bilaterally. No: Accessory Muscle Use, Rales, Wheezes Gastrointestinal: Yes: Normal Bowel Sounds. No: Distention, Hepatomegaly, Palpable Mass, Tenderness Cardiovascular: Yes: Pulse Irregular JVD: No Carotid Bruit: No PMI: Non-Displaced Heart Sounds: Yes: S1, S2. No: Gallop Murmur: No: Systolic Murmur, Diastolic Murmur Musculoskeletal: Yes: Other (No kyphosis) Extremities: No: Cold, Cyanosis Edema: No Peripheral Pulses: 2+ Left Carotid, 2+ Right Carotid, 2+ Left Doralis Pedis, 2+ Right Dorsalis Pedis Integumentary: No: Jaundice Neurological: Yes: Alert, Oriented (x3) Psychiatric: No: Agitated - Other Data Labs, Other Data: CBC, BMP 09/01/16 07:00 09/01/16 07:00 INR, PTT INR 1.01 (0.82-1.09) 08/28/16 07:00 Laboratory Tests 08/07/16 08/27/16 09/01/16 00:06 15:05 07:00 WBC 10.2 H Hgb 7.4 L 9.5 L Plt Count 99 L D Sodium Potassium Carbon Dioxide BUN Creatinine Troponin I 0.04 09/01/16 07:00 WBC Hgb Plt Count Sodium 145 Potassium 3.8 Carbon Dioxide 30 BUN 16 Creatinine 1.0 Troponin I ekg 09/01: AFib with HR 112; no path Q's; no isch ST-T abn; PVCs present tele: AF to 130s--currently 100s Assessment/Plan Echo 07/27/16: nl LV/EF; nl RV; mild LAE/PIPE; mild TR; peak RVSP 58; trivial peric eff not hemody significant CTA chest /: no PE; LLL consolidation/ATX; large hiatal hernia with intrathoracic stomach sob, PND previously, now with bronchitis vs PNA: -? if these sx's at home correlated with episodes of rapid atrial arrhythmia/AF -large hiatal hernia with intrathoracic stomach is also a possible cause of orthopnea sx's -no chf findings on CXR or CT chest when admitted with this few weeks ago. -unlikely that moderately elevated pulm pressure would cause this, when not acutely elevated (CTA neg for PE x 2 recently, and RV not dilated at that time) -sx's could be explained by BONILLA, which could also explain the pulm HTN--plan is for eventual sleep study as outpt -no isch ecg findings and serial trop neg x 3--stress testing being deferred as she has had no sx's suspicious of angina -cont tx of acute respiratory infection per dr be, consider outpt PFTs parox AF, MAT: -one episode of suspected MAT as well as runs of paroxysmal afib on tele during recent prior admit 07/21 -now with AF mildly rapid 09/01--HR responded well to IVP diltiazem. -will cont toprol 25 bid (has had wheezing here, though this is likely transient from pneumonitis) -start diltiazem 60 TID (watch for low bp's) -given CHADS VASC is 4, with approx 4%/year CVA risk (which is > expected bleeding risk from AC), would rec indefinite AC for cva prophylaxis -eliquis on hold for bleeding sigmoid polyp, now s/p polypectomy--cleared to resume AC after 5 days per GI -cont tele monitoring LE DVT: -AC as disc'd, heme following HTN: -bp controlled here -cont same meds HPL: -cont outpt med regimen dizzy/poor balance: -orthostatics normal here parotic mass -s/p recent biopsy--per ENT, onc
[2016-09-01] MEDS ORDERED: dilTIAZem HCL 50 MG/10 ML - 10 ML VIAL IVPUSH ONE (16:40)
--- NOTE | 2016-09-01 17:44 | CONSULT ---
Consult Consult Specialty:: Oncology-Hematology Referred by:: Dr. Delacruz Reason for Consultation:: T1 colon ca arising in a polyp --s/p polypectomy - History Source History Provided By: Patient, Medical Record Limitations to Obtaining History: No Limitations - Past Medical History Cardio/Vascular: Yes: CHF, HTN, Hyperlipdemia Pulmonary: Yes: COPD ...: 0 ...Para: 0 Heme/Onc: Yes: Cancer, Hypercoaguable State ENT: Yes: Other (left parotid tumor) - Past Surgical History Past Surgical History: Yes: None - Alcohol/Substance Use Hx Alcohol Use: No (social) History of Substance Use: reports: None - Smoking History Smoking history: Former smoker (quit over 40 years ago) Have you smoked in the past 12 months: No - Social History Usual Living Arrangement: Alone ADL: Independent 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 [employer] [address] History of Recent Travel: No Home Medications - Allergies Allergies/Adverse Reactions: Allergies Allergy/AdvReac Type Severity Reaction Status Date / Time No Known Allergies Allergy Verified 08/06/16 21:09 - Home Medications Home Medications: Ambulatory Orders Atorvastatin Ca [Lipitor] 40 mg PO DAILY 07/27/16 Enalapril Maleate [Vasotec] 20 mg PO BID 07/27/16 Nifedipine ER [Procardia XL -] 60 mg PO DAILY 07/27/16 Acetaminophen [Tylenol .Regular Strength -] 650 mg PO Q4H PRN #0 tablet Apixaban [Eliquis] 5 mg PO BID #60 tablet 08/06/16 Folic Acid - 1 mg PO DAILY tablet 08/06/16 Metoprolol Succinate [Toprol XL -] 25 mg PO BID tab.sr.24h 08/06/16 Family Disease History - Family Disease History Family Disease History: Other: Father ( 70's, unclear cause), Mother ( 96 "old age"), Brother (2 bros, 1 killed in WWII, 1 from ulcer complication ), Son (No children), Daughter (No children) Other Family History: No family history of colorectal cancer or other GI malignancy Review of Systems - Review of Systems Constitutional: reports: Weakness. denies: Fever, Loss of Appetite, Night Sweats, Unintentional Wgt. Loss Eyes: denies: Blurred Vision, Double Vision HENT: denies: Epistaxis, Throat Pain Neck: reports: Other (enlarging left parotid tumor). denies: Tenderness Cardiovascular: reports: Shortness of Breath Respiratory: reports: SOB, SOB on Exertion Gastrointestinal: reports: Rectal Bleeding Genitourinary: denies: Dysuria, Flank Pain, Frequency, Hematuria Breasts: reports: Other (never had mammography) Integumentary: reports: No Symptoms Neurological: reports: No Symptoms Endocrine: reports: No Symptoms Hematology/Lymphatic: reports: Swollen Glands, Other (left parotid swelling) Psychiatric: reports: No Symptoms Physical Exam Vital Signs: Vital Signs Temperature 98.3 F 09/01/16 14:24 Pulse Rate 121 H 09/01/16 14:24 Respiratory Rate 18 09/01/16 09:52 Blood Pressure 128/72 09/01/16 14:24 O2 Sat by Pulse Oximetry (%) 96 08/31/16 21:00 Constitutional: Yes: No Distress Eyes: Yes: PERRL. No: Diplopia, Ptosis, Sclera Icterus HENT: Yes: Other (edentulos). No: Epistaxis, Hoarseness, Thrush, Tonsillar Exudate Cardiovascular: Yes: Pulse Irregular Respiratory: Yes: Rales Gastrointestinal: Yes: Normal Bowel Sounds, Soft. No: Ascites, Hepatomegaly, Palpable Mass, Splenomegaly Breast(s): Yes: WNL, Left, Right. No: Nipple Inversion Musculoskeletal: No: Muscle Pain Extremities: No: Calf Tenderness, Cold, Cyanosis, Erythema Neurological: Yes: Alert, Oriented ...Motor Strength: WNL Psychiatric: Yes: WNL Labs: CBC, BMP 09/01/16 07:00 09/01/16 07:00 Problem List - Problems (1) Colon adenocarcinoma Assessment/Plan: T1 colon ca arising in polyp in sigmoid. S/P polypectomy with stalk cleared of tumor. Suspicious for large vessel invasion. Negative LVI and perineural invasion . Tumor --1.5 mm from cauterized margin. In this 89 year old patient with recent diagnosis of DVT , new onset of atrial fib, it might not be unreasonable to monitor the patient with serial colonoscopy with biopsy of tatooed area for tumor recurrence. A/C with eliquis would be discontinued only for a short period of time only for procedure. If recurrence, then a more definitive approach such as resection might have to be considered. Although unlikely for metastatic disease CT scanning of chest, abdomen, and pelvis is part of screening. Would consider when medically feasible. CEA can be ordered. Discussed with Dr. Barbosa. 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 Patient now seems reluctant to pursue work up. Code(s): D49.0 - NEOPLASM OF UNSPECIFIED BEHAVIOR OF DIGESTIVE SYSTEM (3) DVT (deep venous thrombosis) Assessment/Plan: ALthough initially felt to be unprovoked DVT, now it seems that DVT is related to hypercoagulable state of malignancy. Developed atrial fib , and currently will need to be maintained on a/c. Code(s): I82.409 - ACUTE EMBOLISM AND THOMBOS UNSP DEEP VN UNSP LOWER EXTREMITY
[2016-09-01] MEDS: dilTIAZem HCL 60 MG TABLET (FP) PO SCH ×2 (17:50→22:41)
[2016-09-01] MEDS ORDERED: METOPROLOL SUCCINATE 50 MG TAB.SR.24H (FP) PO SCH (22:00)
[2016-09-01] MEDS: ATORVASTATIN CA 40 MG TABLET (FP) PO SCH (22:41)
[2016-09-02] MEDS: dilTIAZem HCL 60 MG TABLET (FP) PO SCH ×3 (06:15→22:05)
[2016-09-02 07:52] LABS: BASOPHIL 0.3 % (0-2.0); EOSINOPHIL 2.1 % (0-4.5); MCH 25.9 pg (25.7-33.7); MCHC 32.1 g/dl (32.0-36.0); MEAN CELL VOLUME 80.5 fl (80-96); MEAN PLT VOLUME 9.2 fl (7.5-11.1); NEUTROPHILS 81.1 % (42.8-82.8); PLATELET COUNT 137 K/MM3 (134-434); RDW 18.8 % (11.6-15.6); WHITE BLOOD COUNT 9.5 K/mm3 (4.0-10.0)
[2016-09-02 08:30] LABS: CALCIUM 7.4 mg/dL (8.5-10.1); PHOSPHOROUS 2.7 mg/dL (2.5-4.9)
--- NOTE | 2016-09-02 10:06 | PN ---
Progress Note (short form) - Note Progress Note: s: no cp sob palps dizzy o: Vital Signs Period Temp Pulse Resp BP Sys/Galvez Pulse Ox Last 24 Hr 97.7 F-98.3 F 85-121 18-18 97-128/58-72 95 Constitutional: Yes: Well Nourished, No Distress Eyes: No: Sclera Icterus Respiratory: Yes: CTA Bilaterally. No: Accessory Muscle Use, Rales, Wheezes Gastrointestinal: Yes: Normal Bowel Sounds. No: Distention, Hepatomegaly, Palpable Mass, Tenderness Cardiovascular: Yes: Pulse Irregular JVD: No Heart Sounds: Yes: S1, S2. No: Gallop Murmur: No: Systolic Murmur, Diastolic Murmur Extremities: No: Cold, Cyanosis Edema: no le edema Integumentary: No: Jaundice Neurological: Yes: Alert, Oriented (x3) Psychiatric: No: Agitated Current Medications Generic Name Dose Route Start Last Admin Trade Name Freq PRN Reason Stop Dose Admin Acetaminophen 650 mg 08/07/16 05:14 Tylenol - PO Q4H PRN FEVER OR PAIN Albuterol/Ipratropium 1 amp 08/25/16 15:04 08/25/16 22:35 Duoneb - NEB 1 amp Q6H PRN Administration SHORTNESS OF BREATH Atorvastatin Calcium 40 mg 08/07/16 22:00 09/01/16 22:41 Lipitor - PO 40 mg HS MARIELLE Administration Diltiazem HCl 60 mg 09/01/16 17:30 09/02/16 06:15 Cardizem - PO 60 mg TID MARIELLE Administration Docusate Sodium 100 mg 08/11/16 13:15 09/01/16 22:41 Colace - PO 100 mg BID MARIELLE Administration Folic Acid 1 mg 08/07/16 10:00 09/01/16 10:02 Folic Acid - PO 1 mg DAILY MARIELLE Administration Losartan Potassium 50 mg 08/26/16 13:14 09/01/16 10:02 Cozaar - PO 50 mg DAILY MARIELLE Administration Metoprolol Succinate 25 mg 09/01/16 22:00 09/01/16 22:41 Toprol Xl - PO 25 mg BID MARIELLE Administration Pantoprazole Sodium 40 mg 08/25/16 13:30 09/01/16 10:02 Protonix - PO 40 mg DAILY MARIELLE Administration Polyethylene Glycol 17 gm 08/11/16 13:15 09/01/16 22:41 Miralax (For Daily Use) - PO Not Given BID MARIELLE Prednisone 10 mg 08/31/16 17:11 09/01/16 10:02 Deltasone - PO 10 mg DAILY MARIELLE Administration CBC, BMP 09/02/16 06:00 09/02/16 06:00 ekg 09/01: AFib with HR 112; no path Q's; no isch ST-T abn; PVCs present tele: AFib, rate controlled Echo 07/27/16: nl LV/EF; nl RV; mild LAE/PIPE; mild TR; peak RVSP 58; trivial peric eff not hemody significant CTA chest 08/07: no PE; LLL consolidation/ATX; large hiatal hernia with intrathoracic stomach Assessment/Plan sob, PND previously, now with bronchitis vs PNA: -large hiatal hernia with intrathoracic stomach is also a possible cause of orthopnea sx's -no chf findings on CXR or CT chest when admitted with this few weeks ago. -unlikely that moderately elevated pulm pressure would cause this sob, when not acutely elevated (CTA neg for PE x 2 recently, and RV not dilated at that time) -sx's could be explained by BONILLA, which could also explain the pulm HTN--plan is for eventual sleep study as outpt -no isch ecg findings and serial trop neg x 3--stress testing being deferred as she has had no sx's suspicious of angina -cont tx of acute respiratory infection per dr be, consider outpt PFTs parox AF, MAT: -one episode of suspected MAT as well as runs of paroxysmal afib on tele during recent prior admit 07/21 -now with AF mildly rapid 09/01--HR responded well to IVP diltiazem. -will cont toprol 25 bid (has had wheezing here, though this is likely transient from pneumonitis) -cont diltiazem 60 TID as well, rate controlled currently -given CHADS VASC is 4, with approx 4%/year CVA risk (which is > expected bleeding risk from AC), would rec indefinite AC for cva prophylaxis -eliquis on hold for bleeding sigmoid polyp, now s/p polypectomy--cleared to resume AC after 5 days per GI -cont tele monitoring LE DVT: -AC as disc'd, heme following HTN: -bp controlled here -cont same meds HPL: -cont outpt med regimen dizzy/poor balance: -orthostatics normal here parotic mass -s/p recent biopsy--per ENT, onc
[2016-09-02] MEDS ORDERED: PT OWN MED DRAWER 7, Y5N ONE (10:14)
[2016-09-02] MEDS: DOCUSATE SODIUM 100 MG CAPSULE (FP) PO SCH ×2 (10:20→21:59)
[2016-09-02] MEDS: PANTOPRAZOLE 40 MG TABLET (FP) PO SCH (10:21)
[2016-09-02] MEDS: predniSONE 10 MG TABLET (UD) PO SCH (10:21)
[2016-09-02] MEDS: FOLIC ACID 1 MG TABLET (FP) PO SCH (10:21)
[2016-09-02] MEDS: LOSARTAN POTASSIUM 50 MG TABLET (FP) PO SCH (10:21)
[2016-09-02] MEDS: METOPROLOL SUCCINATE 25 MG TAB.SR.24H (FP) PO SCH ×2 (10:22→22:05)
[2016-09-02] MEDS: POLYETHYLENE GLYCOL 3350 119 GM BTL PO SCH ×2 (10:24→21:59)
--- NOTE | 2016-09-02 15:16 | PN ---
Progress Note, Physician Chief Complaint: Ms Stallings says she is short of breath today. No cp or n/v. - Current Medication List Current Medications: Active Medications Acetaminophen (Tylenol -) 650 mg PO Q4H PRN PRN Reason: FEVER OR PAIN Albuterol/Ipratropium (Duoneb -) 1 amp NEB Q6H PRN PRN Reason: SHORTNESS OF BREATH Last Admin: 08/25/16 22:35 Dose: 1 amp Apixaban (Eliquis -) 5 mg PO BID [facility] Atorvastatin Calcium (Lipitor -) 40 mg PO HS [facility] Last Admin: 09/01/16 22:41 Dose: 40 mg Diltiazem HCl (Cardizem -) 60 mg PO TID [facility] Last Admin: 09/02/16 14:24 Dose: 60 mg Docusate Sodium (Colace -) 100 mg PO BID [facility] Last Admin: 09/02/16 10:20 Dose: Not Given Folic Acid (Folic Acid -) 1 mg PO DAILY [facility] Last Admin: 09/02/16 10:21 Dose: 1 mg Losartan Potassium (Cozaar -) 50 mg PO DAILY [facility] Last Admin: 09/02/16 10:21 Dose: 50 mg Metoprolol Succinate (Toprol Xl -) 25 mg PO BID [facility] Last Admin: 09/02/16 10:22 Dose: 25 mg Pantoprazole Sodium (Protonix -) 40 mg PO DAILY [facility] Last Admin: 09/02/16 10:21 Dose: 40 mg Polyethylene Glycol (Miralax (For Daily Use) -) 17 gm PO BID [facility] Last Admin: 09/02/16 10:24 Dose: Not Given Prednisone (Deltasone -) 10 mg PO DAILY [facility] Last Admin: 09/02/16 10:21 Dose: 10 mg - Objective Vital Signs: Vital Signs Temperature 98.2 F 09/02/16 13:51 Pulse Rate 95 H 09/02/16 13:51 Respiratory Rate 18 09/02/16 13:51 Blood Pressure 107/64 09/02/16 13:51 O2 Sat by Pulse Oximetry (%) 95 09/01/16 21:00 Constitutional: Yes: Well Nourished, No Distress, Calm HENT: Yes: Other (L facial mass) Cardiovascular: Yes: Pulse Irregular. No: Tachycardia, Gallop, Murmur, Rub Respiratory: Yes: Regular, CTA Bilaterally. No: Rales, Rhonchi, Wheezes Gastrointestinal: Yes: Normal Bowel Sounds, Soft. No: Distention, Tenderness Extremities: Yes: WNL Edema: No Labs: CBC, BMP 09/02/16 06:00 09/02/16 06:00 INR, PTT INR 1.01 (0.82-1.09) 08/28/16 07:00 Problem List - Problems (1) GI bleed Code(s): K92.2 - GASTROINTESTINAL HEMORRHAGE, UNSPECIFIED (2) Anemia Code(s): D64.9 - ANEMIA, UNSPECIFIED (3) Bronchitis Code(s): J40 - BRONCHITIS, NOT SPECIFIED ACUTE OR CHRONIC (4) DVT (deep venous thrombosis) Code(s): I82.409 - ACUTE EMBOLISM AND THOMBOS UNSP DEEP VN UNSP LOWER EXTREMITY (5) HLD (hyperlipidemia) Code(s): E78.5 - HYPERLIPIDEMIA, UNSPECIFIED (6) HTN (hypertension) Code(s): I10 - ESSENTIAL (PRIMARY) HYPERTENSION (7) Atrial fibrillation Code(s): I48.91 - UNSPECIFIED ATRIAL FIBRILLATION Qualifiers: Atrial fibrillation type: paroxysmal Qualified Code(s): I48.0 - Paroxysmal atrial fibrillation (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 - MALIGNANT NEOPLASM OF COLON, UNSPECIFIED Assessment/Plan (1) GIB -s/p colonoscopy and endoscopy -can restart eliquis today (2) Anemia -secondary to GIB -s/p transfusion -stable (3) Bronchitis Assessment/Plan: -resolved -continue prednisone 10mg daily, day 3/3 -stop prednisone today Code(s): J98.11 - ATELECTASIS (4) DVT (deep venous thrombosis) Assessment/Plan: -restart eliquis today Code(s): I82.409 - ACUTE EMBOLISM AND THOMBOS UNSP DEEP VN UNSP LOWER EXTREMITY (5) HLD (hyperlipidemia) Assessment/Plan: -continue lipitor Code(s): E78.5 - HYPERLIPIDEMIA, UNSPECIFIED (6) HTN (hypertension) Assessment/Plan: -continue toprol -diltiazem added -continue losartan Code(s): I10 - ESSENTIAL (PRIMARY) HYPERTENSION (7) Atrial fibrillation Assessment/Plan: -rate controlled -now on diltiazem -continue toprol -restart eliquis Code(s): I48.91 - UNSPECIFIED ATRIAL FIBRILLATION Qualifiers: Atrial fibrillation type: paroxysmal Qualified Code(s): I48.0 - Paroxysmal atrial fibrillation (8) Colon adenocarcinoma -appreciate oncology assistance -check CEA -check CT C/A/P
[2016-09-02] MEDS: ATORVASTATIN CA 40 MG TABLET (FP) PO SCH (22:05)
[2016-09-02] MEDS: APIXABAN 5 MG TABLET PO SCH (22:05)
[2016-09-03] MEDS: dilTIAZem HCL 60 MG TABLET (FP) PO SCH ×3 (05:56→21:09)
[2016-09-03 07:00] LABS: BASOPHIL 0.4 % (0-2.0); EOSINOPHIL 1.8 % (0-4.5); MCH 26.3 pg (25.7-33.7); MCHC 32.3 g/dl (32.0-36.0); MEAN CELL VOLUME 81.4 fl (80-96); MEAN PLT VOLUME 9.1 fl (7.5-11.1); NEUTROPHILS 78.6 % (42.8-82.8); PLATELET COUNT 154 K/MM3 (134-434); RDW 18.9 % (11.6-15.6); WHITE BLOOD COUNT 11.3 K/mm3 (4.0-10.0)
[2016-09-03 07:14] LABS: CALCIUM 7.5 mg/dL (8.5-10.1); CREATININE 0.9 mg/dL (0.55-1.02); MAGNESIUM 1.9 mg/dL (1.8-2.4); PHOSPHOROUS 2.6 mg/dL (2.5-4.9)
[2016-09-03] MEDS: LOSARTAN POTASSIUM 50 MG TABLET (FP) PO SCH (10:11)
[2016-09-03] MEDS: APIXABAN 5 MG TABLET PO SCH ×2 (10:11→21:08)
[2016-09-03] MEDS: DOCUSATE SODIUM 100 MG CAPSULE (FP) PO SCH ×2 (10:11→21:03)
[2016-09-03] MEDS: FOLIC ACID 1 MG TABLET (FP) PO SCH (10:12)
[2016-09-03] MEDS: POLYETHYLENE GLYCOL 3350 119 GM BTL PO SCH ×2 (10:13→21:03)
[2016-09-03] MEDS: PANTOPRAZOLE 40 MG TABLET (FP) PO SCH (10:14)
[2016-09-03] MEDS: METOPROLOL SUCCINATE 25 MG TAB.SR.24H (FP) PO SCH ×2 (10:14→21:09)
--- NOTE | 2016-09-03 10:40 | PN ---
Progress Note (short form) - Note Progress Note: s: no cp sob palps dizzy o: Vital Signs Period Temp Pulse Resp BP Sys/Galvez Pulse Ox Last 24 Hr 97.6 F-98.5 F 82-95 18-18 107-117/50-64 96 Constitutional: Yes: Well Nourished, No Distress Eyes: No: Sclera Icterus Respiratory: Yes: CTA Bilaterally. No: Accessory Muscle Use, Rales, Wheezes Gastrointestinal: Yes: Normal Bowel Sounds. No: Distention, Hepatomegaly, Palpable Mass, Tenderness Cardiovascular: Yes: Pulse Irregular JVD: No Heart Sounds: Yes: S1, S2. No: Gallop Murmur: No: Systolic Murmur, Diastolic Murmur Extremities: No: Cold, Cyanosis Edema: no le edema Integumentary: No: Jaundice Neurological: Yes: Alert, Oriented (x3) Psychiatric: No: Agitated Current Medications Generic Name Dose Route Start Last Admin Trade Name Freq PRN Reason Stop Dose Admin Acetaminophen 650 mg 08/07/16 05:14 Tylenol - PO Q4H PRN FEVER OR PAIN Albuterol/Ipratropium 1 amp 08/25/16 15:04 08/25/16 22:35 Duoneb - NEB 1 amp Q6H PRN Administration SHORTNESS OF BREATH Apixaban 5 mg 09/02/16 22:00 09/03/16 10:11 Eliquis - PO 5 mg BID MARIELLE Administration Atorvastatin Calcium 40 mg 08/07/16 22:00 09/02/16 22:05 Lipitor - PO 40 mg HS MARIELLE Administration Diltiazem HCl 60 mg 09/01/16 17:30 09/03/16 05:56 Cardizem - PO Not Given TID MARIELLE Docusate Sodium 100 mg 08/11/16 13:15 09/03/16 10:11 Colace - PO Not Given BID MARIELLE Folic Acid 1 mg 08/07/16 10:00 09/03/16 10:12 Folic Acid - PO 1 mg DAILY MARIELLE Administration Losartan Potassium 50 mg 08/26/16 13:14 09/03/16 10:11 Cozaar - PO 50 mg DAILY MARIELLE Administration Metoprolol Succinate 25 mg 09/01/16 22:00 09/03/16 10:14 Toprol Xl - PO 25 mg BID MARIELLE Administration Pantoprazole Sodium 40 mg 08/25/16 13:30 09/03/16 10:14 Protonix - PO 40 mg DAILY MARIELLE Administration Polyethylene Glycol 17 gm 08/11/16 13:15 09/03/16 10:13 Miralax (For Daily Use) - PO Not Given BID MARIELLE CBC, BMP 09/03/16 05:35 09/03/16 05:35 ekg 09/01: AFib with HR 112; no path Q's; no isch ST-T abn; PVCs present tele: AFib, rate controlled Echo 07/27/16: nl LV/EF; nl RV; mild LAE/PIPE; mild TR; peak RVSP 58; trivial peric eff not hemody significant CTA chest 08/07: no PE; LLL consolidation/ATX; large hiatal hernia with intrathoracic stomach Assessment/Plan sob, PND previously, now with bronchitis vs PNA: -large hiatal hernia with intrathoracic stomach is also a possible cause of orthopnea sx's -no chf findings on CXR or CT chest when admitted with this few weeks ago. -unlikely that moderately elevated pulm pressure would cause this sob, when not acutely elevated (CTA neg for PE x 2 recently, and RV not dilated at that time) -sx's could be explained by BONILLA, which could also explain the pulm HTN--plan is for eventual sleep study as outpt -no isch ecg findings and serial trop neg x 3--stress testing being deferred as she has had no sx's suspicious of angina -cont tx of acute respiratory infection per dr be, consider outpt PFTs parox AF, MAT: -one episode of suspected MAT as well as runs of paroxysmal afib on tele during recent prior admit 07/21 -now with AF mildly rapid 09/01--HR responded well to IVP diltiazem. -will cont toprol 25 bid (has had wheezing here, though this is likely transient from pneumonitis) -cont diltiazem 60 TID as well, rate controlled currently -given CHADS VASC is 4, with approx 4%/year CVA risk (which is > expected bleeding risk from AC), would rec indefinite AC for cva prophylaxis -eliquis was on hold for bleeding sigmoid polyp, now s/p polypectomy--cleared to resume AC after 5 days per GI, now back on AC LE DVT: -AC as disc'd, heme following HTN: -bp controlled here -cont same meds HPL: -cont outpt med regimen dizzy/poor balance: -orthostatics normal here parotic mass -s/p recent biopsy--per ENT, onc
--- NOTE | 2016-09-03 13:00 | PN ---
Progress Note, Physician Chief Complaint: Ms Stallings is without complaint today, happily eating ice cream. No cp, sob, n /v today. - Current Medication List Current Medications: Active Medications Acetaminophen (Tylenol -) 650 mg PO Q4H PRN PRN Reason: FEVER OR PAIN Albuterol/Ipratropium (Duoneb -) 1 amp NEB Q6H PRN PRN Reason: SHORTNESS OF BREATH Last Admin: 08/25/16 22:35 Dose: 1 amp Apixaban (Eliquis -) 5 mg PO BID [facility] Last Admin: 09/03/16 10:11 Dose: 5 mg Atorvastatin Calcium (Lipitor -) 40 mg PO HS [facility] Last Admin: 09/02/16 22:05 Dose: 40 mg Diltiazem HCl (Cardizem -) 60 mg PO TID [facility] Last Admin: 09/03/16 05:56 Dose: Not Given Docusate Sodium (Colace -) 100 mg PO BID [facility] Last Admin: 09/03/16 10:11 Dose: Not Given Folic Acid (Folic Acid -) 1 mg PO DAILY [facility] Last Admin: 09/03/16 10:12 Dose: 1 mg Losartan Potassium (Cozaar -) 50 mg PO DAILY [facility] Last Admin: 09/03/16 10:11 Dose: 50 mg Metoprolol Succinate (Toprol Xl -) 25 mg PO BID [facility] Last Admin: 09/03/16 10:14 Dose: 25 mg Pantoprazole Sodium (Protonix -) 40 mg PO DAILY [facility] Last Admin: 09/03/16 10:14 Dose: 40 mg Polyethylene Glycol (Miralax (For Daily Use) -) 17 gm PO BID [facility] Last Admin: 09/03/16 10:13 Dose: Not Given - Objective Vital Signs: Vital Signs Temperature 97.6 F 09/03/16 06:00 Pulse Rate 82 09/03/16 06:00 Respiratory Rate 18 09/03/16 06:00 Blood Pressure 116/50 09/03/16 06:00 O2 Sat by Pulse Oximetry (%) 96 09/02/16 21:00 Constitutional: Yes: Well Nourished, No Distress, Calm Cardiovascular: Yes: Pulse Irregular. No: Tachycardia, Gallop, Murmur, Rub Respiratory: Yes: Regular, CTA Bilaterally. No: Rales, Rhonchi, Wheezes Gastrointestinal: Yes: Normal Bowel Sounds, Soft. No: Distention, Tenderness Extremities: Yes: WNL Edema: No Labs: CBC, BMP 09/03/16 05:35 09/03/16 05:35 INR, PTT INR 1.01 (0.82-1.09) 08/28/16 07:00 Problem List - Problems (1) GI bleed Code(s): K92.2 - GASTROINTESTINAL HEMORRHAGE, UNSPECIFIED (2) Anemia Code(s): D64.9 - ANEMIA, UNSPECIFIED (3) Bronchitis Code(s): J40 - BRONCHITIS, NOT SPECIFIED ACUTE OR CHRONIC (4) DVT (deep venous thrombosis) Code(s): I82.409 - ACUTE EMBOLISM AND THOMBOS UNSP DEEP VN UNSP LOWER EXTREMITY (5) HLD (hyperlipidemia) Code(s): E78.5 - HYPERLIPIDEMIA, UNSPECIFIED (6) HTN (hypertension) Code(s): I10 - ESSENTIAL (PRIMARY) HYPERTENSION (7) Atrial fibrillation Code(s): I48.91 - UNSPECIFIED ATRIAL FIBRILLATION Qualifiers: Atrial fibrillation type: paroxysmal Qualified Code(s): I48.0 - Paroxysmal atrial fibrillation (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 - MALIGNANT NEOPLASM OF COLON, UNSPECIFIED Assessment/Plan (1) GIB -s/p colonoscopy and endoscopy -resolved (2) Anemia -secondary to GIB -s/p transfusion -stable (3) Bronchitis Assessment/Plan: -resolved -s/p full treatment -encourage incentive spirometer -will consult pulmonary for evaluation of persistent consolidation Code(s): J98.11 - ATELECTASIS (4) DVT (deep venous thrombosis) Assessment/Plan: -continue eliquis Code(s): I82.409 - ACUTE EMBOLISM AND THOMBOS UNSP DEEP VN UNSP LOWER EXTREMITY (5) HLD (hyperlipidemia) Assessment/Plan: -continue lipitor Code(s): E78.5 - HYPERLIPIDEMIA, UNSPECIFIED (6) HTN (hypertension) Assessment/Plan: -continue toprol -diltiazem added -continue losartan Code(s): I10 - ESSENTIAL (PRIMARY) HYPERTENSION (7) Atrial fibrillation Assessment/Plan: -rate controlled -now on diltiazem -continue toprol -eliquis restarted Code(s): I48.91 - UNSPECIFIED ATRIAL FIBRILLATION Qualifiers: Atrial fibrillation type: paroxysmal Qualified Code(s): I48.0 - Paroxysmal atrial fibrillation (8) Colon adenocarcinoma -appreciate oncology assistance -CEA normal -CT C/A/P reviewed
--- NOTE | 2016-09-03 16:44 | PN ---
Progress Note (short form) - Note Progress Note: had d/w Ms. Stallings today re: cancerous colon polyp that was removed on recent colonoscopy. Per discussion with Dr. Koehler, opted for conservative measures with repeat flex sig in 6 months for reassessment of polypectomy site when A/C can be held more safely as it was recently started for newly diagnosed DVT about A month ago Problem List - Problems (1) Rectal bleed Code(s): K62.5 - HEMORRHAGE OF ANUS AND RECTUM
--- NOTE | 2016-09-03 17:06 | CON.PULM ---
Consult Consult Specialty:: PULMONARY Referred by:: RADHA Reason for Consultation:: ABNORMAL CT CHEST - History of Present Illness Chief Complaint: SOB History of Present Illness: Ms Stallings is an 89 year old female who comes in after being discharged for shortness of breath. She was discharged to SNF, complained of shortness of breath there, and returned for shortness of breath. She was evaluated in the ER and admitted for pneumonia. She currently says she is short of breath. She denies fevers, chills, lightheadedness, dizziness, chest pain, nausea, vomiting , abdominal pain, or swelling. I have been asked to eval worsening left lower lobe atelectasis noted on ct chest. - History Source History Provided By: Patient, Medical Record Limitations to Obtaining History: No Limitations - Past Medical History BOARD WINDER: No: Alzheimer's Cardio/Vascular: Yes: CHF, HTN, Hyperlipdemia Pulmonary: Yes: COPD ENT: Yes: Other (left parotid tumor) - Past Surgical History Past Surgical History: Yes: None - Alcohol/Substance Use Hx Alcohol Use: No (social) History of Substance Use: reports: None - Smoking History Smoking history: Former smoker (quit over 40 years ago) Have you smoked in the past 12 months: No - Social History Usual Living Arrangement: Alone ADL: Independent 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 [employer] History of Recent Travel: No Home Medications - Allergies Allergies/Adverse Reactions: Allergies Allergy/AdvReac Type Severity Reaction Status Date / Time No Known Allergies Allergy Verified 08/06/16 21:09 - Home Medications Home Medications: Ambulatory Orders Atorvastatin Ca [Lipitor] 40 mg PO DAILY 07/27/16 Enalapril Maleate [Vasotec] 20 mg PO BID 07/27/16 Nifedipine ER [Procardia XL -] 60 mg PO DAILY 07/27/16 Acetaminophen [Tylenol .Regular Strength -] 650 mg PO Q4H PRN #0 tablet Apixaban [Eliquis] 5 mg PO BID #60 tablet 08/06/16 Folic Acid - 1 mg PO DAILY tablet 08/06/16 Metoprolol Succinate [Toprol XL -] 25 mg PO BID tab.sr.24h 08/06/16 Family Disease History - Family Disease History Family Disease History: Other: Father ( 70's, unclear cause), Mother ( 96 "old age"), Brother (2 bros, 1 killed in WWII, 1 from ulcer complication ), Son (No children), Daughter (No children) Other Family History: No family history of colorectal cancer or other GI malignancy Review of Systems - Review of Systems Constitutional: denies: Chills, Fever Eyes: denies: Blurred Vision HENT: denies: Difficult Swallowing Neck: denies: Decreased ROM Cardiovascular: reports: Shortness of Breath. denies: Chest Pain Respiratory: reports: Exercise Intolerance, SOB on Exertion. denies: Cough, Hemoptysis, Wheezing Gastrointestinal: denies: Abdominal Pain Genitourinary: reports: No Symptoms Breasts: reports: No Symptoms Reported Neurological: reports: No Symptoms Physical Exam Vital Sings: Vital Signs Temperature 97.7 F 09/03/16 10:00 Pulse Rate 92 H 09/03/16 14:19 Respiratory Rate 22 09/03/16 14:19 Blood Pressure 105/50 09/03/16 14:19 O2 Sat by Pulse Oximetry (%) 95 09/03/16 09:00 Constitutional: Yes: Calm Eyes: Yes: EOM Intact HENT: Yes: Normocephalic Neck: Yes: Trachea Midline Cardiovascular: Yes: S1, S2 Respiratory: Yes: Diminished (BIBASILAR) Gastrointestinal: Yes: Normal Bowel Sounds Edema: No Labs: CBC, BMP 09/03/16 05:35 09/03/16 05:35 Imaging - Results Chest X-ray: Image Reviewed Cat Scan: Image Reviewed Problem List - Problems (1) Anemia Code(s): D64.9 - ANEMIA, UNSPECIFIED (2) Atelectasis Code(s): J98.11 - ATELECTASIS (3) Atrial fibrillation Code(s): I48.91 - UNSPECIFIED ATRIAL FIBRILLATION Qualifiers: Atrial fibrillation type: paroxysmal Qualified Code(s): I48.0 - Paroxysmal atrial fibrillation (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 CONSIDER INCENTIVE SPIROMETER NO OBJECTION FROM PULMONARY STANDPOINT FOR DISCHARGE PLANNING Maranda GONZALEZ MD
[2016-09-03] MEDS: ATORVASTATIN CA 40 MG TABLET (FP) PO SCH (21:08)
[2016-09-04] MEDS: dilTIAZem HCL 60 MG TABLET (FP) PO SCH ×2 (05:47→13:36)
[2016-09-04] MEDS: DOCUSATE SODIUM 100 MG CAPSULE (FP) PO SCH (09:26)
[2016-09-04] MEDS: POLYETHYLENE GLYCOL 3350 119 GM BTL PO SCH (09:26)
[2016-09-04] MEDS: FOLIC ACID 1 MG TABLET (FP) PO SCH (09:27)
[2016-09-04] MEDS: LOSARTAN POTASSIUM 50 MG TABLET (FP) PO SCH (09:27)
[2016-09-04] MEDS: PANTOPRAZOLE 40 MG TABLET (FP) PO SCH (09:27)
[2016-09-04] MEDS: METOPROLOL SUCCINATE 25 MG TAB.SR.24H (FP) PO SCH (09:27)
[2016-09-04] MEDS: APIXABAN 5 MG TABLET PO SCH (09:27)
--- NOTE | 2016-09-04 10:22 | PN ---
Progress Note (short form) - Note Progress Note: s: no cp sob palps dizzy o: Vital Signs Period Temp Pulse Resp BP Sys/Galvez Pulse Ox Last 24 Hr 98 F-98.4 F 85-102 18-22 105-139/45-78 95 Constitutional: Yes: Well Nourished, No Distress Eyes: No: Sclera Icterus Respiratory: Yes: CTA Bilaterally. No: Accessory Muscle Use, Rales, Wheezes Gastrointestinal: Yes: Normal Bowel Sounds. No: Distention, Hepatomegaly, Palpable Mass, Tenderness Cardiovascular: Yes: Pulse Irregular JVD: No Heart Sounds: Yes: S1, S2. No: Gallop Murmur: No: Systolic Murmur, Diastolic Murmur Extremities: No: Cold, Cyanosis Edema: no le edema Integumentary: No: Jaundice Neurological: Yes: Alert, Oriented (x3) Psychiatric: No: Agitated Current Medications Generic Name Dose Route Start Last Admin Trade Name Freq PRN Reason Stop Dose Admin Acetaminophen 650 mg 08/07/16 05:14 Tylenol - PO Q4H PRN FEVER OR PAIN Albuterol/Ipratropium 1 amp 08/25/16 15:04 08/25/16 22:35 Duoneb - NEB 1 amp Q6H PRN Administration SHORTNESS OF BREATH Apixaban 5 mg 09/02/16 22:00 09/04/16 09:27 Eliquis - PO 5 mg BID [facility] Administration Atorvastatin Calcium 40 mg 08/07/16 22:00 09/03/16 21:08 Lipitor - PO 40 mg HS [facility] Administration Diltiazem HCl 60 mg 09/01/16 17:30 09/04/16 05:47 Cardizem - PO 60 mg TID [facility] Administration Docusate Sodium 100 mg 08/11/16 13:15 09/04/16 09:26 Colace - PO Not Given BID [facility] Folic Acid 1 mg 08/07/16 10:00 09/04/16 09:27 Folic Acid - PO 1 mg DAILY [facility] Administration Losartan Potassium 50 mg 08/26/16 13:14 09/04/16 09:27 Cozaar - PO 50 mg DAILY [facility] Administration Metoprolol Succinate 25 mg 09/01/16 22:00 09/04/16 09:27 Toprol Xl - PO 25 mg BID [facility] Administration Pantoprazole Sodium 40 mg 08/25/16 13:30 09/04/16 09:27 Protonix - PO 40 mg DAILY [facility] Administration Polyethylene Glycol 17 gm 08/11/16 13:15 09/04/16 09:26 Miralax (For Daily Use) - PO Not Given BID [facility] CBC, BMP 09/03/16 05:35 09/03/16 05:35 ekg 09/01: AFib with HR 112; no path Q's; no isch ST-T abn; PVCs present tele: AFib, rate controlled Echo 07/27/16: nl LV/EF; nl RV; mild LAE/PIPE; mild TR; peak RVSP 58; trivial peric eff not hemody significant CTA chest 08/07: no PE; LLL consolidation/ATX; large hiatal hernia with intrathoracic stomach Assessment/Plan sob, PND previously, now with bronchitis vs PNA: -large hiatal hernia with intrathoracic stomach is also a possible cause of orthopnea sx's -no chf findings on CXR or CT chest when admitted with this few weeks ago. -unlikely that moderately elevated pulm pressure would cause this sob, when not acutely elevated (CTA neg for PE x 2 recently, and RV not dilated at that time) -sx's could be explained by BONILLA, which could also explain the pulm HTN--plan is for eventual sleep study as outpt -no isch ecg findings and serial trop neg x 3--stress testing being deferred as she has had no sx's suspicious of angina -cont tx of acute respiratory infection per dr be, consider outpt PFTs parox AF, MAT: -one episode of suspected MAT as well as runs of paroxysmal afib on tele during recent prior admit 07/21 -now with AF mildly rapid 09/01--HR responded well to IVP diltiazem. -will cont toprol 25 bid (has had wheezing here, though this is likely transient from pneumonitis) -cont diltiazem 60 TID as well, rate controlled currently -given CHADS VASC is 4, with approx 4%/year CVA risk (which is > expected bleeding risk from AC), would rec indefinite AC for cva prophylaxis -eliquis was on hold for bleeding sigmoid polyp, now s/p polypectomy--cleared to resume AC after 5 days per GI, now back on AC LE DVT: -AC as disc'd, heme following HTN: -bp controlled here -cont same meds HPL: -cont outpt med regimen dizzy/poor balance: -orthostatics normal here parotic mass -s/p recent biopsy--per ENT, onc can dc tele
--- NOTE | 2016-09-04 11:55 | DS ---
Physical Examination Vital Signs: Vital Signs Temperature 98.6 F 09/04/16 10:00 Pulse Rate 82 09/04/16 10:00 Respiratory Rate 18 09/04/16 10:00 Blood Pressure 123/67 09/04/16 10:00 O2 Sat by Pulse Oximetry (%) 96 09/04/16 09:00 Constitutional: Yes: Well Nourished, No Distress, Calm HENT: Yes: Other (L facial mass) Cardiovascular: Yes: Pulse Irregular. No: Gallop, Murmur, Rub Respiratory: Yes: Regular, CTA Bilaterally. No: Rales, Rhonchi, Wheezes Gastrointestinal: Yes: Normal Bowel Sounds, Soft. No: Distention, Tenderness Extremities: Yes: WNL Edema: No Labs: CBC, BMP 09/03/16 05:35 09/03/16 05:35 Discharge Summary Reason For Visit: HYPOXEMIA DYSPNEA OF EXERTION Current Active Problems Anemia (Acute) Atelectasis (Acute) Atrial fibrillation (Acute) Bronchitis (Acute) Colon adenocarcinoma (Acute) Dyspnea on exertion (Acute) Earache on left (Acute) GI bleed (Acute) Hypoxemia (Acute) Parotid tumor (Acute) Pneumonia (Acute) Rectal bleed (Acute) Hospital Course: (1) GI bleed Code(s): K92.2 - GASTROINTESTINAL HEMORRHAGE, UNSPECIFIED (2) Anemia Code(s): D64.9 - ANEMIA, UNSPECIFIED (3) Bronchitis Code(s): J40 - BRONCHITIS, NOT SPECIFIED ACUTE OR CHRONIC (4) DVT (deep venous thrombosis) Code(s): I82.409 - ACUTE EMBOLISM AND THOMBOS UNSP DEEP VN UNSP LOWER EXTREMITY (5) HLD (hyperlipidemia) Code(s): E78.5 - HYPERLIPIDEMIA, UNSPECIFIED (6) HTN (hypertension) Code(s): I10 - ESSENTIAL (PRIMARY) HYPERTENSION (7) Atrial fibrillation Code(s): I48.91 - UNSPECIFIED ATRIAL FIBRILLATION Qualifiers: Atrial fibrillation type: paroxysmal Qualified Code(s): I48.0 - Paroxysmal atrial fibrillation (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 - MALIGNANT NEOPLASM OF COLON, UNSPECIFIED Ms Stallings is a very pleasant 89 year old female who comes in with RSV bronchitis. She had a long recovery with prolonged prednisone use, she is currently weaned off of prednisone and oxygen. She then developed a GI bleed and underwent a colonoscopy, she was found to have a colon adenocarcinoma and will need close follow up. She then went into [facility] and was seen by cardiology, she is currently rate controlled. She is safe to restart her eliquis and has been cleared for discharge by all specialties. 35 minutes spent in preparation of this discharge Condition: Good - Instructions Diet, Activity, Other Instructions: regular diet. Up with assistance, further activity per PT at SNF. Referrals: Philipp Wyatt DO [Staff Physician] - Eduard Vuong MD [Staff Physician] - Kendall Koehler MD [Staff Physician] - Jeni Yoo MD [Non Staff, Medical] - Disposition: INTERMEDIATE FACILITY - Home Medications Comprehensive Discharge Medication List: Ambulatory Orders Atorvastatin Ca [Lipitor] 40 mg PO DAILY 07/27/16 Acetaminophen [Tylenol .Regular Strength -] 650 mg PO Q4H PRN #0 tablet Apixaban [Eliquis] 5 mg PO BID #60 tablet 08/06/16 Folic Acid - 1 mg PO DAILY tablet 08/06/16 Metoprolol Succinate [Toprol XL -] 25 mg PO BID tab.sr.24h 08/06/16 Albuterol 2.5/Ipratropium 0.5 [Duoneb -] 1 amp NEB Q6H PRN #0 amp 09/04/16 Diltiazem [Cardizem -] 60 mg PO TID tablet 09/04/16 Losartan Potassium [Cozaar -] 50 mg PO DAILY tablet 09/04/16 Pantoprazole Sodium [Protonix -] 40 mg PO DAILY tablet.ec 09/04/16 Polyethylene Glycol 3350 [Miralax 119 gm Btl -] 17 gm PO BID bottle 09/04/16
[2016-09-04 14:40] VITALS: BP 127/57; PULSE 98; TEMP 98.2
== END 2016-09-04 16:15 | DRG 202 ==
LOC: JER 20:34 → JERBED 08-07 03:04 → UNDOADMIN 08-07 03:14 → J5S 08-07 05:05 → J6S 08-31 05:36 → J4S 09-01 16:10
PROVIDERS: ADMIT Internal Medicine; ATTEND Internal Medicine
PROC: 0DBN8ZX Excision of Sigmoid Colon, Via Natural or Artificial Opening Endoscopic, Diagnostic (ICD-10-PCS; 2016-08-28)
PROC: 0DBP8ZX Excision of Rectum, Via Natural or Artificial Opening Endoscopic, Diagnostic (ICD-10-PCS; 2016-08-28)
PROC: 0DJ08ZZ Inspection of Upper Intestinal Tract, Via Natural or Artificial Opening Endoscopic (ICD-10-PCS; 2016-08-28)
PROC: 0DBK8ZX Excision of Ascending Colon, Via Natural or Artificial Opening Endoscopic, Diagnostic (ICD-10-PCS; principal; 2016-08-28 13:00)
DX: J20.5 Acute bronchitis due to respiratory syncytial virus (principal); C18.7 Malignant neoplasm of sigmoid colon; K92.2 Gastrointestinal hemorrhage, unspecified; J98.11 Atelectasis; M48.54XA Collapsed vertebra, not elsewhere classified, thoracic region, initial encounter for fracture; I10 Essential (primary) hypertension; E78.5 Hyperlipidemia, unspecified; Z86.718 Personal history of other venous thrombosis and embolism; Z79.01 Long term (current) use of anticoagulants; F41.1 Generalized anxiety disorder; I48.0 Paroxysmal atrial fibrillation; R25.1 Tremor, unspecified; H92.02 Otalgia, left ear; K44.9 Diaphragmatic hernia without obstruction or gangrene; N28.1 Cyst of kidney, acquired; D12.2 Benign neoplasm of ascending colon; K62.1 Rectal polyp; K29.40 Chronic atrophic gastritis without bleeding; I27.2 Other secondary pulmonary hypertension; R26.89 Other abnormalities of gait and mobility; D50.0 Iron deficiency anemia secondary to blood loss (chronic); R06.09 Other forms of dyspnea
CPT/HCPCS: 36415; 36430; 71010-TC; 71260-TC; 74177-TC; 80048; 80053; 81003; 81015; 82272; 82378; 82550; 82728; 83540; 83735; 84100; 84484; 85025; 85027; 85610; 85651; 86850; 86900; 86901; 86922; 87040; 87070; 87086; 87186; 87205; 87254; 87804; 87899; 88305-TC; 90670; 90732; 93005; 93010; 94640; 94761; 97116-GP; 97161-GP; 99283-25; G0008; G0009; P9038; P9058; Q2037; Q9967